=== PATIENT | female | born 1995 | race African-American/Black ===

== ENCOUNTER 2020-11-04 13:25 | Emergency (ER) | payer OTHER ==
[2020-11-04] MEDS ORDERED: NA CHLORIDE 0.9% 1,000 ML ONE (15:56)
[2020-11-04] MEDS ORDERED: MORPHINE 4 MG/ML SYR ONE (15:56)
--- NOTE | 2020-11-04 16:31 | ER ---
Nurse's Notes [facility] Name: Nicole Wolff Age: 24 yrs Sex: Female : 1995 Arrival Date: 11/04/2020 Time: 13:26 Bed 25 Private MD: Diagnosis: Migraine Presentation: 11/04 13:50 Chief complaint: Patient states: I have migraine since yesterday. Almost 8 weeks ca1 . Coronavirus screen: Client denies travel out of the [place] in the last 14 days. headache, Client presents with at least one sign or symptom that may indicate coronavirus-19. Standard/surgical mask placed on the client. Provider contacted for isolation considerations. Ebola Screen: Patient negative for fever greater than or equal to 101.5 degrees Fahrenheit, and additional compatible Ebola Virus Disease symptoms Patient denies exposure to infectious person. Patient denies travel to an Ebola-affected area in the 21 days before illness onset. No symptoms or risks identified at this time. Initial Sepsis Screen: Does the patient meet any 2 criteria? No. Patient's initial sepsis screen is negative. Does the patient have a suspected source of infection? No. Patient's initial sepsis screen is negative. Risk Assessment: Do you want to hurt yourself or someone else? Patient reports no desire to harm self or others. Onset of symptoms was November 04, 2020. 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 - Social history:: Smoking status: Patient denies any tobacco usage or history of. - Family history:: not pertinent. - Hospitalizations: : No recent hospitalization is reported. Screenin:53 Abuse screen: Denies threats or abuse. Denies injuries from another. Nutritional zb screening: No deficits noted. Tuberculosis screening: No symptoms or risk factors identified. Fall Risk No fall in past 12 months (0 pts). No secondary diagnosis (0 pts). IV access (20 points). Ambulatory Aid- None/Bed Rest/Nurse Assist (0 pts). Gait- Normal/Bed Rest/Wheelchair (0 pts) Mental Status- Oriented to own ability (0 pts). Total Schultz Fall Scale indicates No Risk (0-24 pts). Assessment: 15:30 General: Appears in no apparent distress. uncomfortable, Behavior is calm, cooperative, zb appropriate for age. Pain: Complains of pain in left eye and left rastafarian Pain does not radiate. Pain currently is 8 out of 10 on a pain scale. Quality of pain is described as throbbing, Pain began 1 day ago. Is continuous. 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 Speech is normal, Facial symmetry appears normal, Pupils are PERRLA, Reports headache in left frontal area, photophobia. Cardiovascular: Capillary refill < 3 seconds in bilateral fingers Pulses are all present. Respiratory: Airway is patent Respiratory effort is even, unlabored, Respiratory pattern is regular. GI: No signs and/or symptoms were reported involving the gastrointestinal system. : No signs and/or symptoms were reported regarding the genitourinary system. Reports 8 weeks . EENT: No signs and/or symptoms were reported regarding the EENT system. Derm: Skin is intact, is healthy with good turgor, Skin is normal. Musculoskeletal: Circulation, motion, and sensation intact. Capillary refill < 3 seconds, in bilateral Range of motion: intact in all extremities. 16:44 Reassessment: Patient appears in no apparent distress at this time. Patient and/or jd3 family updated on plan of care and expected duration. Pain level reassessed. Patient is alert, oriented x 3, equal unlabored respirations, skin warm/dry/pink. Patient states feeling better. Vital Signs: 13:50 BP 117 / 87; Pulse 83; Resp 16 S; Temp 97.6(TE); Pulse Ox 100% on R/A; Weight 61.69 kg ca1 (R); Height 5 ft. 1 in. (154.94 cm) (R); Pain 10/10; 16:47 BP 105 / 73; Pulse 78; Resp 17 S; Pulse Ox 100% on R/A; jd3 13:50 Body Mass Index 25.70 (61.69 kg, 154.94 cm) ca1 Gordy Coma Score: 16:29 Eye Response: spontaneous(4). Verbal Response: oriented(5). Motor Response: obeys rn commands(6). Total: 15. ED Course: 13:26 Patient arrived in ED. ag5 13:51 Triage completed. ca1 13:52 Arm band placed on right wrist. ca1 15:17 Jc Olivier MD is Attending Physician. rn 15:33 Lady Joya RN is Primary Nurse. zb 15:53 Inserted saline lock: 20 gauge in right antecubital area, using aseptic technique. jd3 16:44 No provider procedures requiring assistance completed. IV discontinued, intact, jd3 bleeding controlled, No redness/swelling at site. Pressure dressing applied. 16:46 Patient has correct armband on for positive identification. Bed in low position. Call jd3 light in reach. Side rails up X 1. Adult w/ patient. Administered Medications: 15:47 Drug: NS 0.9% 1000 ml Route: IV; Rate: 1000 ml; Site: right antecubital; zb 16:48 Follow up: Response: No adverse reaction; IV Status: Completed infusion; IV Intake: jd3 1000ml 15:47 Drug: morphine 4 mg Route: IVP; Site: right antecubital; zb 16:48 Follow up: Response: No adverse reaction; RASS: Alert and Calm (0) jd3 Intake: 16:48 IV: 1000ml; Total: 1000ml. jd3 Outcome: 16:30 Discharge ordered by . rn 16:44 Discharged to home ambulatory. jd3 16:44 Condition: stable 16:44 Discharge instructions given to patient, Instructed on discharge instructions, follow up and referral plans. Demonstrated understanding of instructions, follow-up care. 16:48 Patient left the ED. jd3 Signatures: Jc Olivier MD MD rn Davies, Jonathon, RN RN jd3 Acob, Cheryl, RN RN ca1 [facility] Lady Joya RN RN zmarcella
--- NOTE | 2020-11-04 16:31 | EDPHYS ---
Physician Documentation [facility] Name: Nicole Wolff Age: 24 yrs Sex: Female : 1995 Arrival Date: 11/04/2020 Time: 13:26 Bed 25 Private MD: ED Physician Jc Olivier HPI: 11/04 15:50 This 24 yrs old Female presents to ER via Ambulatory with complaints of Headache > rn 24hrs Old. 15:50 The patient complains of pain to the . The patient complains of pain to the forehead. rn The patient describes the headache as aching. 15:50 Onset: The symptoms/episode began/occurred yesterday. Associated signs and symptoms: rn Pertinent positives: nausea, Pertinent negatives: altered mental status, neck stiffness, rash, vision changes, vision loss, weakness, vertigo. Severity of symptoms: At its worst the pain was moderate, in the emergency department the pain has improved. The patient has experienced similar episodes in the past. Reports hx of migraines, cant take her normal migraine cocktail because is 8 weeks , tylenol not working, similar to her previous migraines, no focal neuro or vision complaints. . 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 - Social history:: Smoking status: Patient denies any tobacco usage or history of. - Family history:: not pertinent. - Hospitalizations: : No recent hospitalization is reported. ROS: 15:50 Constitutional: Negative for fever, chills, and weight loss, Eyes: Negative for injury, rn pain, redness, and discharge, Neck: Negative for injury, pain, and swelling, Cardiovascular: Negative for chest pain, palpitations, and edema, Respiratory: Negative for shortness of breath, cough, wheezing, and pleuritic chest pain, Abdomen/GI: Negative for abdominal pain, diarrhea, and constipation, Back: Negative for injury and pain, : Negative for injury, bleeding, discharge, and swelling, MS/Extremity: Negative for injury and deformity, Skin: Negative for injury, rash, and discoloration, Neuro: Negative for weakness, numbness, tingling, and seizure. Exam: 15:50 Constitutional: This is a well developed, well nourished patient who is awake, alert, rn and in no acute distress. Head/Face: Normocephalic, atraumatic. Eyes: Pupils equal round and reactive to light, extra-ocular motions intact. Lids and lashes normal. Conjunctiva and sclera are non-icteric and not injected. Cornea within normal limits. Periorbital areas with no swelling, redness, or edema. ENT: MMM Neck: Supple, full range of motion, No Meningismus. Cardiovascular: Regular rate and rhythm. No pulse deficits. Respiratory: No increased work of breathing, no retractions or nasal flaring. Abdomen/GI: soft, non-tender MS/ Extremity: Pulses equal, no cyanosis. Neurovascular intact. Full, normal range of motion. Equal circumference. Neuro: Awake and alert, GCS 15, oriented to person, place, time, and situation. Cranial nerves II-XII grossly intact. Motor strength 5/5 in all extremities. Sensory grossly intact. Cerebellar exam normal Vital Signs: 13:50 BP 117 / 87; Pulse 83; Resp 16 S; Temp 97.6(TE); Pulse Ox 100% on R/A; Weight 61.69 kg ca1 (R); Height 5 ft. 1 in. (154.94 cm) (R); Pain 10/10; 16:47 BP 105 / 73; Pulse 78; Resp 17 S; Pulse Ox 100% on R/A; jd3 13:50 Body Mass Index 25.70 (61.69 kg, 154.94 cm) ca1 Ohlman Coma Score: 16:29 Eye Response: spontaneous(4). Verbal Response: oriented(5). Motor Response: obeys rn commands(6). Total: 15. MDM: 15:17 Patient medically screened. rn 16:29 Differential diagnosis: migraine, tension headache, vasomotor headache. Data reviewed: rn vital signs, nurses notes, and as a result, I will discharge patient. Counseling: I had a detailed discussion with the patient and/or guardian regarding: the historical points, exam findings, and any diagnostic results supporting the discharge/admit diagnosis, the need for outpatient follow up, to return to the emergency department if symptoms worsen or persist or if there are any questions or concerns that arise at home. Response to treatment: the patient's symptoms have markedly improved after treatment, and as a result, I will discharge patient. Special discussion: I discussed with the patient/guardian in detail that at this point there is no indication for admission to the hospital. It is understood, however, that if the symptoms persist or worsen the patient needs to return immediately for re-evaluation. ED course: Pt improved, sleeping, ready to go home, normal neuro exam. . 11/04 15:24 Order name: IV Start; Complete Time: 16:00 rn Administered Medications: 15:47 Drug: NS 0.9% 1000 ml Route: IV; Rate: 1000 ml; Site: right antecubital; zb 16:48 Follow up: Response: No adverse reaction; IV Status: Completed infusion; IV Intake: jd3 1000ml 15:47 Drug: morphine 4 mg Route: IVP; Site: right antecubital; zb 16:48 Follow up: Response: No adverse reaction; RASS: Alert and Calm (0) jd3 Disposition: 11/04/20 16:30 Discharged to Home. Impression: Migraine. - Condition is Stable. - Discharge Instructions: Migraine Headache. - Medication Reconciliation Form, Thank You Letter, Antibiotic Education, Prescription Opioid Use form. - Follow up: Private Physician; When: As needed; Reason: Recheck today's complaints, Re-evaluation by your physician. - Problem is new. - Symptoms have improved. Signatures: Jc Olivier MD MD rn Davies, Jonathon, RN RN jd3 Acob, Cheryl, RN RN ca1 Brown, Zipporah, RN RN zmarcella Corrections: (The following items were deleted from the chart) 16:48 16:30 11/04/2020 16:30 Discharged to Home. Impression: Migraine. Condition is Stable. jd3 Forms are Medication Reconciliation Form, Thank You Letter, Antibiotic Education, Prescription Opioid Use. Follow up: Private Physician; When: As needed; Reason: Recheck today's complaints, Re-evaluation by your physician. Problem is new. Symptoms have improved. rn
[2020-11-07 21:17] VITALS: TEMP 97.6; O2SAT 100
[2020-11-07 21:19] VITALS: BP 105/73
== END 2020-11-04 16:48 | disposition home or self-care (01) ==
LOC: ER 13:25
DX: O26.891 Other specified pregnancy related conditions, first trimester (principal); Z3A.08 8 weeks gestation of pregnancy
CPT/HCPCS: 96361; 96374; 99283; J7030

== ENCOUNTER 2022-07-24 19:17 | Emergency (ER) | payer OTHER ==
--- OUTSIDE RECORDS SUMMARY | 2022-07-24 19:21 | XMS REPORT | Continuity of Care Document ---
:1995 Author Organization [facility] t Address [address] [place] [address] Care Team Providers Name Role Phone DELORES SOLOMON Primary Care Physician Unavailable BONILLA AMAYA Attending Clinician Unavailable KIM KO Attending Clinician Unavailable Kim Rowland Attending Clinician Doctor Unassigned, [place] Attending Clinician Unavailable Lorna Candelario Attending Clinician [facility] Attending Clinician Unavailable [facility] Admitting Clinician Unavailable Payers Payer Name Policy Type Policy Number Effective Date Expiration Date S ource [place]ICA[place] [id number] 2022 00:00:[address] [facility] [id number] 2020 00:00:00 Problems Condition Condition Condition Status Onset Resolution Last Treating Co mments Source Name Details Category Date Date Treatment Clinician Date COVID-19 COVID-19 Disease Active Unive rs 7-13 ity of 00:00: [place] [address] Medical Branch Strep Strep Disease Active Univers pharyngiti pharyngiti 06-10 it y of s s 00:00: [place] [address] Medical Branch Encounter Encounter Disease Active Uni vers for other for other 06-24 ity of general general 00:00: [place] counseling counseling 00 Me dical or advice or advice Bran ch on on contracept contracept ion ion Atypical Atypical Disease Active 2020-1 Overview: Un taryn squamous squamous 2-10 Formattin ity of cell cell 00:00: g of this [place] changes of changes of 00 note Me dical undetermin undetermin might be Branch ed ed different significan significan from the ce (ASCUS) ce (ASCUS) original. on vaginal on vaginal Repeat cytology cytology pap smear in 1 year Overweight Overweight Disease Active 2019-11 U nivers (BMI (BMI 1-25 ity of 25.0-29.9) 25.0-29.9[place] [facility] Genital Genital Disease Active Univers herpes herpes 8-14 ity of simplex simplex 00:00: [address] Allergies, Adverse Reactions, Alerts Allergy Allergy Status Severity Reaction(s) Onset Inactive Treating Comm ents Source Name Type Date Date Clinician NO KNOWN Drug Active Univers ALLERGIE Class ity of S [facility] Social History Social Habit Start Date Stop Date Quantity Comments Source Exposure to 2022-05-31 2022-06-10 Not sure [facility]-CoV-2 00:00:00 12:36:00 [facility] (event) [place] Alcohol intake 2022-04-01 2022-04-01 Ex-drinker [facility] 00:00:00 00:00:00 (finding) [facility] Tobacco use and 2020-10-23 2020-10-23 Smokeless tobacco Un iversity of exposure 00:00:00 00:00:[address] [facility] Sex Assigned At [birth year] Universit y of 00:00:00 00:00:00 [facility] Smoking Status Start Date Stop Date Source Never smoked tobacco [facility] Medications Ordered Filled Start Stop Current Ordering Indication Dosage Frequency Signature Comments Components Source Medication Medication Date Date Medication? Clinician (SIG) Name Name ondansetron Yes [id number] 4mg Take 1 Univers (ZOFRAN) 4 7-13 tablet by ity of mg tablet 00:00: mouth [place] 00 every 8 Medical (eight) Branch hours. amoxicillin 2021- Yes [id number] 500mg Take 1 Univers 500 mg 7-13 07-24 capsule by ity of capsule 00:00: 04:59 mouth in [place] 00 :00 the Medical morning Branch and 1 capsule at noon and 1 capsule in the evening. Do all this for 10 days. dexAMETHaso 2021- Yes [id number] 9mg Take 1.5 Univers ne 7-13 07-14 tablets by ity of (DECADRON) 00:00: 04:59 mouth once [place] 6 mg tablet 00 :00 now for 1 Med ical dose. Branch loratadine Yes [id number] 10mg Take 1 U nivers 10 mg 5-04 tablet by ity of tablet 00:00: mouth [place] 00 daily. Medical Branch fluticasone Yes [id number] 2{spray Use 2 Univers propionate 5-04 } Sprays in ity of 50 00:00: each [place] mcg/actuati 00 nostril Medic al on nasal daily. Branch spray loratadine Yes [id number] 10mg Take 1 U nivers 10 mg 5-04 tablet by ity of tablet 00:00: mouth [place] 00 daily. Medical Branch fluticasone Yes [id number] 2{spray Use 2 Univers propionate 5-04 } Sprays in ity of 50 00:00: each [place] mcg/actuati 00 nostril Medic al on nasal daily. Branch spray NUVARING 2020-11 Yes [id number] 1{each} Insert 1 Univers 0.12-0.015 2-09 Each into ity of mg/24 hr 00:00: vagina [place] vaginal 00 once every Medica l insert month. Branch Insert vaginally and leave in place for 3 consecutiv e weeks, then remove for 1 week. NUVARING 2020-11 Yes [id number] 1{each} Insert 1 Univers 0.12-0.015 2-09 Each into ity of mg/24 hr 00:00: vagina [place] vaginal 00 once every Medica l insert month. Branch Insert vaginally and leave in place for 3 consecutiv e weeks, then remove for 1 week. NUVARING 2020-11 Yes [id number] 1{each} Insert 1 Univers 0.12-0.015 2-09 Each into ity of mg/24 hr 00:00: vagina [place] vaginal 00 once every Medica l insert month. Branch Insert vaginally and leave in place for 3 consecutiv e weeks, then remove for 1 week. NUVARING 2020-11 Yes [id number] 1{each} Insert 1 Univers 0.12-0.015 2-09 Each into ity of mg/24 hr 00:00: vagina [place] vaginal 00 once every Medica l insert month. Branch Insert vaginally and leave in place for 3 consecutiv e weeks, then remove for 1 week. triamcinolo 2020-11 Yes Univer s ne 1-05 ity of acetonide 00:00: [place] 0.1 % 00 Medical ointment Branch triamcinolo 2020-11 Yes Univer s ne 1-05 ity of acetonide 00:00: [place] 0.1 % 00 Medical ointment Branch triamcinolo 2020-11 Yes Univer s ne 1-05 ity of acetonide 00:00: [place] 0.1 % 00 [facility] Yes Univer s ne 1-05 ity of acetonide 00:00: [place] 0.1 % 00 Medical ointment Branch Immunizations Ordered Filled Immunization Date Status Comments [facility] e Immunization Name Name Hep B, Adol or Pedi 2000-12-31 Completed Unive rsity of Dosage 00:00:00 [facility] Hep B, Adol or Pedi 2000-12-31 Completed Unive rsity of Dosage 00:00:00 [facility] Hep B, Adol or Pedi 2000-12-31 Completed Unive rsity of Dosage 00:00:00 [facility] Hep B, Adol or Pedi 2000-12-31 Completed [facility] University of 00:00:00 [facility] HIB 4 Dose Schedule 1998-08-30 Completed [facility]ity [facility] University of 00:00:00 [facility] HIB 4 Dose Schedule 1998-08-30 Completed Unive rsity [facility] Com[facility] University of 00:00:00 [facility] HIB 4 Dose Schedule 1998-08-30 Completed [facility]ive rsity [facility] Com[facility] University of 00:00:00 [facility] HIB 4 Dose Schedule 1998-08-30 Completed Unive rsity of 00:00:00 [facility] Hep B, Adol or Pedi 1997-06-24 Completed Unive rsity of Dosage 00:00:00 [facility] Branch Hep B, Adol or Pedi 1997-06-24 Completed Unive rsity of Dosage 00:00:00 [place] [facility] Hep B, Adol or Pedi 1997-06-24 Completed Unive rsity of Dosage 00:00:00 [facility] Branch Hep B, Adol or Pedi 1997-06-24 Completed Unive rsity of Dosage 00:00:00 [facility] HIB 4 Dose Schedule 1997-06-21 Completed Unive rsity of 00:00:00 [facility] Branch DTP 1997-06-21 Completed University of 00:00:00 [facility] Branch Polio (IPV/OPV) 1997-06-21 Completed Universit y of 00:00:00 [facility] HIB 4 Dose Schedule 1997-06-21 Completed Unive rsity of 00:00:00 [facility] DTP 1997-06-21 Completed University of 00:00:00 [facility] Polio (IPV/OPV) 1997-06-21 Completed Universit y of 00:00:00 [facility] HIB 4 Dose Schedule 1997-06-21 Completed Unive rsity of 00:00:00 [facility] DTP 1997-06-21 Completed University of 00:00:00 [facility] Branch Polio (IPV/OPV) 1997-06-21 Completed Universit y of 00:00:00 [facility] HIB 4 Dose Schedule 1997-06-21 Completed Unive rsity of 00:00:00 [facility] DTP 1997-06-21 Completed University of 00:00:00 [facility] Branch Polio (IPV/OPV) 1997-06-21 Completed Universit y of 00:00:00 [facility] HIB 4 Dose Schedule 1997-03-15 Completed Unive rsity of 00:00:00 [facility] Branch DTP 1997-03-15 Completed University of 00:00:00 [facility] Branch MMR 1997-03-15 Completed University of 00:00:00 [facility] Branch Polio (IPV/OPV) 1997-03-15 Completed Universit y of 00:00:00 [facility] HIB 4 Dose Schedule 1997-03-15 Completed Unive rsity of 00:00:00 [facility] Branch DTP 1997-03-15 Completed University of 00:00:00 [facility] Branch MMR 1997-03-15 Completed University of 00:00:00 [facility] Polio (IPV/OPV) 1997-03-15 Completed Universit y of 00:00:00 [facility] HIB 4 Dose Schedule 1997-03-15 Completed Unive rsity of 00:00:00 [facility] Branch DTP 1997-03-15 Completed University of 00:00:00 [facility] MMR 1997-03-15 Completed University of 00:00:00 [facility] Polio (IPV/OPV) 1997-03-15 Completed Universit y of 00:00:00 [facility] HIB 4 Dose Schedule 1997-03-15 Completed Unive rsity of 00:00:00 [facility] DTP 1997-03-15 Completed University of 00:00:00 [facility] MMR 1997-03-15 Completed University of 00:00:00 [facility] Polio (IPV/OPV) 1997-03-15 Completed Universit y of 00:00:00 [facility] Hep B, Adol or Pedi 1996-10-03 Completed Unive rsity of Dosage 00:00:00 [facility] Hep B, Adol or Pedi 1996-10-03 Completed Unive rsity of Dosage 00:00:00 [facility] Hep B, Adol or Pedi 1996-10-03 Completed Unive rsity of Dosage 00:00:00 [facility] Branch Hep B, Adol or Pedi 1996-10-03 Completed Unive rsity of Dosage 00:00:00 [facility] HIB 4 Dose Schedule 1996-03-03 Completed Unive rsity of 00:00:00 [facility] DTP 1996-03-03 Completed University of 00:00:00 [facility] Polio (IPV/OPV) 1996-03-03 Completed Universit y of 00:00:00 [facility] HIB 4 Dose Schedule 1996-03-03 Completed Unive rsity of 00:00:00 [facility] DTP 1996-03-03 Completed University of 00:00:00 [facility] Polio (IPV/OPV) 1996-03-03 Completed Universit y of 00:00:00 [facility] HIB 4 Dose Schedule 1996-03-03 Completed Unive rsity of 00:00:00 [facility] DTP 1996-03-03 Completed University of 00:00:00 [facility] Polio (IPV/OPV) 1996-03-03 Completed Universit y of 00:00:00 [facility] HIB 4 Dose Schedule 1996-03-03 Completed Unive rsity of 00:00:00 [facility] DTP 1996-03-03 Completed University of 00:00:00 [facility] Polio (IPV/OPV) 1996-03-03 Completed Universit y of 00:00:00 [facility] Vital Signs Vital Name Observation Time Observation Value Comments Source Systolic blood 2022-06-10 17:40:00 141 mm[Hg] Univer sity of pressure [facility] Diastolic blood 2022-06-10 17:40:00 85 mm[Hg] Unive rsity of pressure [facility] Heart rate 2022-06-10 17:40:00 98 /min Universi ty of [facility] Body temperature 2022-06-10 17:40:00 37.89 [address] [facility] Respiratory rate 2022-06-10 17:40:00 18 /min Univ ersity of [facility] Body weight 2022-06-10 17:40:[address] [facility] BMI 2022-06-10 17:40:00 24.51 kg/m2 Universi ty of [facility] Oxygen saturation in 2022-06-10 17:40:00 99 /min University of Arterial blood by [facility] Pulse oximetry Branch Systolic blood 2022-04-01 15:28:00 128 mm[Hg] Univer sity of pressure [facility] Diastolic blood 2022-04-01 15:28:00 95 mm[Hg] Unive rsity of pressure [facility] Heart rate 2022-04-01 15:28:00 99 /min Universi ty of [facility] Body temperature 2022-04-01 15:28:00 36.83 Lisa Univ [address] of [facility] Respiratory rate 2022-04-01 15:28:00 18 /min Univ ersity of [facility] Body height 2022-04-01 15:28:00 157.[address] [facility] Body weight 2022-04-01 15:28:[address] [facility] BMI 2022-04-01 15:28:00 25.97 kg/m2 Universi ty of [facility] Oxygen saturation in 2022-04-01 15:28:00 99 /min University of Arterial blood by [facility] Pulse oximetry Branch Procedures Procedure Date / Time Performed Performing Clinician Sour e RAPID STREP SCREEN 2022-06-10 17:43:00 Bonilla Amaya [facility] FOR GROUP A Medical Branch RAPID INFLUENZA A/B 2022-06-10 17:43:00 Bonilla Amaya [facility] ty of [facility] COVID-19 (ID NOW 2022-06-10 17:43:00 Bonilla Amaya [facility] RAPID TESTING) Medical Branch CONSENT/REFUSAL FOR 2022-06-10 17:36:51 [facility] Name Medical Branch TREATMENT NOTICE OF PRIVACY 2022-04-01 15:24:13 Doctor Unassigned, No Univ ersity [facility] PRACTICES Name Medical Branch CONSENT/REFUSAL FOR 2022-04-01 15:24:01 Doctor Unassigned, [facility] AND Name Medical Branch TREATMENT Encounters Start End Encounter Admission Attending Care Care Encounter Source Date/Time Date/Time Type Type Clinicians Facility Department ID 2022-06-10 2022-06-10 [facility] [id number] Univers 12:45:00 13:31:00 [facility] 2022-06-10 [facility] [id number] Univers 12:45:00 13:31:00 Bonilla PHIPPS [id number] i ty of [place] [id number] [facility] [id number] [place] [address] Branch 2022-04-01 2022-04-01 [facility] [id number] Univers 10:28:00 12:01:00 KIM bull [facility] [place] [facility] 2022-04-01 2022-04-01 [facility] [id number] Univers 10:28:00 12:01:00 Kim PHIPPS [id number] i ty of [place] [id number] [facility] [phone] [place] [id number] Branch 2022-04-01 2022-04-01 Orders Doctor ANTONINO [id number] Univers 00:00:00 00:00:00 Only Unassigned, WALTER [id number] ity of [place] [facility] [id number] [place] as [phone] [address] 2022-03-14 2022-03-14 Stephane Kincaid [facility] [id number] Univers 00:00:00 00:00:00 Lorna Drummond [employer] [id number] it y of [facility] [id number] [place] as MATERNAL [phone] Med ical & CHILD [address] [place] [address] 2021-05-23 2021-05-23 Outpatient X [facility] LISA [id number] Univers 18:31:00 23:25:[address] [facility] Results This patient has no known results.
[2022-07-24 19:44] LABS: Absolute Lymphocytes (CBC) 1.4 K/uL (0.7-4.9); Hematocrit 34.6 % (36.0-45.0); Lymphocytes % 13.6 % (15.3-44.8); MCV 76.4 fL (80-100); MPV 7.8 fL (7.6-11.3); RBC Red Blood Cell Count 4.52 M/uL (3.86-4.86)
[2022-07-24 20:02] LABS: Albumin 3.5 g/dL (3.4-5.0); Bilirubin Total 0.2 mg/dL (0.2-1.0); Potassium 3.3 mmol/L (3.5-5.1); Protein, Total 8.2 g/dL (6.4-8.2)
[2022-07-24] MEDS ORDERED: ONDANSETRON 4 MG/2 ML VIAL ONE ×2 (20:05→20:42)
[2022-07-24] MEDS ORDERED: KETOROLAC 30 MG/ML INJ ONE (20:05)
[2022-07-24] MEDS ORDERED: NA CHLORIDE 0.9% 1,000 ML ONE (20:05)
--- NOTE | 2022-07-24 21:18 | RAD REPORT ---
EXAM DESCRIPTION: CT - Abdomen Pelvis W Contrast - 07/24/2022 8:54 pm CLINICAL HISTORY: Abdominal pain, vomiting COMPARISON: <Comparisons> TECHNIQUE: Biphasic, helical CT imaging of the abdomen and pelvis was performed following 100 ml non -ionic IV contrast. No oral contrast administered. All CT scans are performed using dose optimization technique as appropriate and may include automated exposure control or mA/KV adjustment according to patient size. FINDINGS: No suspicious findings in the lung bases. The liver, spleen, and pancreas show no suspicious findings. Gallbladder and biliary tree are also wi thout suspicious finding. Symmetric renal function is seen with no hydronephrosis or suspicious renal mass. No pyelonephritis o r acute parenchymal process. No bladder abnormalities. No adrenal abnormalities. Uterus and ovaries s how no suspicious findings. No fallopian tube dilatation. No dilated bowel loops or bowel wall thickening. Appendix is normal. No free air, free fluid or infla mmatory stranding. No hernia, mass or bulky lymphadenopathy. No suspicious bony findings. IMPRESSION: Contrast enhanced CT abdomen and pelvis showing no significant or suspicious finding.
[2022-07-24 22:09] LABS: Urine Blood Trace-intact (Negative); Urine Glucose Negative (Negative); Urine Protein Negative (Negative); Urine Specific Gravity 1.015 (1.005-1.030); Urine pH 7.5 (5.0-7.0)
--- NOTE | 2022-07-24 22:44 | EDPHYS ---
Physician Documentation [facility] Name: Nicole Wolff Age: 26 yrs Sex: Female : 1995 Arrival Date: 07/24/2022 Time: 19:19 Bed 8 Private MD: ED Physician Mc Longoria HPI: 07/24 22:41 This 26 yrs old Black Female presents to ER via Ambulatory with complaints of Vomiting. jl9 Patient reports eating some corn from a food truck today.. 22:41 The patient presents to the emergency department with nausea, vomiting. Onset: The jl9 symptoms/episode began/occurred just prior to arrival. Possible causes: bad food exposure. The symptoms are aggravated by nothing. The symptoms are alleviated by nothing. 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 - Social history:: Smoking status: Patient denies any tobacco usage or history of. Patient/guardian denies using alcohol. ROS: 22:41 Constitutional: Negative for fever, chills, and weight loss, Eyes: Negative for injury, jl9 pain, redness, and discharge, ENT: Negative for injury, pain, and discharge, Neck: Negative for injury, pain, and swelling, Cardiovascular: Negative for chest pain, palpitations, and edema, Respiratory: Negative for shortness of breath, cough, wheezing, and pleuritic chest pain. 22:41 Back: Negative for injury and pain, : Negative for injury, bleeding, discharge, and swelling, MS/Extremity: Negative for injury and deformity, Skin: Negative for injury, rash, and discoloration, Neuro: Negative for headache, weakness, numbness, tingling, and seizure, Psych: Negative for depression, anxiety, suicide ideation, homicidal ideation, and hallucinations, Allergy/Immunology: Negative for hives, rash, and allergies, Endocrine: Negative for neck swelling, polydipsia, polyuria, polyphagia, and marked weight changes, Hematologic/Lymphatic: Negative for swollen nodes, abnormal bleeding, and unusual bruising. 22:41 Abdomen/GI: Positive for abdominal pain, nausea and vomiting. Exam: 22:42 Constitutional: This is a well developed, well nourished patient who is awake, alert, jl9 and in no acute distress. Head/Face: Normocephalic, atraumatic. Eyes: Pupils equal round and reactive to light, extra-ocular motions intact. Lids and lashes normal. Conjunctiva and sclera are non-icteric and not injected. Cornea within normal limits. Periorbital areas with no swelling, redness, or edema. ENT: Mucous membranes moist. Neck: Trachea midline, no thyromegaly or masses palpated, and no cervical lymphadenopathy. Supple, full range of motion without nuchal rigidity, or vertebral point tenderness. No Meningismus. Chest/axilla: Normal chest wall appearance and motion. Nontender with no deformity. No lesions are appreciated. Cardiovascular: Regular rate and rhythm with a normal S1 and S2. No gallops, murmurs, or rubs. Normal PMI, no JVD. No pulse deficits. Respiratory: Lungs have equal breath sounds bilaterally, clear to auscultation and percussion. No rales, rhonchi or wheezes noted. No increased work of breathing, no retractions or nasal flaring. 22:42 Back: No spinal tenderness. No costovertebral tenderness. Full range of motion. Skin: Warm, dry with normal turgor. Normal color with no rashes, no lesions, and no evidence of cellulitis. MS/ Extremity: Pulses equal, no cyanosis. Neurovascular intact. Full, normal range of motion. Neuro: Awake and alert, GCS 15, oriented to person, place, time, and situation. Cranial nerves II-XII grossly intact. Motor strength 5/5 in all extremities. Sensory grossly intact. Cerebellar exam normal. Normal gait. Psych: Awake, alert, with orientation to person, place and time. Behavior, mood, and affect are within normal limits. 22:42 Abdomen/GI: Inspection: abdomen appears normal, Bowel sounds: normal, Palpation: mild abdominal tenderness. Vital Signs: 19:32 BP 109 / 78; Pulse 53; Resp 20; Temp 97.8(O); Pulse Ox 100% on R/A; Weight 62.14 kg; eh3 Height 5 ft. 1 in. (154.94 cm); Pain 10/10; 21:00 BP 105 / 76; Pulse 80; Resp 16; Pulse Ox 100% on R/A; jb4 22:00 BP 118 / 80; Pulse 77; Resp 16; Pulse Ox 100% on R/A; jb4 19:32 Body Mass Index 25.89 (62.14 kg, 154.94 cm) eh3 MDM: 19:23 Patient medically screened. [facility] 22:41 Data reviewed: vital signs, nurses notes, lab test result(s), radiologic studies. Counseling: I had a detailed discussion with the patient and/or guardian regarding: the historical points, exam findings, and any diagnostic results supporting the discharge/admit diagnosis, lab results, radiology results, the need for outpatient follow up, to return to the emergency department if symptoms worsen or persist or if there are any questions or concerns that arise at home. 22:42 Response to treatment: the patient's symptoms have resolved after treatment. 07/24 19:24 Order name: CBC with Diff; Complete Time: 19:54 [facility] 07/24 19:24 Order name: CMP; Complete Time: 20:36 07/24 19:24 Order name: Lipase; Complete Time: 20:36 07/24 19:24 Order name: SARS-COV-2 RT PCR (Document "Date of Onset" if Symptomatic); Complete Time: 21:04 07/24 20:04 Order name: Test, Serum; Complete Time: 20:36 [facility] 07/24 22:09 Order name: Urine Dipstick-Ancillary; Complete Time: 22:38 EDIA 07/24 19:24 Order name: IV Saline Lock; Complete Time: 19:37 07/24 19:24 Order name: Labs collected and sent; Complete Time: 19:37 07/24 20:04 Order name: CT Abd/Pelvis - IV Contrast Only; Complete Time: 21:24 07/24 22:19 Order name: Urine --Ancillary (enter results); Complete Time: 09:17 wm Administered Medications: 20:00 Drug: NS 0.9% 1000 ml Route: IV; Rate: 1 bolus; Site: right antecubital; jb4 21:00 Follow up: Response: No adverse reaction; IV Status: Completed infusion; IV Intake: jb4 1000ml 20:32 Drug: Ketorolac 15 mg Route: IVP; Site: right antecubital; jb4 21:00 Follow up: Response: No adverse reaction; Marked relief of symptoms jb4 20:37 Drug: Zofran (Ondansetron) 4 mg Route: IVP; Site: right antecubital; jb4 21:00 Follow up: Response: No adverse reaction; Marked relief of symptoms jb4 Disposition: 07/25 09:17 Co-signature as Attending Physician, Mc Longoria DO I was immediately available on-site ms3 in the emergency department for consultation in the care of the patient. Disposition Summary: 07/24/22 22:43 Discharge Ordered Location: Home jl9 Condition: Stable jl9 Diagnosis - Vomiting jl9 Followup: jl9 - With: Private Physician - When: 1 - 2 days - Reason: Recheck today's complaints, Continuance of care, Re-evaluation by your physician Discharge Instructions: - Discharge Summary Sheet jl9 - Nausea and Vomiting, Adult, [id number] jl9 Forms: - Medication Reconciliation Form jl9 - Thank You Letter jl9 - Antibiotic Education jl9 - Prescription Opioid Use jl9 Prescriptions: - ondansetron 8 mg Oral tablet,disintegrating - take 1 tablet by ORAL route every 8 hours As needed; 12 tablet; Refills: 0, jl9 Product Selection Permitted Signatures: Dispatcher [employer] EDAlex Whitley, RN RN jbMc Soni DO DO ms3 Alaina Ojeda, CHRIS RN 3 Broderick Alcantar jl9 Corrections: (The following items were deleted from the chart) 07/24 19:35 19:34 Home Meds: Vitamin Oral tab 1 tab once daily [Inactive]; [place] [id number] 20:12 19:24 Urine Test ordered. jl9 jb4
--- NOTE | 2022-07-24 22:44 | ER ---
Nurse's Notes [facility] Name: Nicole Wolff Age: 26 yrs Sex: Female : 1995 Arrival Date: 07/24/2022 Time: 19:19 Bed 8 Private MD: Diagnosis: Vomiting Presentation: 07/24 19:32 Chief complaint: Patient states: vomiting since 3pm today. Ate some corn that didn't eh3 taste right, then a mild headache started at 2pm and vomiting at 3pm. Coronavirus screen: Vaccine status: Patient reports being unvaccinated. Ebola Screen: No symptoms or risks identified at this time. Initial Sepsis Screen: Does the patient meet any 2 criteria? No. Patient's initial sepsis screen is negative. Does the patient have a suspected source of infection? No. Patient's initial sepsis screen is negative. Risk Assessment: Do you want to hurt yourself or someone else? Patient reports no desire to harm self or others. Onset of symptoms was July 24, 2022. 19:32 Method Of Arrival: Ambulatory [facility] 19:32 Acuity: KERVIN 3 3 Triage Assessment: 19:34 General: Appears distressed, uncomfortable, Behavior is cooperative, appropriate for eh3 age, crying. Pain: Complains of pain in head Pain does not radiate. Pain currently is 5 out of 10 on a pain scale. Quality of pain is described as aching, Pain began 5 hours ago Is continuous. GI: Reports nausea, vomiting, since 3pm; Diarrhea 2 day ago. 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 - Social history:: Smoking status: Patient denies any tobacco usage or history of. Patient/guardian denies using alcohol. Screenin:45 Abuse screen: Denies threats or abuse. Nutritional screening: No deficits noted. jb4 Tuberculosis screening: No symptoms or risk factors identified. Fall Risk None identified. Assessment: 19:30 General: Appears in no apparent distress. uncomfortable, Behavior is calm, cooperative, jb4 appropriate for age. Pain: Complains of pain in abdomen Pain does not radiate. Pain currently is 10 out of 10 on a pain scale. Neuro: Level of Consciousness is awake, alert, obeys commands, Oriented to person, place, time, situation. Cardiovascular: Patient's skin is warm and dry. Respiratory: Airway is patent Respiratory effort is even, unlabored, Respiratory pattern is regular, symmetrical. GI: Abdomen is flat, non-distended, Bowel sounds present X 4 quads. Abd is soft X 4 quads Abd is non tender in umbilical area, suprapubic area, right lower quadrant and left lower quadrant Abdomen is tender to palpation in epigastric area, right upper quadrant and left upper quadrant. : No signs and/or symptoms were reported regarding the genitourinary system. Derm: Skin is intact, Skin is dry, Skin is normal, Skin temperature is warm. Musculoskeletal: Circulation, motion, and sensation intact. Range of motion: intact in all extremities. 21:00 Reassessment: Patient appears in no apparent distress at this time. Patient and/or jb4 family updated on plan of care and expected duration. Pain level reassessed. Patient is alert, oriented x 3, equal unlabored respirations, skin warm/dry/pink. 22:30 Reassessment: Patient appears in no apparent distress at this time. Patient and/or jb4 family updated on plan of care and expected duration. Pain level reassessed. Patient is alert, oriented x 3, equal unlabored respirations, skin warm/dry/pink. Vital Signs: 19:32 BP 109 / 78; Pulse 53; Resp 20; Temp 97.8(O); Pulse Ox 100% on R/A; Weight 62.14 kg; eh3 Height 5 ft. 1 in. (154.94 cm); Pain 10/10; 21:00 BP 105 / 76; Pulse 80; Resp 16; Pulse Ox 100% on R/A; jb4 22:00 BP 118 / 80; Pulse 77; Resp 16; Pulse Ox 100% on R/A; jb4 19:32 Body Mass Index 25.89 (62.14 kg, 154.94 cm) 3 ED Course: 19:19 Patient arrived in ED. jj6 19:21 Broderick Alcantar is PHCP. jl9 19:21 Mc Longoria DO is Attending Physician. jl9 19:23 Alaina Ojeda, RN is Primary Nurse. eh3 19:23 Alex Solis, RN is Primary Nurse. jb4 19:34 Triage completed. eh3 19:34 Arm band placed on right wrist. eh3 19:37 Inserted saline lock: 20 gauge in right antecubital area, using aseptic technique. ds4 Blood collected. 19:38 Primary Nurse role handed off by Alex Solis, RN tw5 19:38 Tawnya Sheehan is Primary Nurse. tw5 19:45 Patient has correct armband on for positive identification. Bed in low position. Call jb4 light in reach. Side rails up X 1. Client placed on continuous cardiac and pulse oximetry monitoring. NIBP monitoring applied. 20:12 Test, Serum Sent. jb4 20:56 CT Abd/Pelvis - IV Contrast Only In Process Unspecified. EDMS 22:59 No provider procedures requiring assistance completed. IV discontinued, intact, jb4 bleeding controlled, No redness/swelling at site. Pressure dressing applied. Administered Medications: 20:00 Drug: NS 0.9% 1000 ml Route: IV; Rate: 1 bolus; Site: right antecubital; jb4 21:00 Follow up: Response: No adverse reaction; IV Status: Completed infusion; IV Intake: jb4 1000ml 20:32 Drug: Ketorolac 15 mg Route: IVP; Site: right antecubital; jb4 21:00 Follow up: Response: No adverse reaction; Marked relief of symptoms jb4 20:37 Drug: Zofran (Ondansetron) 4 mg Route: IVP; Site: right antecubital; jb4 21:00 Follow up: Response: No adverse reaction; Marked relief of symptoms jb4 Medication: 23:01 VIS not applicable for this client. jb4 Intake: 21:00 IV: 1000ml; Total: 1000ml. jb4 Outcome: 22:43 Discharge ordered by . jl9 22:59 Discharged to home ambulatory. jb4 22:59 Condition: stable 22:59 Discharge instructions given to patient, family, Instructed on discharge instructions, follow up and referral plans. medication usage, Demonstrated understanding of instructions, follow-up care, medications, Prescriptions given X 1. 23:01 Patient left the ED. jb4 Signatures: Dispatcher [employer] EDDC Sy Archer 4 Alex Solis, RN RN [id number] Tawnya Sheehan tw5 Jade Jacobson jj6 Alaina Ojeda, CHRIS RN eh3 Broderick Alcantar jl9 Corrections: (The following items were deleted from the chart) 19:35 19:34 Home Meds: Vitamin Oral tab 1 tab once daily [Inactive]; 3 eh3
[2022-07-25] LABS: Urine Specific Gravity/Preg 1.015 (1.005-1.030)
[2022-07-25 01:16] VITALS: TEMP 97.8; O2SAT 100
[2022-07-25 01:34] VITALS: BP 118/80
== END 2022-07-24 23:01 | disposition home or self-care (01) ==
LOC: ER 19:17
DX: R11.10 Vomiting, unspecified (principal); Z20.822 Contact with and (suspected) exposure to COVID-19
CPT/HCPCS: 96361; 85025; 36415; 84703; 81025; 81003; 83690; 80053; 74177; 96375; 96374; 99284; U0003; Q9967; J7030; J2405

== ENCOUNTER 2022-12-07 08:59 | Emergency (ER) | payer OTHER ==
--- OUTSIDE RECORDS SUMMARY | 2022-12-07 09:05 | XMS REPORT | Continuity of Care Document ---
:1995 Author Organization [facility] t Address [address] [place] [address] Care Team Providers Name Role Phone Luly Lou Primary Care Physician [phone] Mani Delacruz Attending Clinician Provider, [facility] Attending Clinician Unavailable Lab, [facility] Attending Clinician Unavailable Unknown, Attending Attending Clinician Unavailable MANI THEODORE Attending Clinician Unavailable BONILLA WHITESIDE Attending Clinician Unavailable KIM KO Attending Clinician Unavailable Kim Rowland Attending Clinician Doctor Unassigned, [place] Attending Clinician Unavailable Luly Lou Attending Clinician Naman Candelario Attending Clinician Sarah Rose MD Attending Clinician LULY SOLOMON Attending Clinician Unavailable HENRIETTA CHAVIRA Attending Clinician Unavailable Henrietta Iqbal Attending Clinician Bryon Currie Attending Clinician Nurse, [facility] Attending Clinician Unavailable MANDIE HARDEN Attending Clinician Unavailable PERCY JOHNSON Attending Clinician Unavailable SALEEM WHEELER Attending Clinician Unavailable NAMAN NESBITT Attending Clinician Unavailable Akinsipe WHCNP, Saleem Wray Attending Clinician [phone] [place] GRAY Attending Clinician Unavailable Columba Gray MD Attending Clinician Joanna RN, Holly M Attending Clinician Unavailable Ultrasound, Ang-Mfm Attending Clinician Unavailable Johnathan VILLELA, Subhash Martinez Attending Clinician Yolanda Nesbitt DO Attending Clinician David Flanagan MD Attending Clinician COLUMBA GRAY Admitting Clinician Unavailable Columba Gray MD Admitting Clinician Payers Payer Name Policy Type Policy Number Effective Date Expiration Date S bam [facility] [id number] 2020 00:00:00 [place] [id number] 2020 00:00:00 Problems Condition Condition Condition Status Onset Resolution Last Treating Co mments Source Name Details Category Date Date Treatment Clinician Date COVID-19 COVID-19 Disease Active Unive rs 7-13 ity of 00:00: [address] Branch Strep Strep Disease Active Univers pharyngiti pharyngiti 7-13 it y of s s 00:00: [address] Branch Encounter Encounter Disease Active Uni vers for other for other 7-27 ity of general general 00:00: [place] counseling counseling 00 Me dical or advice or advice Bran ch on on contracept contracept ion ion 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 on vaginal on vaginal Repeat cytology cytology pap smear in 1 year Overweight Overweight Disease Active 2019-11 U nivers (BMI (BMI 1-25 ity of 25.0-29.9) 25.0[place]29.9[place] [address] [place] [address] Branch Genital Genital Disease Active Univers herpes herpes 8-14 ity of simplex simplex 00:00: [address] Allergies, Adverse Reactions, Alerts Allergy Allergy Status Severity Reaction(s) Onset Inactive Treating Comm ents Source Name Type Date Date Clinician NO KNOWN Drug Active Univers ALLERGIE Class ity of S [facility] Social History Social Habit Start Date Stop Date Quantity Comments Source Exposure to 2022-09-22 2022-10-02 Not sure [facility] SARS-CoV-2 00:00:00 10:14:00 [facility] (event) [place] Alcohol intake 2022-10-02 2022-10-02 Ex-drinker [facility] 00:00:00 00:00:00 (finding) [facility] Tobacco use and 2020-10-23 2020-10-23 Smokeless tobacco Un iversity of exposure 00:00:00 00:00:00 non-user [facility] Sex Assigned At [birth year] Universit y of 00:00:00 00:00:00 [facility] Smoking Status Start Date Stop Date Source Never smoked tobacco [facility] Medications Ordered Filled Start Stop Current Ordering Indication Dosage Frequency Signature Comments Components Source Medication Medication Date Date Medication? Clinician (SIG) Name Name acyclovir 2021-11- Yes [id number] 400mg Take 1 U nivers 400 mg 12-12 tablet by ity of tablet 00:00: 05:59 mouth in [place] 00 :00 the Medical morning Branch and 1 tablet at noon and 1 tablet in the evening. Do all this for 7 days. metroNIDAZO 2021-11- Yes [id number] 500mg Take 1 Univers LE (FLAGYL) 12-0515 tablet by it y of 500 mg 00:00: 05:59 mouth [place] tablet 00 :00 every 12 Medical (twelve) Branch hours for 7 days. metroNIDAZO 2021-11- Yes [id number] 500mg Take 1 Univers LE (FLAGYL) 12-05-15 tablet by it y of 500 mg 00:00: 05:59 mouth [place] tablet 00 :00 every 12 Medical (twelve) Branch hours for 7 days. metroNIDAZO 2021-11- Yes [id number] 500mg Take 1 Univers LE (FLAGYL) 12-0515 tablet by it y of 500 mg 00:00: 05:59 mouth [place] tablet 00 :00 every 12 Medical (twelve) Branch hours for 7 days. ondansetron 2022-0 Yes [id number] 4mg Take 1 Univers (ZOFRAN) 4 7-13 tablet by ity of mg tablet 00:00: mouth [place] 00 every 8 Medical (eight) Branch hours. ondansetron 2021-0 Yes [id number] 4mg Take 1 Univers (ZOFRAN) 4 7-13 tablet by ity of mg tablet 00:00: mouth [place] 00 every 8 Medical (eight) Branch hours. ondansetron 2021-0 Yes [id number] 4mg Take 1 Univers (ZOFRAN) 4 7-13 tablet by ity of mg tablet 00:00: mouth [place] 00 every 8 Medical (eight) Branch hours. ondansetron 2021-0 Yes [id number] 4mg Take 1 Univers (ZOFRAN) 4 7-13 tablet by ity of mg tablet 00:00: mouth [place] 00 every 8 Medical (eight) Branch hours. ondansetron 2021-0 Yes [id number] 4mg Take 1 Univers (ZOFRAN) 4 7-13 tablet by ity of mg tablet 00:00: mouth [place] 00 every 8 Medical (eight) Branch hours. ondansetron 2021-0 Yes [id number] 4mg Take 1 Univers (ZOFRAN) 4 7-13 tablet by ity of mg tablet 00:00: mouth [place] 00 every 8 Medical (eight) Branch hours. ondansetron 2021-0 Yes [id number] 4mg Take 1 Univers (ZOFRAN) 4 7-13 tablet by ity of mg tablet 00:00: mouth [place] 00 every 8 Medical (eight) Branch hours. amoxicillin 2021-0 2021- No [id number] 500mg Take 1 Univers 500 mg 06-10 07-24 capsule by ity of capsule 00:00: 04:59 mouth in [place] 00 :00 the Medical morning Branch and 1 capsule at noon and 1 capsule in the evening. Do all this for 10 days. dexAMETHaso 2021-0 2021- No [id number] 9mg Take 1.5 Univers ne 06-10 07-14 tablets by ity of (DECADRON) 00:00: 04:59 mouth once [place] 6 mg tablet 00 :00 now for 1 Med ical dose. Branch loratadine 2021-0 Yes [id number] 10mg Take 1 U nivers 10 mg 5-04 tablet by ity of tablet 00:00: mouth [place] 00 daily. Medical Branch fluticasone Yes [id number] 2{spray Use 2 Univers propionate 5-04 } Sprays in ity of 50 00:00: each [place] mcg/actuati 00 nostril Medic al on nasal daily. Branch spray loratadine 0 Yes [id number] 10mg Take 1 U nivers 10 mg 5-04 tablet by ity of tablet 00:00: mouth [place] 00 daily. Medical Branch fluticasone 0 Yes [id number] 2{spray Use 2 Univers propionate 5-04 } Sprays in ity of 50 00:00: each [place] mcg/actuati 00 nostril Medic al on nasal daily. Branch spray loratadine 0 Yes [id number] 10mg Take 1 U nivers 10 mg 5-04 tablet by ity of tablet 00:00: mouth [place] 00 daily. Medical Branch fluticasone Yes [id number] 2{spray Use 2 Univers propionate 5-04 } Sprays in ity of 50 00:00: each [place] mcg/actuati 00 nostril Medic al on nasal daily. Branch spray loratadine 0 Yes [id number] 10mg Take 1 U nivers 10 mg 5-04 tablet by ity of tablet 00:00: mouth [place] 00 daily. Medical Branch fluticasone 0 Yes [id number] 2{spray Use 2 Univers propionate 5-04 } Sprays in ity of 50 00:00: each [place] mcg/actuati 00 nostril Medic al on nasal daily. Branch spray loratadine 0 Yes [id number] 10mg Take 1 U nivers 10 mg 5-04 tablet by ity of tablet 00:00: mouth [place] 00 daily. Medical Branch fluticasone 0 Yes [id number] 2{spray Use 2 Univers propionate 5-04 } Sprays in ity of 50 00:00: each [place] mcg/actuati 00 nostril Medic al on nasal daily. Branch spray loratadine 2021-0 Yes [id number] 10mg Take 1 U nivers 10 mg 5-04 tablet by ity of tablet 00:00: mouth [place] 00 daily. Medical Branch fluticasone 2021-0 Yes [id number] 2{spray Use 2 Univers propionate 5-04 } Sprays in ity of 50 00:00: each [place] mcg/actuati 00 nostril Medic al on nasal daily. Branch spray loratadine 0 Yes [id number] 10mg Take 1 U nivers 10 mg 5-04 tablet by ity of tablet 00:00: mouth [place] 00 daily. Medical Branch fluticasone 0 Yes [id number] 2{spray Use 2 Univers propionate 5-04 } Sprays in ity of 50 00:00: each [place] mcg/actuati 00 nostril Medic al on nasal daily. Branch spray loratadine Yes [id number] 10mg Take 1 U nivers 10 mg 5-04 tablet by ity of tablet 00:00: mouth [place] 00 daily. Medical Branch fluticasone Yes [id number] 2{spray Use 2 Univers propionate 5-04 } Sprays in ity of 50 00:00: each [place] mcg/actuati 00 nostril Medic al on nasal daily. Branch spray NUVARING 2020-11 Yes [id number] 1{each} Insert 1 Univers 0.12-0.015 2-09 Each into ity of mg/24 hr 00:00: vagina [place] vaginal 00 once every Medica l insert month. Branch Insert vaginally and leave in place for 3 consecutiv e weeks, then remove for 1 week. NUVARING 2020-11 Yes [id number] 1{each} Insert 1 Univers 0.12-0.015 2-09 Each into ity of mg/24 hr 00:00: vagina [place] vaginal 00 once every Medica l insert month. Branch Insert vaginally and leave in place for 3 consecutiv e weeks, then remove for 1 week. NUVARING 2020-11 Yes [id number] 1{each} Insert 1 Univers 0.12-0.015 2-09 Each into ity of mg/24 hr 00:00: vagina [place] vaginal 00 once every Medica l insert month. Branch Insert vaginally and leave in place for 3 consecutiv e weeks, then remove for 1 week. NUVARING 2020-11 Yes [id number] 1{each} Insert 1 Univers 0.12-0.015 2-09 Each into ity of mg/24 hr 00:00: vagina [place] vaginal 00 once every Medica l insert month. Branch Insert vaginally and leave in place for 3 consecutiv e weeks, then remove for 1 week. NUVARING 2020-11 Yes [id number] 1{each} Insert 1 Univers 0.12-0.015 2-09 Each into ity of mg/24 hr 00:00: vagina [place] vaginal 00 once every Medica l insert month. Branch Insert vaginally and leave in place for 3 consecutiv e weeks, then remove for 1 week. NUVARING 2020-11 Yes [id number] 1{each} Insert 1 Univers 0.12-0.015 2-09 Each into ity of mg/24 hr 00:00: vagina [place] vaginal 00 once every Medica l insert month. Branch Insert vaginally and leave in place for 3 consecutiv e weeks, then remove for 1 week. NUVARING 2020-11 Yes [id number] 1{each} Insert 1 Univers 0.12-0.015 2-09 Each into ity of mg/24 hr 00:00: vagina [place] vaginal 00 once every Medica l insert month. Branch Insert vaginally and leave in place for 3 consecutiv e weeks, then remove for 1 week. NUVARING 2020-11 Yes [id number] 1{each} Insert 1 Univers 0.12-0.015 2-09 Each into ity of mg/24 hr 00:00: vagina [place] vaginal 00 once every Medica l insert month. Branch Insert vaginally and leave in place for 3 consecutiv e weeks, then remove for 1 week. NUVARING 2020-11 Yes [id number] 1{each} Insert 1 Univers 0.12-0.015 2-09 Each into ity of mg/24 hr 00:00: vagina [place] vaginal 00 once every Medica l insert month. Branch Insert vaginally and leave in place for 3 consecutiv e weeks, then remove for 1 week. NUVARING 2020-11 Yes [id number] 1{each} Insert 1 Univers 0.12-0.015 2-09 Each into ity of mg/24 hr 00:00: vagina [place] vaginal 00 once every Medica l insert month. Branch Insert vaginally and leave in place for 3 consecutiv e weeks, then remove for 1 week. triamcinolo 2020-11 Yes [employer] shields 1-05 ity of acetonide 00:00: [place] 0.1 % 00 Medical ointment Jennifer [facility] 2020-11 Yes Univer s ne 1-05 ity of acetonide 00:00: [place] 0.1 % 00 Medical ointment Branch [facility] 2020-11 Yes Univer s ne 1-05 ity of acetonide 00:00: [place] 0.1 % 00 Medical ointment [facility] 2020-11 Yes Univer s ne 1-05 ity of acetonide 00:00: [place] 0.1 % 00 Medical ointment Branch [facility] 2020-11 Yes Univer s ne 1-05 ity of acetonide 00:00: [place] 0.1 % 00 Medical ointment Branch [facility] 2020-11 Yes Univer s ne 1-05 ity of acetonide 00:00: [place] 0.1 % 00 Medical ointment [facility] 2020-11 Yes Univer s ne 1-05 ity of acetonide 00:00: [place] 0.1 % 00 Medical ointment [facility] 2020-11 Yes Univer s ne 1-05 ity of acetonide 00:00: [place] 0.1 % 00 Medical ointment [facility] 2020-11 Yes Univer s ne 1-05 ity of acetonide 00:00: [place] 0.1 % 00 Medical ointment [facility] 2020-11 Yes Univer s ne 1-05 ity of acetonide 00:00: [place] 0.1 % 00 Medical ntment Branch Immunizations Ordered Filled Immunization Date Status Comments [facility] e Immunization Name Name Hep B, Adol or Pedi 2000-12-31 Completed Unive rsity of Dosage 00:00:00 [place] [facility] Hep B, Adol or Pedi 2000-12-31 Completed Unive rsity of Dosage 00:00:00 [place] [facility] Hep B, Adol or Pedi 2000-12-31 Completed Unive rsity of Dosage 00:00:00 [place] [facility] Hep B, Adol or Pedi 2000-12-31 Completed Unive rsity of Dosage 00:00:00 [place] [facility] Hep B, Adol or Pedi 2000-12-31 Completed Unive rsity of Dosage 00:00:00 [place] [facility] Hep B, Adol or Pedi 2000-12-31 Completed Unive rsity of Dosage 00:00:00 [place] [facility] Hep B, Adol or Pedi 2000-12-31 Completed Unive rsity of Dosage 00:00:00 [place] [facility] Hep B, Adol or Pedi 2000-12-31 Completed Unive rsity of Dosage 00:00:00 [place] [facility] Hep B, Adol or Pedi 2000-12-31 Completed Unive rsity of Dosage 00:00:00 [place] [facility] Hep B, Adol or Pedi 2000-12-31 Completed Unive rsity of Dosage 00:00:00 [place] [facility] HIB 4 Dose Schedule 1998-08-30 Completed Unive rsity of 00:00:00 [place] [facility] DTP 1998-08-30 Completed University of 00:00:00 [place] [facility] HIB 4 Dose Schedule 1998-08-30 Completed Unive rsity of 00:00:00 [place] [facility] DTP 1998-08-30 Completed University of 00:00:00 [place] [facility] HIB 4 Dose Schedule 1998-08-30 Completed Unive rsity of 00:00:00 [place] [facility] DTP 1998-08-30 Completed University of 00:00:00 [place] [facility] HIB 4 Dose Schedule 1998-08-30 Completed Unive rsity of 00:00:00 [place] [facility] DTP 1998-08-30 Completed University of 00:00:00 [place] [facility] HIB 4 Dose Schedule 1998-08-30 Completed Unive rsity of 00:00:00 [place] [facility] DTP 1998-08-30 Completed University of 00:00:00 [place] [facility] HIB 4 Dose Schedule 1998-08-30 Completed Unive rsity of 00:00:00 [place] [facility] DTP 1998-08-30 Completed University of 00:00:00 [place] [facility] HIB 4 Dose Schedule 1998-08-30 Completed Unive rsity of 00:00:00 [place] [facility] DTP 1998-08-30 Completed University of 00:00:00 [place] [facility] HIB 4 Dose Schedule 1998-08-30 Completed Unive rsity of 00:00:00 [place] [facility] DTP 1998-08-30 Completed University of 00:00:00 [place] [facility] HIB 4 Dose Schedule 1998-08-30 Completed Unive rsity of 00:00:00 [place] [facility] DTP 1998-08-30 Completed University of 00:00:00 [place] [facility] HIB 4 Dose Schedule 1998-08-30 Completed Unive rsity of 00:00:00 [facility] DTP 1998-08-30 Completed University of 00:00:00 [facility] Hep B, Adol or Pedi 1997-06-24 Completed Unive rsity of Dosage 00:00:00 [facility] Hep B, Adol or Pedi 1997-06-24 Completed Unive rsity of Dosage 00:00:00 [place] [facility] Hep B, Adol or Pedi 1997-06-24 Completed Unive rsity of Dosage 00:00:00 [place] [facility] Hep B, Adol or Pedi 1997-06-24 Completed Unive rsity of Dosage 00:00:00 [place] [facility] Hep B, Adol or Pedi 1997-06-24 Completed Unive rsity of Dosage 00:00:00 [place] [facility] Hep B, Adol or Pedi 1997-06-24 Completed Unive rsity of Dosage 00:00:00 [facility] Hep B, Adol or Pedi 1997-06-24 Completed Unive rsity of Dosage 00:00:00 [place] [facility] Hep B, Adol or Pedi 1997-06-24 Completed Unive rsity of Dosage 00:00:00 [facility] Hep B, Adol or Pedi 1997-06-24 Completed Unive rsity of Dosage 00:00:00 [facility] Hep B, Adol or Pedi 1997-06-24 Completed Unive rsity of Dosage 00:00:00 [facility] HIB 4 Dose Schedule 1997-06-21 Completed Unive rsity of 00:00:00 [facility] DTP 1997-06-21 Completed University of 00:00:00 [facility] Polio (IPV/OPV) 1997-06-21 Completed Universit y of 00:00:00 [facility] HIB 4 Dose Schedule 1997-06-21 Completed Unive rsity of 00:00:00 [facility] DTP 1997-06-21 Completed University of 00:00:00 [facility] Polio (IPV/OPV) 1997-06-21 Completed Universit y of 00:00:00 [facility] HIB 4 Dose Schedule 1997-06-21 Completed Unive rsity of 00:00:00 [facility] DTP 1997-06-21 Completed University of 00:00:00 [facility] Polio (IPV/OPV) 1997-06-21 Completed Universit y of 00:00:00 [place] [facility] HIB 4 Dose Schedule 1997-06-21 Completed Unive rsity of 00:00:00 [facility] DTP 1997-06-21 Completed University of 00:00:00 [facility] Polio (IPV/OPV) 1997-06-21 Completed Universit y of 00:00:00 [facility] HIB 4 Dose Schedule 1997-06-21 Completed Unive rsity of 00:00:00 [facility] DTP 1997-06-21 Completed University of 00:00:00 [place] [facility] Polio (IPV/OPV) 1997-06-21 Completed Universit y of 00:00:00 [facility] HIB 4 Dose Schedule 1997-06-21 Completed Unive rsity of 00:00:00 [facility] DTP 1997-06-21 Completed University of 00:00:00 [facility] Polio (IPV/OPV) 1997-06-21 Completed Universit y of 00:00:00 [facility] HIB 4 Dose Schedule 1997-06-21 Completed Unive rsity of 00:00:00 [facility] DTP 1997-06-21 Completed University of 00:00:00 [facility] Polio (IPV/OPV) 1997-06-21 Completed Universit y of 00:00:00 [facility] HIB 4 Dose Schedule 1997-06-21 Completed Unive rsity of 00:00:00 [facility] DTP 1997-06-21 Completed University of 00:00:00 [facility] Polio (IPV/OPV) 1997-06-21 Completed Universit y of 00:00:00 [facility] HIB 4 Dose Schedule 1997-06-21 Completed Unive rsity of 00:00:00 [facility] DTP 1997-06-21 Completed University of 00:00:00 [facility] Polio (IPV/OPV) 1997-06-21 Completed Universit y of 00:00:00 [facility] HIB 4 Dose Schedule 1997-06-21 Completed Unive rsity of 00:00:00 [facility] DTP 1997-06-21 Completed University of 00:00:00 [facility] Polio (IPV/OPV) 1997-06-21 Completed Universit y of 00:00:00 [facility] HIB 4 Dose Schedule 1997-03-15 Completed Unive rsity of 00:00:00 [place] [facility] DTP 1997-03-15 Completed University of 00:00:00 [place] [facility] MMR 1997-03-15 Completed University of 00:00:00 [place] [facility] Polio (IPV/OPV) 1997-03-15 Completed Universit y of 00:00:00 [place] [facility] HIB 4 Dose Schedule 1997-03-15 Completed Unive rsity of 00:00:00 [place] [facility] DTP 1997-03-15 Completed University of 00:00:00 [place] [facility] MMR 1997-03-15 Completed University of 00:00:00 [place] [facility] Polio (IPV/OPV) 1997-03-15 Completed Universit y of 00:00:00 [facility] HIB 4 Dose Schedule 1997-03-15 Completed Unive rsity of 00:00:00 [place] [facility] DTP 1997-03-15 Completed University of 00:00:00 [place] [facility] MMR 1997-03-15 Completed University of 00:00:00 [place] [facility] Polio (IPV/OPV) 1997-03-15 Completed Universit y of 00:00:00 [facility] HIB 4 Dose Schedule 1997-03-15 Completed Unive rsity of 00:00:00 [facility] DTP 1997-03-15 Completed University of 00:00:00 [place] [facility] MMR 1997-03-15 Completed University of 00:00:00 [place] [facility] Polio (IPV/OPV) 1997-03-15 Completed Universit y of 00:00:00 [facility] HIB 4 Dose Schedule 1997-03-15 Completed Unive rsity of 00:00:00 [place] [facility] DTP 1997-03-15 Completed University of 00:00:00 [place] [facility] MMR 1997-03-15 Completed University of 00:00:00 [place] [facility] Polio (IPV/OPV) 1997-03-15 Completed Universit y of 00:00:00 [place] [facility] HIB 4 Dose Schedule 1997-03-15 Completed Unive rsity of 00:00:00 [place] [facility] DTP 1997-03-15 Completed University of 00:00:00 [place] [facility] MMR 1997-03-15 Completed University of 00:00:00 [place] [facility] Polio (IPV/OPV) 1997-03-15 Completed Universit y of 00:00:00 [place] [facility] HIB 4 Dose Schedule 1997-03-15 Completed Unive rsity of 00:00:00 [place] [facility] DTP 1997-03-15 Completed University of 00:00:00 [place] [facility] MMR 1997-03-15 Completed University of 00:00:00 [place] [facility] Polio (IPV/OPV) 1997-03-15 Completed Universit y of 00:00:00 [facility] HIB 4 Dose Schedule 1997-03-15 Completed Unive rsity of 00:00:00 [place] [facility] DTP 1997-03-15 Completed University of 00:00:00 [place] [facility] MMR 1997-03-15 Completed University of 00:00:00 [place] [facility] Polio (IPV/OPV) 1997-03-15 Completed Universit y of 00:00:00 [facility] HIB 4 Dose Schedule 1997-03-15 Completed Unive rsity of 00:00:00 [place] [facility] DTP 1997-03-15 Completed University of 00:00:00 [place] [facility] MMR 1997-03-15 Completed University of 00:00:00 [place] [facility] Polio (IPV/OPV) 1997-03-15 Completed Universit y of 00:00:00 [facility] HIB 4 Dose Schedule 1997-03-15 Completed Unive rsity of 00:00:00 [place] [facility] DTP 1997-03-15 Completed University of 00:00:00 [place] [facility] MMR 1997-03-15 Completed University of 00:00:00 [place] [facility] Polio (IPV/OPV) 1997-03-15 Completed Universit y of 00:00:00 [facility] Hep B, Adol or Pedi 1996-10-03 Completed Unive rsity of Dosage 00:00:00 [place] [facility] Hep B, Adol or Pedi 1996-10-03 Completed Unive rsity of Dosage 00:00:00 [place] [facility] Hep B, Adol or Pedi 1996-10-03 Completed Unive rsity of Dosage 00:00:00 [place] [facility] Hep B, Adol or Pedi 1996-10-03 Completed Unive rsity of Dosage 00:00:00 [place] [facility] Hep B, Adol or Pedi 1996-10-03 Completed Unive rsity of Dosage 00:00:00 [place] [facility] Hep B, Adol or Pedi 1996-10-03 Completed Unive rsity of Dosage 00:00:00 [place] [facility] Hep B, Adol or Pedi 1996-10-03 Completed Unive rsity of Dosage 00:00:00 [facility] Hep B, Adol or Pedi 1996-10-03 Completed Unive rsity of Dosage 00:00:00 [place] [facility] Hep B, Adol or Pedi 1996-10-03 Completed Unive rsity of Dosage 00:00:00 [facility] Hep B, Adol or Pedi 1996-10-03 Completed Unive rsity of Dosage 00:00:00 [facility] HIB 4 Dose Schedule 1996-03-03 Completed Unive rsity of 00:00:00 [facility] DTP 1996-03-03 Completed University of 00:00:00 [facility] Polio (IPV/OPV) 1996-03-03 Completed Universit y of 00:00:00 [facility] HIB 4 Dose Schedule 1996-03-03 Completed Unive rsity of 00:00:00 [facility] DTP 1996-03-03 Completed University of 00:00:00 [facility] Polio (IPV/OPV) 1996-03-03 Completed Universit y of 00:00:00 [facility] HIB 4 Dose Schedule 1996-03-03 Completed Unive rsity of 00:00:00 [facility] DTP 1996-03-03 Completed University of 00:00:00 [facility] Polio (IPV/OPV) 1996-03-03 Completed Universit y of 00:00:00 [facility] HIB 4 Dose Schedule 1996-03-03 Completed Unive rsity of 00:00:00 [facility] DTP 1996-03-03 Completed University of 00:00:00 [facility] Polio (IPV/OPV) 1996-03-03 Completed Universit y of 00:00:00 [facility] HIB 4 Dose Schedule 1996-03-03 Completed Unive rsity of 00:00:00 [place] [facility] DTP 1996-03-03 Completed University of 00:00:00 [facility] Polio (IPV/OPV) 1996-03-03 Completed Universit y of 00:00:00 [facility] HIB 4 Dose Schedule 1996-03-03 Completed Unive rsity of 00:00:00 [facility] DTP 1996-03-03 Completed University of 00:00:00 [facility] Polio (IPV/OPV) 1996-03-03 Completed Universit y of 00:00:00 [facility] HIB 4 Dose Schedule 1996-03-03 Completed Unive rsity of 00:00:00 [facility] DTP 1996-03-03 Completed University of 00:00:00 [facility] Polio (IPV/OPV) 1996-03-03 Completed Universit y of 00:00:00 [facility] HIB 4 Dose Schedule 1996-03-03 Completed Unive rsity of 00:00:00 [facility] DTP 1996-03-03 Completed University of 00:00:00 [facility] Polio (IPV/OPV) 1996-03-03 Completed Universit y of 00:00:00 [facility] HIB 4 Dose Schedule 1996-03-03 Completed Unive rsity of 00:00:00 [facility] DTP 1996-03-03 Completed University of 00:00:00 [facility] Polio (IPV/OPV) 1996-03-03 Completed Universit y of 00:00:00 [facility] HIB 4 Dose Schedule 1996-03-03 Completed Unive rsity of 00:00:00 [facility] DTP 1996-03-03 Completed University of 00:00:00 [facility] Polio (IPV/OPV) 1996-03-03 Completed Universit y of 00:00:00 [facility] Vital Signs Vital Name Observation Time Observation Value Comments Source Systolic blood 2022-10-02 16:12:00 126 mm[Hg] Univer sity of pressure [facility] Diastolic blood 2022-10-02 16:12:00 86 mm[Hg] Unive rsity of pressure [facility] Heart rate 2022-10-02 16:12:00 103 /min [facility] Respiratory rate 2022-10-02 16:12:00 18 /min Univ ersity of [facility] Body height 2022-10-02 16:12:[address] [facility] Body weight 2022-10-02 16:12:[address] [facility] BMI 2022-10-02 16:12:00 24.77 kg/m2 [facility] Oxygen saturation in 2022-10-02 16:12:00 99 /min [facility] Arterial blood by [facility] Pulse oximetry Branch Systolic blood 2022-06-10 17:40:00 141 mm[Hg] Univer sity of pressure [facility] Diastolic blood 2022-06-10 17:40:00 85 mm[Hg] Unive rsity of pressure [facility] Heart rate 2022-06-10 17:40:00 98 /min [facility] [place] Body temperature 2022-06-10 17:40:00 37.89 Lisa Univ [facility] [place] Respiratory rate 2022-06-10 17:40:00 18 /min Univ [facility] [place] Body weight 2022-06-10 17:40:00 60.782 kg [facility] [place] BMI 2022-06-10 17:40:00 24.51 kg/m2 [facility] [place] Oxygen saturation in 2022-06-10 17:40:00 99 /min University of Arterial blood by [facility] Pulse oximetry Branch Systolic blood 2022-04-01 15:28:00 128 mm[Hg] Univer sity of pressure [facility] [place] Diastolic blood 2022-04-01 15:28:00 95 mm[Hg] Unive rsity of pressure [facility] [place] Heart rate 2022-04-01 15:28:00 99 /min [facility] [place] Body temperature 2022-04-01 15:28:00 36.83 Lisa [facility] [place] Respiratory rate 2022-04-01 15:28:00 18 /min Univ ers[facility] [place] Body height 2022-04-01 15:28:00 157.5 cm [facility] [place] Body weight 2022-04-01 15:28:00 64.411 kg [facility] [place] BMI 2022-04-01 15:28:00 25.97 kg/m2 [facility] [place] Oxygen saturation in 2022-04-01 15:28:00 99 /min University of Arterial blood by [facility] Pulse oximetry Branch Procedures Procedure Date / Time Performed Performing Clinician Sourc e URINE CULTURE 2022-10-02 16:28:00 Mani Theodore [facility] GALV ONLY - VAGINAL 2022-10-02 16:25:00 Mani Theodore [facility] PATHOGENS BY [facility] [employer] [facility] POCT TEST 2022-10-02 16:01:00 Mani Theodore [facility] POCT URINALYSIS 2022-10-02 16:00:00 Mani Theodore [facility] RAPID STREP SCREEN FOR 2022-06-10 17:43:00 Bonilla [facility] GROUP A Medical Branch RAPID INFLUENZA A/B 2022-06-10 17:43:00 [facility] (ID NOW RAPID 2022-06-10 17:43:00 Bonilla [facility] TESTING) Medical Branch CONSENT/REFUSAL FOR 2022-06-10 17:36:51 Doctor Unassigned, No [facility] [place] DIAGNOSIS AND Name Medical [facility] TREATMENT NOTICE OF PRIVACY 2022-04-01 15:24:13 Doctor Unassigned, No Univ [facility] [place] PRACTICES Name Medical [facility] CONSENT/REFUSAL FOR 2022-04-01 15:24:01 Doctor Unassigned, No [facility] [place] DIAGNOSIS AND Name Medical Branch TREATMENT Encounters Start End Encounter Admission Attending Care Care Encounter Source Date/Time Date/Time Type Type Clinicians Facility Department ID 2021-09-29 Outpatient X [facility] LISA [id number] Univers 04:02:01 ity of [facility] 2021-09-29 Emergency [facility] [id number] Univers 04:01:15 ity [facility] 2021-09-27 Emergency [facility] [id number] Univers 13:44:52 ity of [facility] 2022-10-12 2022-10-12 Patient Ez [facility] 1.2.840.114 [id number] Univers 00:00:00 00:00:00 Secure Msg Mani Munch[place]way 350.1.13.10 ity of [place] 4.2.7.2.686 [facility] [phone] [facility] PRIMARY & [address] Branch SPECIALTY CARE 2022-10-05 2022-10-05 Telephone Provider, [facility] 1.2.840.114 [id number] Univers 00:00:00 00:00:00 [facility] HEALTH 350.1.13.10 it y of Urgent Care [place] 4.2.7.2.686 [place] CALEB?BLEA [phone] Nh nicolle BATES [address] [facility] OFFICE [facility] 2022-10-02 2022-10-02 [employer] Lab, Ang - Db [facility] 1.2.840.1 [id number] Univers 12:15:00 12:30:00 Visit Mani Theodore [facility] 350.1.13.10 ity of [place] 4.2.7.2.686 Abdon as CALEB?BLEA [phone] Nh nicolle BATES [address] [facility] OFFICE [facility] 2022-10-02 2022-10-02 [facility] 1.2.840. 114 [id number] Univers 10:20:00 11:49:18 Care Unknown, Attending [facility] 350..13.10 ity of [place] 4.2.7.2.686 Abdon as CALEB?BLEA [id number] Nh myles[address] 2022-10-02 2022-10-[address] [facility] [id number] Univers 10:20:00 11:49:18 MANI itraquel o f [facility] 2022-06-10 2022-06-10 Emergency X SANDHIR, [facility] ERT [id number] Univers 12:45:00 13:31:00 AMBALLY [facility] 2022-06-10 2022-06-10 Emergency [facility] 1.2.840.114 [id number] Univers 12:45:00 13:31:00 Loreneally [place] 350..13.10 i ty of [place] 4.2.7.2.686 [facility] [id number] [place] 715634 [place] 2022-04-01 2022-04-01 Emergency X KO, [facility] ERT [id number] Univers 10:28:00 12:01:00 KIM bull [facility] 2022-04-01 2022-04-01 [facility] 1.2.840.114 [id number] Univers 10:28:00 12:01:00 Kim LOPEZSAQIB 350.1.13.10 i ty of [place] 4.2.7.2.686 [facility] [id number] [place] 715634 [place] 2022-04-01 2022-04-01 Orders Doctor ANTONINO 1.2.840.114 [id number] Univers 00:00:00 00:00:00 Only Unassigned, WALTER 350.1.13.10 ity of [place] [facility] 4.2.7.2.686 Abdon as [phone] [facility] 009 [place] 2022-03-14 2022-03-14 Stephane Solomon [facility] 1.2.840.114 [id number] Univers 00:00:00 00:00:00 Luly R DATA WAREHOUSE MANAGER 350.1.13.10 ity of [facility] 4.2.7.2.686 Abdon as MATERNAL [id number] [facility] ical & CHILD [address] [place] [address] 2022-03-14 2022-03-14 Stephane Nesbitt [facility] 1.2.114.817 [id number] Univers 00:00:00 00:00:00 Naman Drummond DATA WAREHOUSE MANAGER 350.1.13.10 it y of [facility] 4.2.7.2.686 Abdon as MATERNAL [phone] [facility] ical & CHILD [address] [place] [address] 2022-02-23 2022-02-23 Urgent Mani Theodore [facility] 1.2.840. 114 [id number] Univers 14:20:00 14:20:00 [facility] 350.1.13.10 ity [facility] 4.2.7.2.686 Abdon as CALEB?BLEA [id number] N[address] myles[address] MEDICAL OFFICE BUILDING 2022-02-23 2022-02-23 Outpatient R EZ [facility] [id number] Univers 14:20:00 14:19:09 MANI martinez [facility] 2022-01-21 2022-01-21 Outpatient R NEHA [facility] [id number] Univers 14:15:00 14:15:00 LULY bull o dina [facility] 2022-01-15 2022-01-15 Outpatient R [facility] [id number] Univers 18:20:00 18:20:00 ity of [facility] 2022-01-15 2022-01-15 Outpatient R CAIT [facility] [id number] Univers 10:40:00 11:10:35 HENRIETTA ity [facility] 2022-01-15 2022-01-15 Urgent Henrietta Chavira [facility] 1.2.840.114 [id number] Univers 10:40:00 11:10:35 Care Nghiaiamicaela, [facility] 350.1.13.10 ity of [place] 4.2.7.2.686 Abdon as CALEB?BLEA [id number] [address] MEDICAL OFFICE [facility] 2022-01-15 2022-01-15 Patient Nurse, Yimi [facility] 1.2.840.114 [id number] Univers 00:00:00 00:00:00 Secure Msg Db [facility] 350.1.13.10 ity of Care [place] 4.2.7.2.686 Abdon as CALEB?BLEA [id number] [address] MEDICAL OFFICE [facility] 2022-01-01 2022-01-01 Orders Doctor ANTONINO 1.2.840.114 [id number] Univers 00:00:00 00:00:00 Only Unassigned, WALTER 350.1.13.10 ity of [place] [facility] 4.2.7.2.686 Abdon as [id number] [address] 2021-12-24 2021-12-24 Outpatient R FINA [facility] [id number] Univers 14:00:00 14:00:00 MANDIE ity [facility] 2021-12-05 2021-12-05 Outpatient R ALEX [facility] [id number] Univers 09:00:00 09:00:00 PERCY ity [facility] 2021-12-01 2021-12-01 Outpatient R KIMANI [facility] [id number] Univers 10:45:00 10:45:00 SALEEM vivar f [facility] 2021-11-06 2021-11-06 Office [facility] 1.2.233.338 [id number] Univers 13:06:59 13:41:41 Visit Naman Drummond DATA WAREHOUSE MANAGER 350.1.13.10 it y of [facility] 4.2.7.2.686 Abdon as MATERNAL [id number] [facility] ical & CHILD [address] [place] [address] 2021-11-06 2021-11-06 Outpatient R LAZ [facility] [id number] Univers 13:00:00 13:41:41 NAMAN bull [facility] 2021-11-06 2021-11-06 Outpatient R LAZ [facility] [id number] Univers 13:00:00 13:41:41 NAMAN bull [facility] 2021-11-06 2021-11-06 Orders Doctor ANTONINO 1.2.840.114 [id number] Univers 00:00:00 00:00:00 Only Unassigned, WALTER 350.1.13.10 ity of [facility] 4.2.7.2.686 Abdon as [id number] [address] 2021-10-31 2021-10-31 Telephone Neha ILLIZZY 1.2.335.619 [id number] Univers 00:00:00 00:00:00 Luly Ledezma DATA WAREHOUSE MANAGER 350.1.13.10 ity of [facility] 4.2.7.2.686 Abdon as MATERNAL [phone] [facility] & CHILD [address] [place] [address] 2021-10-28 2021-10-28 Outpatient Darien NESBITT [facility] [id number] Univers 13:30:00 13:30:00 NAMAN bull [facility] 2021-07-28 2021-07-28 Office Neha ILLIZZY 1.2.840.114 [id number] Univers 13:18:34 13:46:54 Visit Luly Ledezma DATA WAREHOUSE MANAGER 350.1.13.10 ity [facility] 4.2.7.2.686 Abdon as MATERNAL [phone] [facility] CHILD [address] [place] [address] 2021-07-28 2021-07-28 Outpatient R NEHA [facility] [id number] Univers 13:30:00 13:30:00 LULY bull o f [facility] 2021-07-14 2021-07-14 Office Neha [facility] 1.2.840.114 [id number] Univers 15:54:42 16:51:52 Visit Luly R DATA WAREHOUSE MANAGER 350.1.13.10 ity of [facility] 4.2.7.2.686 Abdon as MATERNAL [phone] [facility] & [address] 2021-07-14 2021-07-14 Outpatient [facility] [id number] Univers 15:45:00 15:45:00 ADRYANA jorgito o [facility] 2021-06-24 2021-06-24 Routine [facility] 1.2.184.341 [id number] Univers 11:07:59 11:42:13 Saleem C DATA WAREHOUSE MANAGER 350.1.13.10 ity of Visit [facility] 4.2.7.2.686 Abdon as MATERNAL [phone] [address] 2021-06-24 2021-06-24 [facility] [id number] Univers 11:00:00 11:00:00 SALEEMCJ bull o [facility] 2021-06-04 2021-06-04 [facility] [id number] Univers 13:45:00 13:45:00 LULY bull o [facility] 2021-06-02 2021-06-02 Telephone [facility] 1.2.477.275 [id number] Univers 00:00:00 00:00:00 Adryana R DATA WAREHOUSE MANAGER 350.1.13.10 ity of [facility] 4.2.7.2.686 Abdon as MATERNAL [phone] [address] 2021-06-02 2021-06-02 Orders Doctor ANTONINO 1.2.840.114 [id number] Univers 00:00:00 00:00:00 Only Unassigned, WALTER 350.1.13.10 ity of [place] [facility] 4.2.7.2.686 Abdon as [id number] [address] 2021-05-29 2021-05-29 Telephone [facility] 1.2.283.423 [id number] Univers 00:00:00 00:00:00 Rosnda R DATA WAREHOUSE MANAGER 350.1.13.10 ity of [facility] 4.2.7.2.686 Abdon as MATERNAL [id number] [facility] & [address] 2021-05-28 2021-05-28 Routine Neha [facility] 1.2.840.114 [id number] Univers 13:45:13 14:53:41 Roshunda R DATA WAREHOUSE MANAGER 350.1.13.10 ity of Visit [facility] 4.2.7.2.686 Abdon as MATERNAL [phone] [address] 2021-05-28 2021-05-28 Outpatient R NEHA [facility] [id number] Univers 13:45:00 13:45:00 ROSHUNDA ity o f [facility] 2021-05-23 2021-05-23 Outpatient X COLUMBA GRAY [facility] LISA [id number] Univers 18:31:00 23:25:00 ity of [facility] 2021-05-23 2021-05-23 Emergency Columba Gray [facility] 1.2.840.114 [id number] Univers 18:31:00 23:25:00 [place] 350.1.13.10 i ty [facility] 4.2.7.2.686 [facility] [phone] [facility] 083 [place] 2021-05-23 2021-05-23 Nurse Holly Marshall 1.2.840.114 [id number] Univers 00:00:00 00:00:00 Triage WALTER 350.1.13.10 it y of [facility] 4.2.7.2.686 Abdon as [phone] [facility] 019 [place] 2021-05-14 2021-05-14 Routine [facility] 1.2.840.114 [id number] Univers 14:59:44 16:04:45 Roshunda R DATA WAREHOUSE MANAGER 350.1.13.10 ity of Visit [facility] 4.2.7.2.686 Abdon as MATERNAL [id number] [facility] & CHILD [address] [place] [address] 2021-05-14 2021-05-14 Outpatient R NEHA [facility] [id number] Univers 15:00:00 15:00:00 LULY bull o dina [facility] 2021-05-12 2021-05-12 Outpatient Darien SOLOMON [facility] [id number] Univers 15:45:00 15:45:00 LULY bull o dina [facility] 2021-05-09 2021-05-09 Outpatient Darien SOLOMON [facility] [id number] Univers 10:00:00 10:00:00 LULY martinez [facility] 2021-05-08 2021-05-08 Outpatient Darien SOLOMON [facility] [id number] Univers 08:15:00 08:15:00 LULY martinez [facility] 2021-04-22 2021-04-22 Routine [facility] 1.2.840.114 [id number] Univers 11:07:35 11:42:55 Rosyolandenda R DATA WAREHOUSE MANAGER 350.1.13.10 ity of Visit [facility] 4.2.7.2.686 Abdon as MATERNAL [phone] [facility] [address] [place] [address] 2021-04-22 2021-04-22 Outpatient Darien SOLOMON [facility] [id number] Univers 11:00:00 11:00:00 LULY martinez [facility] 2021-04-08 2021-04-08 Circuit Breaker 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 Ultrasound, [facility] 1.2 .840.114 [id number] Univers 13:50:09 14:31:10 Visit Adryan Solomonjacobo R DATA WAREHOUSE MANAGER 350.1.13.10 ity of Subhash Mann [facility] 4.2.7.2.686 [place] MATERNAL [phone] [facility] ical & CHILD [address] [place] [address] 2021-04-08 2021-04-08 Routine Neha [facility] 1.2.840.114 [id number] Univers 12:46:36 13:35:54 Roshunda R DATA WAREHOUSE MANAGER 350.1.13.10 ity of Visit [facility] 4.2.7.2.686 Abdon as MATERNAL [phone] [facility] ical & CHILD [address] [place] [address] 2021-04-08 2021-04-08 Outpatient [facility] [id number] Univers 12:45:00 12:45:00 ROSYOLANDENDA ity o f [facility] 2021-04-08 2021-04-08 Abstract [facility] 1.2.840.114 [id number] Univers 00:00:00 00:00:00 Rosyolandenda R DATA WAREHOUSE MANAGER 350.1.13.10 ity of REGIONAL 4.2.7.2.686 Abdon as MATERNAL [phone] [facility] [address] [place] [address] 2021-03-26 2021-03-26 Telephone [facility] 1.2.989.129 [id number] Univers 00:00:00 00:00:00 Rosyolandenda R DATA WAREHOUSE MANAGER 350.1.13.10 ity of REGIONAL 4.2.7.2.686 Abdon as MATERNAL [phone] [facility] & [address] 2021-03-25 2021-03-25 Routine [facility] 1.2.840.114 [id number] Univers 09:36:46 10:02:40 Rosyolandenda R DATA WAREHOUSE MANAGER 350.1.13.10 ity of Visit REGIONAL 4.2.7.2.686 Abdon as MATERNAL [phone] [facility] & [address] 2021-03-25 2021-03-25 Outpatient Darien SOLOMON [facility] [id number] Univers 09:45:00 09:45:00 ALVARADONDA jorgito o f [facility] 2021-02-14 2021-02-14 Letter Kimani [facility] 1.2.154.390 [id number] Univers 00:00:00 00:00:00 (Out) Saleem C DATA WAREHOUSE MANAGER 350.1.13.10 ity of REGIONAL 4.2.7.2.686 Abdon as MATERNAL [phone] [facility] & [address] 2021-01-23 2021-01-23 Outpatient P [facility] [id number] Univers 13:00:00 13:00:00 ity of [facility] 2021-01-15 2021-01-15 Outpatient R SOLOMON, [facility] [id number] Univers 11:00:00 11:00:00 LULY bull o f [facility] 2020-12-30 2020-12-30 Telephone Neha [facility] 1.2.332.542 [id number] Univers 00:00:00 00:00:00 Luly R DATA WAREHOUSE MANAGER 350.1.13.10 ity of REGIONAL 4.2.7.2.686 Abdon as MATERNAL [phone] [facility] ical & CHILD [address] [place] [address] 2020-12-20 2020-12-20 Routine [facility] 1.2.840.114 [id number] Univers 10:58:41 11:32:26 Luly R DATA WAREHOUSE MANAGER 350.1.13.10 ity of Visit [facility] 4.2.7.2.686 Abdon as MATERNAL [phone] [facility] & [address] 2020-12-20 2020-12-20 Outpatient R [facility] [id number] Univers 11:00:00 11:00:00 LULY bull o dina [facility] 2020-12-06 2020-12-06 Abstract [facility] 1.2.840.114 [id number] Univers 00:00:00 00:00:00 Luly R DATA WAREHOUSE MANAGER 350.1.13.10 ity of [facility] 4.2.7.2.686 Abdon as MATERNAL [phone] [facility] & [address] 2020-11-26 2020 Emergency Laz [facility] 1.2.840.114 [id number] Univers 23:42:00 03:48:00 Yolanda Bowser 350.1.13.10 ity of [place] 4.2.7.2.686 [place] [id number] [address] 2020-11-20 2020-11-20 Circuit Breaker Assembler Ultrasound, [facility] 1.2 .840.114 [id number] Univers 11:48:27 12:18:27 Visit David Flanagan R DATA WAREHOUSE MANAGER 350.1.13.10 ity of REGIONAL 4.2.7.2.686 Abdon as MATERNAL [phone] Med ical & CHILD [address] [facility] 2020-11-20 2020-11-20 Routine [facility] 1.2.840.114 [id number] Univers 11:33:37 11:48:12 Roshunda R DATA WAREHOUSE MANAGER 350.1.13.10 ity of Visit [facility] 4.2.7.2.686 Abdon as MATERNAL [phone] [facility] ical & CHILD [address] [place] [address] 2020-11-20 2020-11-20 Outpatient R [facility] [id number] Univers 10:45:00 10:45:00 ROSYOLANDENDA itraquel o f [facility] 2020-11-20 2020-11-20 Abstract [facility] 1.2.840.114 [id number] Univers 00:00:00 00:00:00 Rosyolandenda R DATA WAREHOUSE MANAGER 350.1.13.10 ity of [facility] 4.2.7.2.686 Abdon as MATERNAL [phone] [facility] [address] [place] [address] 2020-10-23 2020-10-23 Initial [facility] 1.2.840.114 [id number] Univers 13:02:10 14:12:37 Roshunda R DATA WAREHOUSE MANAGER 350.1.13.10 ity of Visit [facility] 4.2.7.2.686 Abdon as MATERNAL [phone] [facility] & CHILD [address] [place] [address] 2020-10-23 2020-10-23 Outpatient R [facility] [id number] Univers 12:45:00 12:45:00 ROSHUNDA ity o f [facility] 2020-10-23 2020-10-23 Orders Doctor ANTONINO 1.2.840.114 [id number] Univers 00:00:00 00:00:00 Only Unassigned, WALTER 350.1.13.10 [place] 4.2.7.2.686 Abdon as [phone] [address] Results Test Description Test Time Test Comments Results Result Comments Source POCT TEST 2022-10-02 16:01:00 Test Item Value Reference Range Interpretation Comme nts POCT PREG (test code = 1605) Negative On board controls acceptable with C Yes Line (test code = 3574) POCT PREG LOT # (test code = 3575) POCT PREG TEST DATE (test code = 3576) MARCO (test code = MARCO) accurate development and interpretation of all internal controls [facility] [id number] 16:01:00 Test Item Value Reference Range Interpretation Comments POCT PREG (test code Negative = 1605) On board controls Yes acceptable with C Line (test code = 3574) POCT PREG LOT # (test code = 3575) POCT PREG TEST DATE (test code = 3576) MARCO (test code = MARCO) accurate development and interpretation of all internal controls [facility] URINALYSIS W SPECIFIC [id number] 16:00:00 Test Item Value Reference Range Interpretation Comments POCT U SP GRAV 1.005 mg/dl 1.005-1.025 (test code = 3255) POCT PH U (test 5.0 mg/dl 5-8 code = 3254) POCT U LEUK EST 1+ Negative - Negative (test code = 3263) POCT U NIT (test negative Negative - Negative code = 3262) POCT U PROT (test negative Negative - Negative code = 3259) POCT U GLU (test normal Negative - Negative code = 3256) POCT U KETONE negative Negative - Negative (test code = 3258) POCT U UROBILI normal 0.2-1 (test code = 3260) POCT U BILI (test negative Negative - Negative code = 3261) POCT U BLD (test about 50 Negative - Negative code = 3257) POCT U COLOR (test light yellow code = 3266) POCT U APPEAR clear (test code = 3267) MARCO (test code = accurate development and MARCO) interpretation of all internal controls [facility] URINALYSIS W SPECIFIC [id number] 16:00:00 Test Item Value Reference Range Interpretation Comments POCT U SP GRAV 1.005 mg/dl 1.005-1.025 (test code = 3255) POCT PH U (test 5.0 mg/dl 5-8 code = 3254) POCT U LEUK EST 1+ Negative - Negative (test code = 3263) POCT U NIT (test negative Negative - Negative code = 3262) POCT U PROT (test negative Negative - Negative code = 3259) POCT U GLU (test normal Negative - Negative code = 3256) POCT U KETONE negative Negative - Negative (test code = 3258) POCT U UROBILI normal 0.2-1 (test code = 3260) POCT U BILI (test negative Negative - Negative code = 3261) POCT U BLD (test about 50 Negative - Negative code = 3257) POCT U COLOR (test light yellow code = 3266) POCT U APPEAR clear (test code = 3267) MARCO (test code = accurate development and MARCO) interpretation of all internal controls [facility]
[2022-12-07] MEDS ORDERED: NA CHLORIDE 0.9% 500 ML ONE (09:35)
[2022-12-07 10:36] LABS: SARS-COV-2 RT PCR NEGATIVE (NEGATIVE)
--- NOTE | 2022-12-07 10:39 | EDPHYS ---
Physician Documentation [facility] Name: Nicole Wolff Age: 27 yrs Sex: Female : 1995 Arrival Date: 12/07/2022 Time: 09:02 Bed 9 Private MD: ED Physician Vinh Mccray HPI: 12/07 09:11 This 27 yrs old Black Female presents to ER via Ambulatory with complaints of Sore en Throat, Cough. 09:11 27-year-old female presents to ED with 2 days of cough, congestion, subjective fever, en body aches and malaise with sore throat and painful swallowing. She reports decreased but adequate p.o. intake without nausea or vomiting. Normal urine output. 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 - Social history:: Smoking status: Patient denies any tobacco usage or history of. ROS: 09:11 Constitutional: Subjective fever, chills, malaise and body aches en 09:11 ENT: Positive for sore throat. 09:11 Respiratory: Positive for cough, Negative for dyspnea on exertion, shortness of breath, wheezing. 09:11 Abdomen/GI: Negative for nausea, vomiting, and diarrhea. Exam: 09:11 Constitutional: This is a well developed, well nourished patient who is awake, alert, en and in no acute distress. Head/Face: Normocephalic, atraumatic. Eyes: Pupils equal round and reactive to light, extra-ocular motions intact. Lids and lashes normal. Conjunctiva and sclera are non-icteric and not injected. Cornea within normal limits. Periorbital areas with no swelling, redness, or edema. ENT: Nares patent. No nasal discharge, no septal abnormalities noted. Tympanic membranes are normal and external auditory canals are clear. Oropharynx with mild pharyngeal erythema, no swelling, or masses, exudates, or evidence of obstruction, uvula midline. Mucous membranes moist. Chest/axilla: Normal chest wall appearance and motion. Nontender with no deformity. No lesions are appreciated. Cardiovascular: Regular rate and rhythm with a normal S1 and S2. No gallops, murmurs, or rubs. Normal PMI, no JVD. No pulse deficits. Respiratory: Lungs have equal breath sounds bilaterally, clear to auscultation and percussion. No rales, rhonchi or wheezes noted. No increased work of breathing, no retractions or nasal flaring. Abdomen/GI: Soft, non-tender, with normal bowel sounds. No distension or tympany. No guarding or rebound. No evidence of tenderness throughout. Vital Signs: 09:04 BP 125 / 72; Pulse 85; Resp 16; Temp 98.9; Pulse Ox 100% ; Weight 59.47 kg; Height 5 iw ft. 1 in. (154.94 cm); Pain 8/10; 10:34 BP 122 / 75; Pulse 80; Resp 16; Temp 98.6; Pulse Ox 100% ; jh5 09:04 Body Mass Index 24.77 (59.47 kg, 154.94 cm) iw MDM: 09:08 Patient medically screened. snw 09:11 Differential diagnosis: Allergic rhinitis, bronchitis, group A strep tonsillitis, en mononucleosis, chlamydia pharyngitis, neisseria gonorrheoeae pharangitis, Mycoplasma Pharyngitis pharyngitis, upper respiratory infection, viral syndrome. Data reviewed: vital signs, nurses notes. ED course: 27-year-old female with URI symptoms and sore throat. Vitals are stable, exam has mild pharyngeal erythema otherwise normal exam. Patient is requesting IV fluids for dehydration. Explained that she is not exhibiting clinical signs of dehydration; however, the patient would prefer to get a small amount of IV fluids prior to discharge. Will place IV and give 500 cc NS bolus x1.. No blood work required at this time. Will check for COVID, flu, strep with anticipation of discharge home. 10:38 ED course: Patient's COVID, flu, strep all negative. However, patient gets frequent en strep throat and feels this is developing strep throat. Will DC home with antibiotics to start if symptoms worsen or fever develops. ER return precautions reviewed. 12/07 09:10 Order name: COVID-19/FLU A+B; Complete Time: 10:37 en 12/07 09:10 Order name: Rapid Strep; Complete Time: 09:59 en 12/07 10:00 Order name: Throat Culture EDMS Administered Medications: 09:43 Drug: NS 0.9% 500 ml Route: IV; Rate: bolus; Site: left antecubital; jh5 Disposition Summary: 12/07/22 10:38 Discharge Ordered Location: Home en Problem: new en Symptoms: are unchanged en Condition: Stable en Diagnosis - Acute pharyngitis, unspecified en Followup: en - With: Private Physician - When: As needed - Reason: Re-evaluation by your physician Discharge Instructions: - Discharge Summary Sheet en - Pharyngitis en - Pharyngitis, [id number]-[id number] en Forms: - Medication Reconciliation Form en - Thank You Letter en - Antibiotic Education en - Prescription Opioid Use en Prescriptions: - Amoxicillin 500 mg Oral Capsule - take 1 capsule by ORAL route every 8 hours for 10 days; 30 tablet; Refills: 0, en Product Selection Permitted Signatures: Dispatcher [employer] EDAL Emperatriz Peck, KNOWLEDGE ANALYST-C KNOWLEDGE ANALYST-Csnw Luda Kincaid RN RN iw Rees, Jessica RN RN jh5 Aline Alexandre PA PA en Corrections: (The following items were deleted from the chart) 09:06 09:06 Home Meds: Vitamin Oral tab 1 tab once daily; jose ramon albright
--- NOTE | 2022-12-07 10:39 | ER ---
Nurse's Notes [facility] Name: Nicole Wolff Age: 27 yrs Sex: Female : 1995 Arrival Date: 12/07/2022 Time: 09:02 Bed 9 Private MD: Diagnosis: Acute pharyngitis, unspecified Presentation: 12/07 09:04 Chief complaint: Patient states: sore throat, chills,started over the weekend. iw Coronavirus screen: Client presents with at least one sign or symptom that may indicate coronavirus-19. Ebola Screen: Patient negative for fever greater than or equal to 101.5 degrees Fahrenheit, and additional compatible Ebola Virus Disease symptoms Patient denies exposure to infectious person. Patient denies travel to an Ebola-affected area in the 21 days before illness onset. No symptoms or risks identified at this time. Initial Sepsis Screen: Does the patient meet any 2 criteria? No. Patient's initial sepsis screen is negative. Does the patient have a suspected source of infection? No. Patient's initial sepsis screen is negative. Risk Assessment: Do you want to hurt yourself or someone else? Patient reports no desire to harm self or others. Onset of symptoms was December 05, 2022. 09:04 Method Of Arrival: Ambulatory 09:04 Acuity: KERVIN 4 iw 09:08 Acuity: KERVIN 3 Triage Assessment: 11:11 General: Appears in no apparent distress. Behavior is calm, cooperative, appropriate jh5 for age. 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 - Social history:: Smoking status: Patient denies any tobacco usage or history of. Screenin:35 [facility] ED Fall Risk Assessment (Adult) History of falling in the last 3 months, jh5 including since admission No falls in past 3 months (0 pts) Confusion or Disorientation No (0 pts) Intoxicated or Sedated No (0 pts) Impaired Gait No (0 pts) Mobility Assist Device Used No (0 pt) Altered Elimination No (0 pt) Score/Fall Risk Level 0 - 2 = Low Risk. Abuse screen: Denies threats or abuse. Denies injuries from another. Nutritional screening: No deficits noted. Tuberculosis screening: No symptoms or risk factors identified. Assessment: 10:36 Pain: Denies pain. Respiratory: Airway is patent Respiratory effort is even, unlabored, jh5 Breath sounds are clear. EENT: Throat is clear is pink. Vital Signs: 09:04 BP 125 / 72; Pulse 85; Resp 16; Temp 98.9; Pulse Ox 100% ; Weight 59.47 kg; Height 5 iw ft. 1 in. (154.94 cm); Pain 8/10; 10:34 BP 122 / 75; Pulse 80; Resp 16; Temp 98.6; Pulse Ox 100% ; jh5 09:04 Body Mass Index 24.77 (59.47 kg, 154.94 cm) iw ED Course: 09:02 Patient arrived in ED. mr 09:03 Emperatriz Peck FNP-C is PHCP. snw 09:03 Vinh Mccray MD is Attending Physician. snw 09:06 Triage completed. iw 09:06 Arm band placed on. iw 09:09 PHCP role handed off by Emperatriz Peck FNP-C en 09:09 Aline Alexandre PA is PHCP. en 09:29 Chastity Pollock, CHRIS is Primary Nurse. jh5 10:35 Patient has correct armband on for positive identification. Bed in low position. Call jh5 light in reach. Side rails up X 1. 10:35 No provider procedures requiring assistance completed. Inserted saline lock: 20 gauge jh5 in left antecubital area, using aseptic technique. 11:11 IV discontinued, intact, bleeding controlled, No redness/swelling at site. Pressure jh5 dressing applied. Administered Medications: 09:43 Drug: NS 0.9% 500 ml Route: IV; Rate: bolus; Site: left antecubital; 5 Medication: 10:36 VIS not applicable for this client. jh5 Outcome: 10:38 Discharge ordered by . en 11:11 Discharged to home jh5 11:11 Condition: good 11:11 Discharge instructions given to patient, Instructed on discharge instructions, follow up and referral plans. medication usage, safety practices, Demonstrated understanding of instructions, follow-up care, medications, Prescriptions given X 1. 11:12 Patient left the ED. jh5 Signatures: Emperatriz Peck FNP-C APRON CLEANER-Csnw Padmini [place] mr Luda Kincaid, RN RN iw Chastity Pollock RN RN jh5 Aline Alexandre PA PA en Corrections: (The following items were deleted from the chart) 09:06 09:06 Home Meds: Vitamin Oral tab 1 tab once daily; jose ramon albright
[2022-12-07 11:20] VITALS: O2SAT 100
[2022-12-07 11:21] VITALS: BP 122/75; TEMP 98.6
== END 2022-12-07 11:12 | disposition home or self-care (01) ==
LOC: ER 08:59
DX: J02.9 Acute pharyngitis, unspecified (principal); R05.9 Cough, unspecified; Z20.822 Contact with and (suspected) exposure to COVID-19
CPT/HCPCS: 87070; 87081; 0240U; J7040; 99283

== ENCOUNTER 2024-10-06 13:56 | Emergency (ER) | payer OTHER ==
--- OUTSIDE RECORDS SUMMARY | 2024-10-06 14:06 | XMS REPORT | Continuity of Care Document ---
Author Name Unknown Address [address] [facility] [address] [place] [address] [facility] thconnect Address [address] [facility] [address] [place] [address] Care Team Providers Care Insurance Risk Surveyor Name Role Phone Kehinde PIRES, Jennifer Primary Care Physician RADHA ALFARO Attending Clinician Unavailable LE CALIX Attending Clinician Unavailab Suhas Kendrick MD Attending Clinician [phone] Le Calix DO Attending Clinician + [phone] NANCY JUNG Attending Clinician Unavailable Nancy Jung NP Attending Clinician [phone] JOVANI LIZAMA Attending Clinician UnavailLeslie Henderson PA-C Attending Clinician [phone] Unknown, Attending Attending Clinician Unavailab LESLIE Albarran Attending Clinician Unavailable Saleem Hernandez Attending Clinician + YOLANDA NESBITT Attending Clinician Unavailab Yolanda Koenig DO Attending Clinician [phone] Shelby Schulz Attending Clinician +[phone] BRYON RASMUSSEN Attending Clinician Unavailable Lab, Ang - Db Attending Clinician Unavailable Bryon Currie Attending Clinician [phone] Doctor Unassigned, Schuyler Attending Clinician U navailable EVA, LUCIA VARGAS Attending Clinician Unavailab le Eva WELDING MACHINE OPERATOR ELECTRON BEAM, Lucia Vargas Attending Clinician Ez WELDING MACHINE OPERATOR ELECTRON BEAM, Mani Attending Clinician [phone] Provider, [facility] Attending Clinician Unavailable MANI HUI Attending Clinician UnavailBONILLA Carpenter Attending Clinician Unavailable KIM GRADY Attending Clinician Unavailable Miguel A WELDING MACHINE OPERATOR ELECTRON BEAM, Kim Attending Clinician [phone] Neha WELDING MACHINE OPERATOR ELECTRON BEAM, Luly Ledezma Attending Clinician + [phone] Sanjiv WELDING MACHINE OPERATOR ELECTRON BEAM, Naman Drummond Attending Clinician [phone] Sarah Rose MD Attending Clinician [phone] LULY SOLOMON Attending Clinician Unavailab HENRIETTA Lamb Attending Clinician Unavailable Green WELDING MACHINE OPERATOR ELECTRON BEAM, Henrietta Attending Clinician [phone] Nurse, [facility] Attending Clinician Un available MANDIE HARDEN Attending Clinician Unavailable PERCY JOHNSON Attending Clinician Unavailable SALEEM HARMAN Attending Clinician Unavail able NAMAN NESBITT Attending Clinician UnavailCOLUMBA Jacobson Attending Clinician Unavailable Columba Gray MD Attending Clinician [phone] Dick Marshall RN Attending Clinician Unavailable Ultrasound, Ang-Mfm Attending Clinician UnavailSubhash Rivero MD Attending Clinician +[phone] David Flanagan MD Attending Clinician +[phone] COLUMBA GRAY Admitting Clinician Unavailable SUHAS GARCIA Admitting Clinician UnavailColumba Jacobson MD Admitting Clinician [phone] Payers Payer Name Policy Type Policy Number Effective Date Expirati on Date Source [facility]MERLY [facility] [id number] 2020 00:00:00 [place] [id number] 2020 00:00:00 Problems Condition Name Condition Details Condition Category Status Onset Date Resolution Date Last Treatment Date Treating Clinician Comments Source COVID-19 COVID-19 Disease Active 06-10 00:00: 00 [facility] Strep pharyngiti s Strep pharyngiti s Disease Active 7-13 00:00: 00 [facility] Encounter for other general counseling or advice on contracept ion Encounter for other general counseling or advice on contracept ion Disease Active 7- 00:00: 00 [facility] Atypical squamous cell changes of undetermin ed significan ce (ASCUS) on vaginal cytology Atypical squamous cell changes of undetermin ed significan ce (ASCUS) on vaginal cytology Disease Active 2019-11 2-10 00:00: 00 Overview: Formattin g of this note might be different from the original. Repeat pap smear in 1 year [facility] Overweight (BMI 25.0-29.9) Overweight (BMI 25.0-29.9) Disease Active 2019-11 1 00:00: 00 [facility] Genital herpes simplex Genital herpes simplex Disease Active 8-14 00:00: 00 [facility] Abnormal glandular Papanicola ou smear of cervix Abnormal glandular Papanicola ou smear of cervix Disease Resolve d 8-16 00:00: 00 2021-11-06 00:00:00 2021-11-06 14:04:36 [facility] Anemia, Anemia, Disease Resolve d 7-06 00:00: 00 2021-11-06 00:00:00 2021-11-06 14:04:36 [facility] Vaginal itching Vaginal itching Disease Resolve d 6-16 00:00: 00 2021-11-06 00:00:00 2021-11-06 14:04:36 [facility] Screening for viral disease Screening for viral disease Disease Resolve d 2019-11 00:00: 00 2021-11-06 00:00:00 2021-11-06 14:04:36 [facility] Injury of sciatic nerve, unspecifie d laterality , sequela Injury of sciatic nerve, unspecifie d laterality , sequela Disease Resolve d 2019-11 00:00: 00 2021-11-06 00:00:00 2021-11-06 14:04:36 [facility] (spontaneo us vaginal delivery) (spontaneo us vaginal delivery) Disease Resolve d 2020-0 7-06 00:00: 00 2021-06-24 00:00:00 2021-06-24 11:30:52 [facility] Single live Single live Disease Resolve d 2020-0 7-06 00:00: 00 2021-06-24 00:00:00 2021-06-24 11:30:54 [facility] 37 weeks gestation of 37 weeks gestation of Disease Resolve d 0 7-05 00:00: 00 2021-06-24 00:00:00 2021-06-24 11:31:09 [facility] Anemia of mother in , antepartum Anemia of mother in , antepartum Disease Resolve d 0 6-30 00:00: 00 2021-06-24 00:00:00 2021-06-24 11:31:08 [facility] Need for Tdap vaccinatio n Need for Tdap vaccinatio n Disease Resolve d 0 5-11 00:00: 00 2021-06-24 00:00:00 2021-06-24 11:30:59 [facility] Supervisio n of high risk in third trimester Supervisio n of high risk in third trimester Disease Resolve d 2019-11 00:00: 00 2021-06-24 00:00:00 2021-06-24 11:30:53 [facility] Nausea and vomiting during prior to 22 weeks gestation Nausea and vomiting during prior to 22 weeks gestation Disease Resolve d 2019-11 00:00: 00 2021-06-24 00:00:00 2021-06-24 11:31:00 [facility] Multiparit y Multiparit y Disease Resolve d 2019-11 00:00: 00 2021-06-24 00:00:00 2021-06-24 11:31:01 [facility] Allergies, Adverse Reactions, Alerts Allergy Name Allergy Type Status Severity Reaction(s) Onset Date Inactive Date Treating Clinician Comments Source none (Not Checked) Propensi ty to adverse reaction to drug Active 2023-11 0-23 00:00: 00 Jamari Juan Chavez NO KNOWN ALLERGIE S Drug Class Active [facility] Social History Social Habit Start Date Stop Date Quantity Comments Source Gender identity [facility] Alcoholic beverage intake 2024-09-30 00:00:00 2024-09-30 00:00:00 Ex-drinker (finding) [facility] History of Social function 2023-06-10 00:00:00 2023-06-10 00:00:00 [facility] Exposure to SARS-CoV-2 (event) 2023-03-15 00:00:00 2023-03-25 13:48:00 Not sure [facility] Alcohol intake 2022-01-15 00:00:00 2022-01-15 00:00:00 Ex-drinker (finding) [facility] Tobacco use and exposure 2020-10-23 00:00:00 2020-10-23 00:00:00 Smokeless tobacco non-user [facility] Sex assigned at 1995 00:00:00 1995 00:00:00 [facility] Smoking Status Start Date Stop Date Source Never smoked tobacco [facility] Medications Ordered Medication Name Filled Medication Name Start Date Stop Date Current Medication? Ordering Clinician Indication Dosage Frequency Signature (SIG) Comments Components Source Bromfed DM 2 mg-30 mg-10 mg/5 mL oral syrup 07-04 00:00: 00 Yes 20mg/5 mL Jamari Chavez norethindro ne (contracept sparkle) 0.35 mg tablet 04-10 00:00: 00 Yes 1mg Jamari Juan Scott ondansetron (ZOFRAN-ODT ) disintegrat ing tablet 4 mg 04-03 19:30: 00 04-03 18:48 :00 No [id number] 4mg 4 mg, Oral, ONCE, 1 dose, On Wed04/03/24 at 1430, Routine [facility] ondansetron 4 mg disintegrat ing tablet 04-03 00:00: 00 Yes [id number] 4mg Take 1 tablet by mouth every 8 (eight) hours as needed for Nausea and Vomiting (N/V). [facility] cephALEXin 500 mg capsule 5-06 00:00: 00 04-09 04:59 :00 No [id number] 500mg Take 1 capsule by mouth 4 (four) times daily for 5 days. [facility] metronidazo le 500 mg tablet 3-06 00:00: 00 Yes 1mg Jamari Chavez medroxyprog esterone 150 mg/mL intramuscul ar suspension 01-26 00:00: 00 Yes mg/mL Jamari Chavez INJECT 1 ML INTRAMUSCUL LINA ONCE EVERY 3 MONTHS. 01-25 00:00: 00 Yes 150 Jamari Juan Scott loratadine 10 mg tablet 2022-11 2 00:00: 00 Yes mg Jamari Chavez 1 TABLET PO BID 2022-11 00:00: 00 04-10 00:00 :00 No 500 Jamari Chavez APPLY TO THE AFFECTED AREA TWICE DAILY DIRECTED 2022-11 0 00:00: 00 Yes Jamari Chavez APPLY AND GENTLY MASSAGE INTO AFFECTED AREA(S) TWICE DAILY. 2022-11 0 00:00: 00 04-10 00:00 :00 No 1 Jamari Juan Scott APPLY SPARINGLY AND MASSAGE IN TWICE DAILY. 2022-11 0-03 00:00: 00 04-10 00:00 :00 No 1 Jamari Chavez VALACYCLOVI R 500 MG 18 00:00: 00 Yes Jamari Chavez TAKE 1 TABLET DAILY DIRECTED. 08-13 00:00: 00 Yes [id number] Jamari Juan Scott TAKE 1 TABLET BY MOUTH TWICE DAILY 08-13 00:00: 00 Yes Jamari Juan Scott TAKE 1 TABLET BY MOUTH DAILY DIRECTED 08-13 00:00: 00 Yes Jamari Juan Scott TAKE 1 TABLET TWICE DAILY. 08-13 00:00: 00 04-10 00:00 :00 No 500 Jamari Juan Scott 1 TABLET PO BID 08-13 00:00: 00 04-10 00:00 :00 No 500 Jamari Chavez TAKE 1 TABLET TWICE DAILY. 9-15 00:00: 00 04-10 00:00 :00 No 500 Jamari Chavez TAKE 1 TABLET BY MOUTH EVERY 72 HOURS 07-08 00:00: 00 Yes Jamari Chavez fluconazole (DIFLUCAN) 150 mg tablet 07-08 00:00: 00 04-03 00:00 :00 No [id number] 150mg Take 1 tablet by mouth every 72 (seventy-t wo) hours. [facility] miconazole 100 mg vaginal suppository 07-08 00:00: 00 07-16 04:59 :00 No [id number] 100mg Insert 1 Suppositor y into vagina at bedtime for 7 days. [facility] loratadine 10 mg tablet 06-14 00:00: 00 Yes [id number] 10mg Take 1 tablet by mouth in the morning. [facility] Olopatadine (PATADAY) 0.2 % ophthalmic drops 06-14 00:00: 00 Yes [id number] 9102 1[drp] Place 1 Drop in each eye in the morning. [facility] TAKE 1 TABLET BY MOUTH IN THE MORNING 06-14 00:00: 00 04-10 00:00 :00 No Jamari Chavez INSTILL 1 DROP IN RIGHT EYE FOUR TIMES DAILY 06-10 00:00: 00 Yes Jamari Chavez ofloxacin 0.3 % ophthalmic solution 06-10 00:00: 00 Yes [id number] 9102 1[drp] Place 1 Drop in right eye 4 (four) times daily. [facility] TAKE 1 TABLET BY MOUTH IN THE MORNING FOR 2 DOSES 03-26 00:00: 00 Yes Jamari Chavez METRONIDAZO LE 500 MG TABS 03-26 00:00: 00 04-10 00:00 :00 No Jamari Juan Chavez metroNIDAZO LE 500 mg tablet 03-26 00:00: 00 04-03 04:59 :00 No [id number] 500mg Take 1 tablet by mouth every 12 (twelve) hours for 7 days. [facility] fluconazole (DIFLUCAN) 150 mg tablet 03-26 00:00: 00 03-29 04:59 :00 No [id number] 150mg Take 1 tablet by mouth in the morning for 2 doses. [facility] TAKE 1 TABLET BY MOUTH 1 TIME NOW FOR 1 DOSE 03-25 00:00: 00 Yes Jamari Chavez Levonorgest rel (PLAN B ONE-STEP) 1.5 mg tablet 03-25 00:00: 00 03-26 04:59 :00 No [id number] 1.5mg Take 1 tablet by mouth once now for 1 dose. [facility] TAKE 1 TABLET BY MOUTH EVERY 6 HOURS FOR UP TO 5 DAYS NEEDED FOR SEVERE PAIN 01-28 00:00: 00 Yes Jamari Chavez DISSOLVE 1 TABLET ON THE TONGUE EVERY 8 HOURS NEEDED FOR NAUSEA OR VOMITING 01-28 00:00: 00 Yes Jamari Chavez ondansetron 4 mg disintegrat ing tablet 01-28 00:00: 00 06-14 00:00 :00 No [id number] 4mg Take 1 tablet by mouth every 8 (eight) hours as needed for Nausea and Vomiting (N/V). [facility] butalbital- acetaminoph en-caff 50-325-40 mg tablet 01-28 00:00: 00 02-03 05:59 :00 No [id number] 1{tbl} Take 1 tablet by mouth every 6 (six) hours as needed for Pain (scale 7-10) for up to 5 days. [facility] PANTOPRAZOL E SODIUM 20 MG TBEC 12-28 00:00: 00 Yes Jamari Juan Scott TAKE 1 CAPSULE BY MOUTH EVERY 8 HOURS FOR 10 DAYS 12-08 00:00: 00 Yes Jamari Chavez ACYCLOVIR 400MG TABLETS 2021-11- 00:00: 00 Yes Jamaritanna Chavez acyclovir 400 mg tablet 2021-11 00:00: 10-20 05:59 :00 No [id number] 400mg Take 1 tablet by mouth in the morning and 1 tablet at noon and 1 tablet in the evening. Do all this for 7 days. [facility] METRONIDAZO LE 500 MG TABS 2021-11 00:00: 00 04-10 00:00 :00 No Jamari Chavez metroNIDAZO LE (FLAGYL) 500 mg tablet 2021-11 00:00: 00 10-13 05:59 :00 No [id number] 500mg Take 1 tablet by mouth every 12 (twelve) hours for 7 days. [facility] ondansetron (ZOFRAN) 4 mg tablet 06-10 00:00: 00 06-14 00:00 :00 No [id number] 4mg Take 1 tablet by mouth every 8 (eight) hours. [facility] amoxicillin 500 mg capsule 06-10 00:00: 00 06-21 04:59 :00 No [id number] 500mg Take 1 capsule by mouth in the morning and 1 capsule at noon and 1 capsule in the evening. Do all this for 10 days. [facility] dexAMETHaso ne (DECADRON) 6 mg tablet 06-10 00:00: 00 06-11 04:59 :00 No [id number] 9mg Take 1.5 tablets by mouth once now for 1 dose. [facility] fluticasone propionate 50 mcg/actuati on nasal spray - 00:00: 00 Yes [id number] 2{spray } Use 2 Sprays in each nostril daily. [facility] loratadine 10 mg tablet 5-04 00:00: 00 06-14 00:00 :00 No [id number] 10mg Take 1 tablet by mouth daily. [facility] metroNIDAZO LE 500 mg tablet 2-18 00:00: 00 01-24 05:59 :00 No [id number] 500mg Take 1 tablet by mouth every 12 (twelve) hours for 7 days. [facility] fluconazole (DIFLUCAN) 150 mg tablet 01-16 00:00: 00 01-17 05:59 :00 No [id number] 150mg Take 1 tablet by mouth once now for 1 dose. [facility] NUVARING 0.12-0.015 mg/24 hr vaginal insert 2020-11 00:00: 00 Yes [id number] 1{each} Insert 1 Each into vagina once every month. Insert vaginally and leave in place for 3 consecutiv e weeks, then remove for 1 week. [facility] triamcinolo ne acetonide 0.1 % ointment 2020-11 1 00:00: 00 06-14 00:00 :00 No [facility] Immunizations Ordered Immunization Name Filled Immunization Name Date Status Comments Source Hep B, Adol or Pedi Dosage 2000-12-31 00:00:00 Completed [facility] Hep B, Adol or Pedi Dosage 2000-12-31 00:00:00 Completed [facility] Hep B, Adol or Pedi Dosage 2000-12-31 00:00:00 Completed [facility] Hep B, Adol or Pedi Dosage 2000-12-31 00:00:00 Completed [facility] Hep B, Adol or Pedi Dosage 2000-12-31 00:00:00 Completed [facility] Hep B, Adol or Pedi Dosage 2000-12-31 00:00:00 Completed [facility] Hep B, Adol or Pedi Dosage 2000-12-31 00:00:00 Completed [facility] Hep B, Adol or Pedi Dosage 2000-12-31 00:00:00 Completed [facility] Hep B, Adol or Pedi Dosage 2000-12-31 00:00:00 Completed [facility] Hep B, Adol or Pedi Dosage 2000-12-31 00:00:00 Completed [facility] Hep B, Adol or Pedi Dosage 2000-12-31 00:00:00 Completed [facility] Hep B, Adol or Pedi Dosage 2000-12-31 00:00:00 Completed [facility] Hep B, Adol or Pedi Dosage 2000-12-31 00:00:00 Completed [facility] Hep B, Adol or Pedi Dosage 2000-12-31 00:00:00 Completed [facility] Hep B, Adol or Pedi Dosage 2000-12-31 00:00:00 Completed [facility] Hep B, Adol or Pedi Dosage 2000-12-31 00:00:00 Completed [facility] Hep B, Adol or Pedi Dosage 2000-12-31 00:00:00 Completed [facility] Hep B, Adol or Pedi Dosage 2000-12-31 00:00:00 Completed HIB 4 Dose Schedule 1998-08-30 00:00:00 Completed [facility] DTP 1998-08-30 00:00:00 Completed [facility] HIB 4 Dose Schedule 1998-08-30 00:00:00 Completed [facility] DTP 1998-08-30 00:00:00 Completed [facility] HIB 4 Dose Schedule 1998-08-30 00:00:00 Completed [facility] DTP 1998-08-30 00:00:00 Completed [facility] HIB 4 Dose Schedule 1998-08-30 00:00:00 Completed [facility] DTP 1998-08-30 00:00:00 Completed [facility] HIB 4 Dose Schedule 1998-08-30 00:00:00 Completed [facility] DTP 1998-08-30 00:00:00 Completed [facility] HIB 4 Dose Schedule 1998-08-30 00:00:00 Completed [facility] DTP 1998-08-30 00:00:00 Completed [facility] HIB 4 Dose Schedule 1998-08-30 00:00:00 Completed [facility] DTP 1998-08-30 00:00:00 Completed [facility] HIB 4 Dose Schedule 1998-08-30 00:00:00 Completed [facility] DTP 1998-08-30 00:00:00 Completed [facility] HIB 4 Dose Schedule 1998-08-30 00:00:00 Completed [facility] DTP 1998-08-30 00:00:00 Completed [facility] HIB 4 Dose Schedule 1998-08-30 00:00:00 Completed [facility] DTP 1998-08-30 00:00:00 Completed [facility] HIB 4 Dose Schedule 1998-08-30 00:00:00 Completed [facility] DTP 1998-08-30 00:00:00 Completed [facility] HIB 4 Dose Schedule 1998-08-30 00:00:00 Completed [facility] DTP 1998-08-30 00:00:00 Completed [facility] HIB 4 Dose Schedule 1998-08-30 00:00:00 Completed [facility] DTP 1998-08-30 00:00:00 Completed [facility] HIB 4 Dose Schedule 1998-08-30 00:00:00 Completed [facility] DTP 1998-08-30 00:00:00 Completed [facility] HIB 4 Dose Schedule 1998-08-30 00:00:00 Completed [facility] DTP 1998-08-30 00:00:00 Completed [facility] HIB 4 Dose Schedule 1998-08-30 00:00:00 Completed [facility] DTP 1998-08-30 00:00:00 Completed [facility] HIB 4 Dose Schedule 1998-08-30 00:00:00 Completed [facility] DTP 1998-08-30 00:00:00 Completed [facility] HIB 4 Dose Schedule 1998-08-30 00:00:00 Completed DTP 1998-08-30 00:00:00 Completed Haemophilus influenzae type b vaccine, conjugate unspecified formulation 1998-08-30 00:00:00 Completed Hep B, Adol or Pedi Dosage 1997-06-24 00:00:00 Completed [facility] Hep B, Adol or Pedi Dosage 1997-06-24 00:00:00 Completed [facility] Hep B, Adol or Pedi Dosage 1997-06-24 00:00:00 Completed [facility] Hep B, Adol or Pedi Dosage 1997-06-24 00:00:00 Completed [facility] Hep B, Adol or Pedi Dosage 1997-06-24 00:00:00 Completed [facility] Hep B, Adol or Pedi Dosage 1997-06-24 00:00:00 Completed [facility] Hep B, Adol or Pedi Dosage 1997-06-24 00:00:00 Completed [facility] Hep B, Adol or Pedi Dosage 1997-06-24 00:00:00 Completed [facility] Hep B, Adol or Pedi Dosage 1997-06-24 00:00:00 Completed [facility] Hep B, Adol or Pedi Dosage 1997-06-24 00:00:00 Completed [facility] Hep B, Adol or Pedi Dosage 1997-06-24 00:00:00 Completed [facility] Hep B, Adol or Pedi Dosage 1997-06-24 00:00:00 Completed [facility] Hep B, Adol or Pedi Dosage 1997-06-24 00:00:00 Completed [facility] Hep B, Adol or Pedi Dosage 1997-06-24 00:00:00 Completed [facility] Hep B, Adol or Pedi Dosage 1997-06-24 00:00:00 Completed [facility] Hep B, Adol or Pedi Dosage 1997-06-24 00:00:00 Completed [facility] Hep B, Adol or Pedi Dosage 1997-06-24 00:00:00 Completed [facility] Hep B, Adol or Pedi Dosage 1997-06-24 00:00:00 Completed HIB 4 Dose Schedule 1997-06-21 00:00:00 Completed [facility] DTP 1997-06-21 00:00:00 Completed [facility] Polio (IPV/OPV) 1997-06-21 00:00:00 Completed [facility] HIB 4 Dose Schedule 1997-06-21 00:00:00 Completed [facility] DTP 1997-06-21 00:00:00 Completed [facility] Polio (IPV/OPV) 1997-06-21 00:00:00 Completed [facility] HIB 4 Dose Schedule 1997-06-21 00:00:00 Completed [facility] DTP 1997-06-21 00:00:00 Completed [facility] Polio (IPV/OPV) 1997-06-21 00:00:00 Completed [facility] HIB 4 Dose Schedule 1997-06-21 00:00:00 Completed [facility] DTP 1997-06-21 00:00:00 Completed [facility] Polio (IPV/OPV) 1997-06-21 00:00:00 Completed [facility] HIB 4 Dose Schedule 1997-06-21 00:00:00 Completed [facility] DTP 1997-06-21 00:00:00 Completed [facility] Polio (IPV/OPV) 1997-06-21 00:00:00 Completed [facility] HIB 4 Dose Schedule 1997-06-21 00:00:00 Completed [facility] DTP 1997-06-21 00:00:00 Completed [facility] Polio (IPV/OPV) 1997-06-21 00:00:00 Completed [facility] HIB 4 Dose Schedule 1997-06-21 00:00:00 Completed [facility] DTP 1997-06-21 00:00:00 Completed [facility] Polio (IPV/OPV) 1997-06-21 00:00:00 Completed [facility] HIB 4 Dose Schedule 1997-06-21 00:00:00 Completed [facility] DTP 1997-06-21 00:00:00 Completed [facility] Polio (IPV/OPV) 1997-06-21 00:00:00 Completed [facility] HIB 4 Dose Schedule 1997-06-21 00:00:00 Completed [facility] DTP 1997-06-21 00:00:00 Completed [facility] Polio (IPV/OPV) 1997-06-21 00:00:00 Completed [facility] HIB 4 Dose Schedule 1997-06-21 00:00:00 Completed [facility] DTP 1997-06-21 00:00:00 Completed [facility] Polio (IPV/OPV) 1997-06-21 00:00:00 Completed [facility] HIB 4 Dose Schedule 1997-06-21 00:00:00 Completed [facility] DTP 1997-06-21 00:00:00 Completed [facility] Polio (IPV/OPV) 1997-06-21 00:00:00 Completed [facility] HIB 4 Dose Schedule 1997-06-21 00:00:00 Completed [facility] DTP 1997-06-21 00:00:00 Completed [facility] Polio (IPV/OPV) 1997-06-21 00:00:00 Completed [facility] HIB 4 Dose Schedule 1997-06-21 00:00:00 Completed [facility] DTP 1997-06-21 00:00:00 Completed [facility] Polio (IPV/OPV) 1997-06-21 00:00:00 Completed [facility] HIB 4 Dose Schedule 1997-06-21 00:00:00 Completed [facility] DTP 1997-06-21 00:00:00 Completed [facility] Polio (IPV/OPV) 1997-06-21 00:00:00 Completed [facility] HIB 4 Dose Schedule 1997-06-21 00:00:00 Completed [facility] DTP 1997-06-21 00:00:00 Completed [facility] Polio (IPV/OPV) 1997-06-21 00:00:00 Completed [facility] HIB 4 Dose Schedule 1997-06-21 00:00:00 Completed [facility] DTP 1997-06-21 00:00:00 Completed [facility] Polio (IPV/OPV) 1997-06-21 00:00:00 Completed [facility] HIB 4 Dose Schedule 1997-06-21 00:00:00 Completed [facility] DTP 1997-06-21 00:00:00 Completed [facility] Polio (IPV/OPV) 1997-06-21 00:00:00 Completed [facility] HIB 4 Dose Schedule 1997-06-21 00:00:00 Completed DTP 1997-06-21 00:00:00 Completed Polio (IPV/OPV) 1997-06-21 00:00:00 Completed Haemophilus influenzae type b vaccine, conjugate unspecified formulation 1997-06-21 00:00:00 Completed Poliovirus, Live, Oral, Trivalent 1997-06-21 00:00:00 Completed HIB 4 Dose Schedule 1997-03-15 00:00:00 Completed [facility] DTP 1997-03-15 00:00:00 Completed [facility] MMR 1997-03-15 00:00:00 Completed [facility] [facility] (IPV/OPV[facility] 1997-03-15 00:00:00 Completed [facility] HIB 4 Dose Schedule 1997-03-15 00:00:00 Completed [facility] DTP 1997-03-15 00:00:00 Completed [facility] MMR 1997-03-15 00:00:00 Completed [facility] Polio (IPV/OPV) 1997-03-15 00:00:00 Completed [facility] HIB 4 Dose Schedule 1997-03-15 00:00:00 Completed [facility] DTP 1997-03-15 00:00:00 Completed [facility] MMR 1997-03-15 00:00:00 Completed [facility] Polio (IPV/OPV) 1997-03-15 00:00:00 Completed [facility] HIB 4 Dose Schedule 1997-03-15 00:00:00 Completed [facility] DTP 1997-03-15 00:00:00 Completed [facility] MMR 1997-03-15 00:00:00 Completed [facility] Polio (IPV/OPV) 1997-03-15 00:00:00 Completed [facility] HIB 4 Dose Schedule 1997-03-15 00:00:00 Completed [facility] DTP 1997-03-15 00:00:00 Completed [facility] MMR 1997-03-15 00:00:00 Completed [facility] Polio (IPV/OPV) 1997-03-15 00:00:00 Completed [facility] HIB 4 Dose Schedule 1997-03-15 00:00:00 Completed [facility] DTP 1997-03-15 00:00:00 Completed [facility] MMR 1997-03-15 00:00:00 Completed [facility] Polio (IPV/OPV) 1997-03-15 00:00:00 Completed [facility] HIB 4 Dose Schedule 1997-03-15 00:00:00 Completed [facility] DTP 1997-03-15 00:00:00 Completed [facility] MMR 1997-03-15 00:00:00 Completed [facility] Polio (IPV/OPV) 1997-03-15 00:00:00 Completed [facility] HIB 4 Dose Schedule 1997-03-15 00:00:00 Completed [facility] DTP 1997-03-15 00:00:00 Completed [facility] MMR 1997-03-15 00:00:00 Completed [facility] Polio (IPV/OPV) 1997-03-15 00:00:00 Completed [facility] HIB 4 Dose Schedule 1997-03-15 00:00:00 Completed [facility] DTP 1997-03-15 00:00:00 Completed [facility] MMR 1997-03-15 00:00:00 Completed [facility] Polio (IPV/OPV) 1997-03-15 00:00:00 Completed [facility] HIB 4 Dose Schedule 1997-03-15 00:00:00 Completed [facility] DTP 1997-03-15 00:00:00 Completed [facility] MMR 1997-03-15 00:00:00 Completed [facility] Polio (IPV/OPV) 1997-03-15 00:00:00 Completed [facility] HIB 4 Dose Schedule 1997-03-15 00:00:00 Completed [facility] DTP 1997-03-15 00:00:00 Completed [facility] MMR 1997-03-15 00:00:00 Completed [facility] Polio (IPV/OPV) 1997-03-15 00:00:00 Completed [facility] HIB 4 Dose Schedule 1997-03-15 00:00:00 Completed [facility] DTP 1997-03-15 00:00:00 Completed [facility] MMR 1997-03-15 00:00:00 Completed [facility] Polio (IPV/OPV) 1997-03-15 00:00:00 Completed [facility] HIB 4 Dose Schedule 1997-03-15 00:00:00 Completed [facility] DTP 1997-03-15 00:00:00 Completed [facility] MMR 1997-03-15 00:00:00 Completed [facility] Polio (IPV/OPV) 1997-03-15 00:00:00 Completed [facility] HIB 4 Dose Schedule 1997-03-15 00:00:00 Completed [facility] DTP 1997-03-15 00:00:00 Completed [facility] MMR 1997-03-15 00:00:00 Completed [facility] Polio (IPV/OPV) 1997-03-15 00:00:00 Completed [facility] HIB 4 Dose Schedule 1997-03-15 00:00:00 Completed [facility] DTP 1997-03-15 00:00:00 Completed [facility] MMR 1997-03-15 00:00:00 Completed [facility] Polio (IPV/OPV) 1997-03-15 00:00:00 Completed [facility] HIB 4 Dose Schedule 1997-03-15 00:00:00 Completed [facility] DTP 1997-03-15 00:00:00 Completed [facility] MMR 1997-03-15 00:00:00 Completed [facility] Polio (IPV/OPV) 1997-03-15 00:00:00 Completed [facility] HIB 4 Dose Schedule 1997-03-15 00:00:00 Completed [facility] DTP 1997-03-15 00:00:00 Completed [facility] MMR 1997-03-15 00:00:00 Completed [facility] Polio (IPV/OPV) 1997-03-15 00:00:00 Completed [facility] HIB 4 Dose Schedule 1997-03-15 00:00:00 Completed DTP 1997-03-15 00:00:00 Completed MMR 1997-03-15 00:00:00 Completed Polio (IPV/OPV) 1997-03-15 00:00:00 Completed Haemophilus influenzae type b vaccine, conjugate unspecified formulation 1997-03-15 00:00:00 Completed [facility] Poliovirus, Live, Oral, Trivalent 1997-03-15 00:00:00 Completed Hep B, Adol or Pedi Dosage 1996-10-03 00:00:00 Completed [facility] Hep B, Adol or Pedi Dosage 1996-10-03 00:00:00 Completed [facility] Hep B, Adol or Pedi Dosage 1996-10-03 00:00:00 Completed [facility] Hep B, Adol or Pedi Dosage 1996-10-03 00:00:00 Completed [facility] Hep B, Adol or Pedi Dosage 1996-10-03 00:00:00 Completed [facility] Hep B, Adol or Pedi Dosage 1996-10-03 00:00:00 Completed [facility] Hep B, Adol or Pedi Dosage 1996-10-03 00:00:00 Completed [facility] Hep B, Adol or Pedi Dosage 1996-10-03 00:00:00 Completed [facility] Hep B, Adol or Pedi Dosage 1996-10-03 00:00:00 Completed [facility] Hep B, Adol or Pedi Dosage 1996-10-03 00:00:00 Completed [facility] Hep B, Adol or Pedi Dosage 1996-10-03 00:00:00 Completed [facility] Hep B, Adol or Pedi Dosage 1996-10-03 00:00:00 Completed [facility] Hep B, Adol or Pedi Dosage 1996-10-03 00:00:00 Completed [facility] Hep B, Adol or Pedi Dosage 1996-10-03 00:00:00 Completed [facility] Hep B, Adol or Pedi Dosage 1996-10-03 00:00:00 Completed [facility] Hep B, Adol or Pedi Dosage 1996-10-03 00:00:00 Completed [facility] Hep B, Adol or Pedi Dosage 1996-10-03 00:00:00 Completed [facility] Hep B, Adol or Pedi Dosage 1996-10-03 00:00:00 Completed HIB 4 Dose Schedule 1996-03-03 00:00:00 Completed [facility] DTP 1996-03-03 00:00:00 Completed [facility] Polio (IPV/OPV) 1996-03-03 00:00:00 Completed [facility] HIB 4 Dose Schedule 1996-03-03 00:00:00 Completed [facility] DTP 1996-03-03 00:00:00 Completed [facility] Polio (IPV/OPV) 1996-03-03 00:00:00 Completed [facility] HIB 4 Dose Schedule 1996-03-03 00:00:00 Completed [facility] DTP 1996-03-03 00:00:00 Completed [facility] Polio (IPV/OPV) 1996-03-03 00:00:00 Completed [facility] HIB 4 Dose Schedule 1996-03-03 00:00:00 Completed [facility] DTP 1996-03-03 00:00:00 Completed [facility] Polio (IPV/OPV) 1996-03-03 00:00:00 Completed [facility] HIB 4 Dose Schedule 1996-03-03 00:00:00 Completed [facility] DTP 1996-03-03 00:00:00 Completed [facility] Polio (IPV/OPV) 1996-03-03 00:00:00 Completed [facility] HIB 4 Dose Schedule 1996-03-03 00:00:00 Completed [facility] DTP 1996-03-03 00:00:00 Completed [facility] Polio (IPV/OPV) 1996-03-03 00:00:00 Completed [facility] HIB 4 Dose Schedule 1996-03-03 00:00:00 Completed [facility] DTP 1996-03-03 00:00:00 Completed [facility] Polio (IPV/OPV) 1996-03-03 00:00:00 Completed [facility] HIB 4 Dose Schedule 1996-03-03 00:00:00 Completed [facility] DTP 1996-03-03 00:00:00 Completed [facility] Polio (IPV/OPV) 1996-03-03 00:00:00 Completed [facility] HIB 4 Dose Schedule 1996-03-03 00:00:00 Completed [facility] DTP 1996-03-03 00:00:00 Completed [facility] Polio (IPV/OPV) 1996-03-03 00:00:00 Completed [facility] HIB 4 Dose Schedule 1996-03-03 00:00:00 Completed [facility] DTP 1996-03-03 00:00:00 Completed [facility] Polio (IPV/OPV) 1996-03-03 00:00:00 Completed [facility] HIB 4 Dose Schedule 1996-03-03 00:00:00 Completed [facility] DTP 1996-03-03 00:00:00 Completed [facility] Polio (IPV/OPV) 1996-03-03 00:00:00 Completed [facility] HIB 4 Dose Schedule 1996-03-03 00:00:00 Completed [facility] DTP 1996-03-03 00:00:00 Completed [facility] Polio (IPV/OPV) 1996-03-03 00:00:00 Completed [facility] HIB 4 Dose Schedule 1996-03-03 00:00:00 Completed [facility] DTP 1996-03-03 00:00:00 Completed [facility] Polio (IPV/OPV) 1996-03-03 00:00:00 Completed [facility] HIB 4 Dose Schedule 1996-03-03 00:00:00 Completed [facility] DTP 1996-03-03 00:00:00 Completed [facility] Polio (IPV/OPV) 1996-03-03 00:00:00 Completed [facility] HIB 4 Dose Schedule 1996-03-03 00:00:00 Completed [facility] DTP 1996-03-03 00:00:00 Completed [facility] Polio (IPV/OPV) 1996-03-03 00:00:00 Completed [facility] HIB 4 Dose Schedule 1996-03-03 00:00:00 Completed [facility] DTP 1996-03-03 00:00:00 Completed [facility] Polio (IPV/OPV) 1996-03-03 00:00:00 Completed [facility] HIB 4 Dose Schedule 1996-03-03 00:00:00 Completed [facility] DTP 1996-03-03 00:00:00 Completed [facility] Polio (IPV/OPV) 1996-03-03 00:00:00 Completed [facility] HIB 4 Dose Schedule 1996-03-03 00:00:00 Completed [facility] DTP 1996-03-03 00:00:00 Completed Polio (IPV/OPV) 1996-03-03 00:00:00 Completed Haemophilus influenzae type b vaccine, conjugate unspecified formulation 1996-03-03 00:00:00 Completed Poliovirus, Live, Oral, Trivalent 1996-03-03 00:00:00 Completed HIB 4 Dose Schedule Unknown Completed [facility] DTP Unknown Completed [facility] Hep B, Adol or Pedi Dosage Unknown Completed [facility] MMR Unknown Completed [facility] Polio (IPV/OPV) Unknown Completed [facility] Haemophilus influenzae type b vaccine, conjugate unspecified formulation Unknown Completed [facility] Poliovirus, Live, Oral, Trivalent Unknown Completed [facility] HIB 4 Dose Schedule Unknown Completed [facility] DTP Unknown Completed [facility] Hep B, Adol or Pedi Dosage Unknown Completed [facility] MMR Unknown Completed [facility] Polio (IPV/OPV) Unknown Completed [facility] Haemophilus influenzae type b vaccine, conjugate unspecified formulation Unknown Completed [facility] Poliovirus, Live, Oral, Trivalent Unknown Completed [facility] Vital Signs Vital Name Observation Time Observation Value Comments S ource Systolic blood pressure 2024-10-01 05:47:00 119 mm[Hg] [facility] Diastolic blood pressure 2024-10-01 05:47:00 74 mm[Hg] [facility] Heart rate 2024-10-01 05:47:00 75 /min [facility] Body temperature 2024-10-01 05:47:00 36.89 Lisa [facility] Respiratory rate 2024-10-01 05:47:00 16 /min [facility] Oxygen saturation in Arterial blood by Pulse oximetry 2024-10-01 05:47:00 100 /min [facility] Body height 2024-10-01 02:30:00 154.9 cm [facility] Body weight 2024-10-01 02:30:00 72.576 kg [facility] BMI 2024-10-01 02:30:00 30.23 kg/m2 [facility] Systolic blood pressure 2024-04-03 19:00:00 117 mm[Hg] [facility] Diastolic blood pressure 2024-04-03 19:00:00 81 mm[Hg] [facility] Heart rate 2024-04-03 19:00:00 79 /min [facility] Respiratory rate 2024-04-03 19:00:00 16 /min [facility] Oxygen saturation in Arterial blood by Pulse oximetry 2024-04-03 19:00:00 99 /min [facility] Body temperature 2024-04-03 18:24:00 36.78 Lisa [facility] Body height 2024-04-03 18:24:00 154.9 cm [facility] Body weight 2024-04-03 18:24:00 63.912 kg [facility] BMI 2024-04-03 18:24:00 26.62 kg/m2 [facility] Systolic blood pressure 2023-07-08 17:34:00 117 mm[Hg] [facility] Diastolic blood pressure 2023-07-08 17:34:00 77 mm[Hg] [facility] Heart rate 2023-07-08 17:34:00 76 /min [facility] Body temperature 2023-07-08 17:34:00 37 Lisa [facility] Body height 2023-07-08 17:34:00 154.9 cm [facility] Body weight 2023-07-08 17:34:00 64.003 kg [facility] BMI 2023-07-08 17:34:00 26.66 kg/m2 [facility] Oxygen saturation in Arterial blood by Pulse oximetry 2023-07-08 17:34:00 98 /min [facility] Systolic blood pressure 2023-06-14 18:42:00 114 mm[Hg] [facility] Diastolic blood pressure 2023-06-14 18:42:00 87 mm[Hg] [facility] Heart rate 2023-06-14 18:42:00 89 /min [facility] Respiratory rate 2023-06-14 18:42:00 18 /min [facility] Body weight 2023-06-14 18:42:00 62.143 kg [facility] BMI 2023-06-14 18:42:00 25.89 kg/m2 [facility] Oxygen saturation in Arterial blood by Pulse oximetry 2023-06-14 18:42:00 100 /min [facility] Systolic blood pressure 2023-06-10 15:34:00 107 mm[Hg] [facility] Diastolic blood pressure 2023-06-10 15:34:00 74 mm[Hg] [facility] Heart rate 2023-06-10 15:34:00 86 /min [facility] Body temperature 2023-06-10 15:34:00 37.11 Lisa [facility] Respiratory rate 2023-06-10 15:34:00 16 /min [facility] Body height 2023-06-10 15:34:00 154.9 cm [facility] Body weight 2023-06-10 15:34:00 62.285 kg [facility] BMI 2023-06-10 15:34:00 25.94 kg/m2 [facility] Oxygen saturation in Arterial blood by Pulse oximetry 2023-06-10 15:34:00 98 /min [facility] Systolic blood pressure 2023-03-25 19:15:00 134 mm[Hg] [facility] Diastolic blood pressure 2023-03-25 19:15:00 85 mm[Hg] [facility] Heart rate 2023-03-25 19:15:00 96 /min [facility] Body temperature 2023-03-25 19:15:00 37.5 Lisa [facility] Respiratory rate 2023-03-25 19:15:00 16 /min [facility] Body height 2023-03-25 19:15:00 154.9 cm [facility] Body weight 2023-03-25 19:15:00 65.046 kg [facility] BMI 2023-03-25 19:15:00 27.10 kg/m2 [facility] Oxygen saturation in Arterial blood by Pulse oximetry 2023-03-25 19:15:00 99 /min [facility] Systolic blood pressure 2023-01-28 17:05:00 124 mm[Hg] [facility] Diastolic blood pressure 2023-01-28 17:05:00 88 mm[Hg] [facility] Heart rate 2023-01-28 17:05:00 89 /min [facility] Body temperature 2023-01-28 17:05:00 37.22 Lisa [facility] Respiratory rate 2023-01-28 17:05:00 18 /min [facility] Body weight 2023-01-28 17:05:00 62.596 kg [facility] BMI 2023-01-28 17:05:00 26.07 kg/m2 [facility] Oxygen saturation in Arterial blood by Pulse oximetry 2023-01-28 17:05:00 100 /min [facility] Systolic blood pressure 2022-10-02 16:12:00 126 mm[Hg] [facility] Diastolic blood pressure 2022-10-02 16:12:00 86 mm[Hg] [facility] Heart rate 2022-10-02 16:12:00 103 /min [facility] Respiratory rate 2022-10-02 16:12:00 18 /min [facility] Body height 2022-10-02 16:12:00 154.9 cm [facility] Body weight 2022-10-02 16:12:00 59.467 kg [facility] BMI 2022-10-02 16:12:00 24.77 kg/m2 [facility] Oxygen saturation in Arterial blood by Pulse oximetry 2022-10-02 16:12:00 99 /min [facility] Systolic blood pressure 2022-06-10 17:40:00 141 mm[Hg] [facility] Diastolic blood pressure 2022-06-10 17:40:00 85 mm[Hg] [facility] Heart rate 2022-06-10 17:40:00 98 /min [facility] Body temperature 2022-06-10 17:40:00 37.89 Lisa [facility] Respiratory rate 2022-06-10 17:40:00 18 /min [facility] Body weight 2022-06-10 17:40:00 60.782 kg [facility] BMI 2022-06-10 17:40:00 24.51 kg/m2 [facility] Oxygen saturation in Arterial blood by Pulse oximetry 2022-06-10 17:40:00 99 /min [facility] Systolic blood pressure 2022-04-01 15:28:00 128 mm[Hg] [place] [facility] Diastolic blood pressure 2022-04-01 15:28:00 95 mm[Hg] [facility] Heart rate 2022-04-01 15:28:00 99 /min [facility] Body temperature 2022-04-01 15:28:00 36.83 Lisa [facility] Respiratory rate 2022-04-01 15:28:00 18 /min [facility] Body height 2022-04-01 15:28:00 157.5 cm [facility] Body weight 2022-04-01 15:28:00 64.411 kg [facility] BMI 2022-04-01 15:28:00 25.97 kg/m2 [facility] Oxygen saturation in Arterial blood by Pulse oximetry 2022-04-01 15:28:00 99 /min [facility] BP Systolic 2024-09-20 08:14:00 120 mm[Hg] Step hen F Scott BP Diastolic 2024-09-20 08:14:00 82 mm[Hg] Jamie phen F Scott Weight Measured 2024-09-20 08:14:00 161.00 pounds Jamari Chavez Height Measured 2024-09-20 08:14:00 61.00 inches Jamari F [facility] Body Temperature 2024-09-20 08:14:00 98.10 degrees Jamari F [facility] Heart Rate 2024-09-20 08:14:00 84.00 /min Zoey en [facility] Respiratory Rate 2024-09-20 08:14:00 18.00 /min Jamari F Scott BP Diastolic 2024-07-04 15:21:00 79 mm[Hg] Jamie phen F [facility] Weight Measured 2024-07-04 15:21:00 152.00 pounds Jamari Chavez Height Measured 2024-07-04 15:21:00 61.00 inches Jamaritanna Chavez Body Temperature 2024-07-04 15:21:00 98.20 degrees Jamari F [facility] Heart Rate 2024-07-04 15:21:00 93.00 /min Zoey en [facility] Respiratory Rate 2024-07-04 15:21:00 17.00 /min Jamari F Scott BP Systolic 2024-07-04 15:21:00 118 mm[Hg] Step hen F Scott BP Systolic 2024-04-10 11:04:00 120 mm[Hg] Step hen F Scott BP Diastolic 2024-04-10 11:04:00 84 mm[Hg] Jamie phen [facility] Weight Measured 2024-04-10 11:04:00 142.00 pounds Jamari F Scott Height Measured 2024-04-10 11:04:00 61.00 inches Jamari F Scott Body Temperature 2024-04-10 11:04:00 97.80 degrees Jamari F Scott Heart Rate 2024-04-10 11:04:00 93.00 /min Zoey en F [facility] Respiratory Rate 2024-04-10 11:04:00 18.00 /min Jamari F Scott BP Systolic 2024-02-01 11:24:00 120 mm[Hg] Step hen F Scott BP Diastolic 2024-02-01 11:24:00 70 mm[Hg] Jamie phen F Scott Weight Measured 2024-02-01 11:24:00 145.00 pounds Jamari F Scott Height Measured 2024-02-01 11:24:00 61.00 inches Jamari F Scott Body Temperature 2024-02-01 11:24:00 97.00 degrees Jamari F Scott Heart Rate 2024-02-01 11:24:00 100.00 /min Step [facility] Respiratory Rate 2024-02-01 11:24:00 20.00 /min Jamari F Soctt BP Systolic 2024-01-25 09:07:00 110 mm[Hg] Step hen F Scott BP Diastolic 2024-01-25 09:07:00 70 mm[Hg] Jamie phen F Scott Weight Measured 2024-01-25 09:07:00 143.00 pounds Jamari F Scott Height Measured 2024-01-25 09:07:00 68.00 inches Jamari F Scott Body Temperature 2024-01-25 09:07:00 97.20 degrees Jamari F Scott Heart Rate 2024-01-25 09:07:00 86.00 /min Zoey en F Scott Respiratory Rate 2024-01-25 09:07:00 16.00 /min Jamari F Scott BP Systolic 2023-11-17 10:43:00 110 mm[Hg] Step hen F Scott BP Diastolic 2023-11-17 10:43:00 68 mm[Hg] Jamie phen F Scott Weight Measured 2023-11-17 10:43:00 147.00 pounds Jamari Chavez Height Measured 2023-11-17 10:43:00 68.00 inches Jamari F Scott Body Temperature 2023-11-17 10:43:00 97.90 degrees Jamari F Scott Heart Rate 2023-11-17 10:43:00 60.00 /min Zoey en F Scott Respiratory Rate 2023-11-17 10:43:00 20.00 /min Jamari F Scott BP Systolic 2023-08-13 14:14:00 118 mm[Hg] Step hen F Scott BP Diastolic 2023-08-13 14:14:00 82 mm[Hg] Jamie phen F Scott Weight Measured 2023-08-13 14:14:00 140.00 pounds Jamari Chavez Height Measured 2023-08-13 14:14:00 68.00 inches Jamari Chavez Body Temperature 2023-08-13 14:14:00 98.60 degrees Jamari F Scott Heart Rate 2023-08-13 14:14:00 88.00 /min Zoey en F Scott Respiratory Rate 2023-08-13 14:14:00 18.00 /min Jamari F Scott Procedures Procedure Date / Time Performed Performing Clinician Source US FIRST TRIMESTER LESS THAN 14 WEEKS WITH TRANSVAGINAL 2024-10-01 05:25:50 Suhas Garcia [facility] URINALYSIS 2024-10-01 04:01:00 [facility] LIPASE 2024-10-01 03:48:00 Suhas [facility] COMP. METABOLIC PANEL ([id number]) 2024-10-01 03:48:00 Suhas Garcia [facility] TOTAL BETA HCG ASSAY 2024-10-01 03:48:00 Suhas Garcia [facility] CBC WITH DIFF 2024-10-01 03:48:00 [facility] 2024-10-01 03:19:00 Suhas Garcia [facility] POCT TEST 2024-04-03 18:58:00 Nancy Jung [facility] URINALYSIS 2024-04-03 18:51:00 Nancy Jung [facility] RAPID STREP SCREEN FOR GROUP A 2024-04-03 18:51:00 Nancy Jung [facility] ASSIGNMENT OF BENEFITS 2023-06-14 19:08:46 Docto r Unassigned, Schuyler [facility] CONSENT/REFUSAL FOR DIAGNOSIS AND TREATMENT 2023-06-14 18:33:03 Doctor Unassigned, Schuyler [facility] POCT TEST 2023-03-25 20:11:00 Bryon Rasmussen [facility] ASSIGNMENT OF BENEFITS 2023-03-25 18:47:51 Docto r Unassigned, Schuyler [facility] CONSENT/REFUSAL FOR DIAGNOSIS AND TREATMENT 2023-01-28 17:02:01 Doctor Unassigned, Schuyler [facility] URINE CULTURE 2022-10-02 16:28:[address] [facility] GALV ONLY - VAGINAL PATHOGENS BY NUCLEIC ACID TESTING 2022-10-02 16:25:00 Mani Hui [facility] POCT TEST 2022-10-02 16:01:00 Deneen Hui [facility] POCT URINALYSIS 2022-10-02 16:00:00 Mani Hui [facility] RAPID STREP SCREEN FOR GROUP A 2022-06-10 17:43:00 Bonilla Amaya [facility] RAPID INFLUENZA A/B 2022-06-10 17:43:00 Mary Amaya [facility] COVID-19 (ID NOW RAPID TESTING) 2022-06-10 17:43:00 Bonilla Amaya [facility] CONSENT/REFUSAL FOR DIAGNOSIS AND TREATMENT 2022-06-10 17:36:51 Doctor Unassigned, Schuyler [facility] NOTICE OF PRIVACY PRACTICES 2022-04-01 15:24:13 Doctor Unassigned, Schuyler [facility] CONSENT/REFUSAL FOR DIAGNOSIS AND TREATMENT 2022-04-01 15:24:01 Doctor Unassigned, Schuyler [facility] Encounters Start Date/Time End Date/Time Encounter Type Admission Type Attending [facility] Care Facility Care Department Encounter ID Source 2021-09-29 04:02:01 Outpatient X [facility] LISA [id number] [facility] 2021-09-29 04:01:15 Emergency [facility] [id number] [facility] 2021-09-27 13:44:52 [facility] [facility] [id number] [facility] 2024-10-11 12:30:00 2024-10-11 12:30:00 Outpatient R RADHA ALFARO [facility] [id number] [facility] 2024-09-30 21:33:00 2024-10-01 00:52:00 Emergency LE MUNROE [facility] ERT [id number] [facility] 2024-09-30 21:33:00 2024-10-01 00:52:00 Emergency Suhas Garcia Whitney [facility] 1.2.840.114 350.1.13.10 4.2.7.2.686 [id number] [facility] 2024-09-20 08:13:47 2024-09-20 08:13:47 Outpatient SFA [facility] [id number] Jamari Chavez 2024-09-20 00:00:00 2024-09-20 00:00:00 Outpatient Visit [facility] [id number] Jamari Chavez 2024-09-01 13:13:54 2024-09-01 13:13:54 Outpatient SFA [facility] [id number] Jamari Chavez 2024-07-04 15:07:24 2024-07-04 15:07:24 Outpatient SFA [facility] [id number] Jamari Chavez 2024-07-04 00:00:00 2024-07-04 00:00:00 Outpatient Visit [facility] [id number] Jamari Chavez 2024-04-10 10:53:49 2024-04-10 10:53:49 Outpatient SFA SFA [id number] Jamari Chavez 2024-04-10 00:00:00 2024-04-10 00:00:00 Outpatient Visit SFA [id number] Jamari Chavez 2024-04-03 13:25:00 2024-04-03 15:11:00 Emergency X NANCY JUNG [facility] ERT [id number] [facility] 2024-04-03 13:25:00 2024-04-03 15:11:00 Emergency Nancy Jung G [facility] 1.2.840.114 350.1.13.10 4.2.7.2.686 [id number] [facility] 2024-02-01 11:23:13 2024-02-01 11:23:13 Outpatient SFA SFA [id number] Jamari Chavez 2024-02-01 00:00:00 2024-02-01 00:00:00 Outpatient Visit SFA [id number] Jamari Chavez 2024-01-25 09:06:04 2024-01-25 09:06:04 Outpatient SFA SFA [id number] Jamari Chavez 2024-01-25 00:00:00 2024-01-25 00:00:00 Outpatient Visit SFA [id number] Jamari Chavez 2023-11-17 10:39:16 2023-11-17 10:39:16 Outpatient SFA SFA [id number] Jamari Chavez 2023-11-17 00:00:00 2023-11-17 00:00:00 Outpatient Visit SFA [id number] Jamari Chavez 2023-08-13 14:02:20 2023-08-13 14:02:20 Outpatient SFA SFA [id number] Jamari Chavez 2023-08-13 00:00:00 2023-08-13 00:00:00 Outpatient Visit SFA [id number] Jamari Chavez 2023-07-20 13:15:00 2023-07-20 13:15:00 Outpatient R JOVANI LIZAMA [facility] [id number] [facility] 2023-07-08 12:20:00 2023-07-08 12:40:00 Urgent Care Leslie Rodriguez Unknown, Attending [facility] 1..840.114 350.1.13.10 4.2.7.2.686 [id number] [facility] 2023-07-08 12:20:00 2023-07-08 12:20:00 Outpatient LESLIE LOMBARDO [facility] [id number] [facility] 2023-07-07 00:00:00 2023-07-07 00:00:00 Telephone Saleem Harman [facility] AUTOMOTIVE TIRE TESTER [facility] MATERNAL & [facility] 1..840.114 350.1.13.10 4.2.7.2.686 [id number] [facility] 2023-06-14 13:44:00 2023-06-14 14:16:00 Emergency X YOLANDA NESBITT [facility] ERT [id number] [facility] 2023-06-14 13:44:00 2023-06-14 14:16:00 Emergency Yolanda Nesbitt [facility] ..840.114 350.1.13.10 4.2.7.2.686 [id number] [facility] 2023-06-10 10:20:00 2023-06-10 10:58:06 Outpatient R LESLIE RODRIGUEZ [facility] [id number] [facility] 2023-06-10 10:20:00 2023-06-10 10:58:06 Urgent Care Leslie Rodriguez Unknown, Attending [facility] 1.114 350.1.13.10 4.2.7.2.686 [id number] [facility] 2023-03-26 00:00:00 2023-03-26 00:00:00 Telephone Shelby Spear [facility] 1.114 350.1.13.10 4.2.7.2.686 [id number] [facility] 2023-03-25 13:40:00 2023-03-25 15:42:05 Outpatient R CHOCOBRYON Valera [facility] [id number] [facility] 2023-03-25 14:30:00 2023-03-25 14:45:00 Loin Puller Visit Lab, Ang - Db Unknown, Attending [facility] 1.114 350.1.13.10 4.2.7.2.686 [id number] [facility] 2023-03-25 13:40:00 2023-03-25 14:00:00 Urgent Care Bryon Rasmussen Unknown, Attending [facility] 1.114 350.1.13.10 4.2.7.2.686 [id number] [facility] 2023-03-25 00:00:00 2023-03-25 00:00:00 Orders Only Doctor Unassigned, Schuyler [facility] 1.114 350.1.13.10 4.2.7.2.686 [id number] [facility] 2023-01-28 11:06:00 2023-01-28 12:10:00 Emergency X LUCIA VELASQUEZ [facility] ERT [id number] [facility] 2023-01-28 11:06:00 2023-01-28 12:10:00 Emergency Lucia Velasquez [facility] 1.2840.114 350.1.13.10 4.2.7.2.686 [id number] [facility] 2022-10-12 00:00:00 2022-10-12 00:00:00 Patient Secure MsMani Song [facility] 1.284.114 350.1.13.10 4.2.7.2.686 [id number] [facility] 2022-10-05 00:00:00 2022-10-05 00:00:00 Telephone Provider, Yimi Johnston Urgent Care [facility] 1.2840.114 350.1.13.10 4.2.7.2.686 [id number] 370 [id number] [facility] 2022-10-02 12:15:00 2022-10-02 12:30:00 Loin Puller Visit Lab[facility] 1.2840.114 350.1.13.10 4.2.7.2.686 [id number] [facility] 2022-10-02 10:20:00 2022-10-02 11:49:18 Outpatient R MANI HUI [facility] [id number] [facility] 2022-10-02 10:20:00 2022-10-02 11:49:18 Urgent Care Mani Hui Unknown, Attending [facility] 1.2840.114 350.1.13.10 4.2.7.2.686 [id number] [facility] 2022-06-10 12:45:00 2022-06-10 13:31:00 Emergency X BONILLA AMAYA [facility] ERT [id number] [facility] 2022-06-10 12:45:00 2022-06-10 13:31:00 Emergency Bonilla Amaya [facility] 1.2.840.114 350.1.13.10 4.2.7.2.686 [id number] [facility] 2022-04-01 10:28:00 2022-04-01 12:01:00 Emergency X KIM GRADY [facility] ERT [id number] [facility] 2022-04-01 10:28:00 2022-04-01 12:01:00 Emergency Kim Grady [facility] 1.2840.114 350.1.13.10 4.2.7.2.686 [id number] [facility] 2022-04-01 00:00:00 2022-04-01 00:00:00 Orders Only Doctor Unassigned, Schuyler [facility] 1.2840.114 350.1.13.10 4.2.7.2.686 [id number] [facility] 2022-03-14 00:00:00 2022-03-14 00:00:00 Luly Huber [facility] AUTOMOTIVE TIRE TESTER [facility] MATERNAL & CHILD [facility] 1.2840.114 350.1.13.10 4.2.7.2.686 [id number] [facility] 2022-03-14 00:00:00 2022-03-14 00:00:00 Naman Jordan [facility] AUTOMOTIVE TIRE TESTER [facility] MATERNAL & CHILD [facility] 1.2840.114 350.1.13.10 4.2.7.2.686 [id number] [facility] 2022-02-23 14:20:00 2022-02-23 14:20:00 Urgent Care Mani Hui Amanda [facility] 1..840.114 350.1.13.10 4.2.7.2.686 [id number] [facility] 2022-02-23 14:20:00 2022-02-23 14:19:09 Outpatient R MANI HUI [facility] [id number] [facility] 2022-01-21 14:15:00 2022-01-21 14:15:00 Outpatient R SOLOMONLULY [facility] [id number] [facility] 2022-01-15 18:20:00 2022-01-15 18:20:00 Outpatient R [facility] [id number] [facility] 2022-01-15 10:40:00 2022-01-15 11:10:35 Outpatient R GERMAN HENRIETTA [facility] [id number] [facility] 2022-01-15 10:40:00 2022-01-15 11:10:35 Urgent Care Lainey PorterBryon Curran [facility] 1..840.114 350.1.13.10 4.2.7.2.686 [id number] 370 [id number] [facility] 2022-01-15 00:00:00 2022-01-15 00:00:00 Patient Secure Msg Yimi Kohler [facility] 1..840.114 350.1.13.10 4.2.7.2.686 [id number] 370 [id number] [facility] 2022-01-15 00:00:00 2022-01-15 00:00:00 Patient Secure Msg German Henrietta [facility] 1.114 350.1.13.10 4.2.7.2.686 [id number] 370 [id number] [facility] 2022-01-01 00:00:00 2022-01-01 00:00:00 Orders Only Doctor Unassigned, Schuyler [facility] 1.0114 350.1.13.10 4.2.7.2.686 [id number] [facility] 2021-12-24 14:00:00 2021-12-24 14:00:00 Outpatient R MANDIE HARDEN [facility] [id number] [facility] 2021-12-05 09:00:00 2021-12-05 09:00:00 Outpatient R PERCY JOHNSON [facility] [id number] [facility] 2021-12-01 10:45:00 2021-12-01 10:45:00 Outpatient R SALEEM HARMAN [facility] [id number] [facility] 2021-11-06 13:06:59 2021-11-06 13:41:41 Office Visit Naman Nesbitt [facility] AUTOMOTIVE TIRE TESTER [facility] MATERNAL & [facility] 1.114 350.1.13.10 4.2.7.2.686 [id number] [facility] 2021-11-06 13:00:00 2021-11-06 13:41:41 Outpatient R NAMAN NESBITT [facility] [id number] [facility] 2021-11-06 13:00:00 2021-11-06 13:41:41 Outpatient R NAMAN NESBITT [facility] [id number] [facility] 2021-11-06 00:00:00 2021-11-06 00:00:00 Orders Only Doctor Unassigned, Schuyler [facility] 1.114 350.1.13.10 4.2.7.2.686 [id number] [facility] 2021-10-31 00:00:00 2021-10-31 00:00:00 Telephone Neha Luly Ledezma [facility] AUTOMOTIVE TIRE TESTER [facility] & CHILD [facility] 1.840.114 350.1.13.10 4.2.7.2.686 [id number] [facility] 2021-10-28 13:30:00 2021-10-28 13:30:00 Outpatient R NAMAN NESBITT [facility] [id number] [facility] 2021-07-28 13:18:34 2021-07-28 13:46:54 Office Visit Solomon, Luly Ledezma [facility] 1.840.114 350.1.13.10 4.2.7.2.686 [id number] 107 [id number] [facility] 2021-07-28 13:30:00 2021-07-28 13:30:00 Outpatient R SOLOMON, LULY [facility] [id number] [facility] 2021-07-14 15:54:42 2021-07-14 16:51:52 Office Visit SolomonLuly [facility] ..840.114 350.1.13.10 4.2.7.2.686 [id number] 107 [id number] [facility] 2021-07-14 15:45:00 2021-07-14 15:45:00 Outpatient R SOLOMON, LULY [facility] [id number] [facility] 2021-06-24 11:07:59 2021-06-24 11:42:13 Routine Visit Saleem Harman [facility] AUTOMOTIVE TIRE TESTER [facility] & CHILD [facility] 1..840.114 350.1.13.10 4.2.7.2.686 [id number] 107 [id number] [facility] 2021-06-24 11:00:00 2021-06-24 11:00:00 Outpatient R SALEEM HARMAN [facility] [id number] [facility] 2021-06-04 13:45:00 2021-06-04 13:45:00 Outpatient R LULY SOLOMON [facility] [id number] [facility] 2021-06-02 00:00:00 2021-06-02 00:00:00 Telephone Luly Solomon [facility] AUTOMOTIVE TIRE TESTER [facility] & CHILD [facility] 1.2.840.114 350.1.13.10 4.2.7.2.686 [id number] 107 [id number] [facility] 2021-06-02 00:00:00 2021-06-02 00:00:00 Orders Only Doctor Unassigned, Schuyler [facility] 1.2.840.114 350.1.13.10 4.2.7.2.686 [id number] [facility] 2021-05-29 00:00:00 2021-05-29 00:00:00 Telephone Luly Solomon [facility] AUTOMOTIVE TIRE TESTER [facility] & CHILD [facility] 1.2.840.114 350.1.13.10 4.2.7.2.686 [id number] 107 [id number] [facility] 2021-05-28 13:45:13 2021-05-28 14:53:41 Routine Visit Luly Solomon [facility] AUTOMOTIVE TIRE TESTER [facility] & CHILD [facility] 1.2.840.114 350.1.13.10 4.2.7.2.686 [id number] 107 [id number] [facility] 2021-05-28 13:45:00 2021-05-28 13:45:00 Outpatient R LULY SOLOMON [facility] [id number] [facility] 2021-05-23 18:31:00 2021-05-23 23:25:00 Outpatient X COLUMBA GRAY [facility] LISA [id number] Univer jayde [facility] 2021-05-23 18:31:00 2021-05-23 23:25:00 Emergency Columba Gray [facility] 1.2.840.114 350.1.13.10 4.2.7.2.686 [id number] [facility] 2021-05-23 00:00:00 2021-05-23 00:00:00 Nurse Triage Dick Marshall [facility] 1.2.840.114 350.1.13.10 4.2.7.2.686 [id number] [facility] 2021-05-14 14:59:44 2021-05-14 16:04:45 Routine Visit Luly Solomon [facility] AUTOMOTIVE TIRE TESTER [facility] MATERNAL & CHILD [facility] 1.2.840.114 350.1.13.10 4.2.7.2.686 [id number] [facility] 2021-05-14 15:00:00 2021-05-14 15:00:00 Outpatient Darien LULY SOLOMON [facility] [id number] [facility] 2021-05-12 15:45:00 2021-05-12 15:45:00 Outpatient Darien LULY SOLOMON [facility] [id number] [facility] 2021-05-09 10:00:00 2021-05-09 10:00:00 Outpatient Darien LULY SOLOMON [facility] [id number] [facility] 2021-05-08 08:15:00 2021-05-08 08:15:00 Outpatient Darien LULY SOLOMON [facility] [id number] [facility] 2021-04-22 11:07:35 2021-04-22 11:42:55 Routine Visit Luly Solomon [facility] AUTOMOTIVE TIRE TESTER [facility] & CHILD [facility] 1.2.840.114 350.1.13.10 4.2.7.2.686 [id number] [facility] 2021-04-22 11:00:00 2021-04-22 11:00:00 Outpatient Darien SOLOMON, ROSDAWN [facility] [id number] [facility] 2021-04-08 13:50:09 2021-04-08 14:31:10 Loin Puller Visit Ultrasound, Yimi-Luly Briones Antonio F [facility] AUTOMOTIVE TIRE TESTER [facility] & CHILD [facility] 1.2.840.114 350.1.13.10 4.2.7.2.686 [id number] [facility] 2021-04-08 12:46:36 2021-04-08 13:35:54 Routine Visit Luly Solomon [facility] AUTOMOTIVE TIRE TESTER [facility] & CHILD [facility] 1.2.840.114 350.1.13.10 4.2.7.2.686 [id number] [facility] 2021-04-08 12:45:00 2021-04-08 12:45:00 Outpatient Darien LULY SOLOMON [facility] [id number] [facility] 2021-04-08 00:00:00 2021-04-08 00:00:00 Abstract Luly Solomon [facility] AUTOMOTIVE TIRE TESTER [facility] & CHILD [facility] 1.2.840.114 350.1.13.10 4.2.7.2.686 [id number] 107 [id number] [facility] 2021-03-26 00:00:00 2021-03-26 00:00:00 Telephone Luly Solomon [facility] 1.2.840.114 350.1.13.10 4.2.7.2.686 [id number] 107 [id number] [facility] 2021-03-25 09:36:46 2021-03-25 10:02:40 Routine Visit Luly Solomon [facility] AUTOMOTIVE TIRE TESTER [facility] MATERNAL & CHILD [facility] 1.2.840.114 350.1.13.10 4.2.7.2.686 [id number] 107 [id number] [facility] 2021-03-25 09:45:00 2021-03-25 09:45:00 Outpatient R LULY SOLOMON [facility] [id number] [facility] 2021-02-14 00:00:00 2021-02-14 00:00:00 Letter (Out) Saleem Harman [facility] AUTOMOTIVE TIRE TESTER [facility] & CHILD [facility] 1..840.114 350.1.13.10 4.2.7.2.686 [id number] 107 [id number] [facility] 2021-01-23 13:00:00 2021-01-23 13:00:00 Outpatient P [facility] [id number] [facility] 2021-01-15 11:00:00 2021-01-15 11:00:00 Outpatient R LULY SOLOMON [facility] [id number] [facility] 2020-12-30 00:00:00 2020-12-30 00:00:00 Telephone Luly Solomon [facility] AUTOMOTIVE TIRE TESTER [facility] CHILD [facility] 1..840.114 350.1.13.10 4.2.7.2.686 [id number] 107 [id number] [facility] 2020-12-20 10:58:41 2020-12-20 11:32:26 Routine Visit Luly Solomon [facility] AUTOMOTIVE TIRE TESTER [facility] & CHILD [facility] 1.2.840.114 350.1.13.10 4.2.7.2.686 [id number] [facility] 2020-12-20 11:00:00 2020-12-20 11:00:00 Outpatient R LULY SOLOMON [facility] [id number] [facility] 2020-12-06 00:00:00 2020-12-06 00:00:00 Abstract Luly Solomon [facility] AUTOMOTIVE TIRE TESTER [facility] MATERNAL & CHILD [facility] 1.2.840.114 350.1.13.10 4.2.7.2.686 [id number] 107 [id number] [facility] 2020-11-26 23:42:00 2020 03:48:00 Emergency Sanjiv Yolanda Benjy [facility] 1.2.840.114 350.1.13.10 4.2.7.2.686 [id number] [facility] 2020-11-20 11:48:27 2020-11-20 12:18:27 Loin Puller Visit Ultrasound, David Fregoso [facility] AUTOMOTIVE TIRE TESTER [facility] CHILD [facility] 1.2.840.114 350.1.13.10 4.2.7.2.686 [id number] [facility] 2020-11-20 11:33:37 2020-11-20 11:48:12 Routine Visit Lianna Solomonroxi Darien [facility] AUTOMOTIVE TIRE TESTER [facility] CHILD [facility] 1.2.840.114 350.1.13.10 4.2.7.2.686 [id number] [facility] 2020-11-20 10:45:00 2020-11-20 10:45:00 Outpatient R NEHA LULY [facility] [id number] [facility] 2020-11-20 00:00:00 2020-11-20 00:00:00 Abstract Lianna Solomonroxi [place] [facility] AUTOMOTIVE TIRE TESTER [facility] 1.2.840.114 350.1.13.10 4.2.7.2.686 [id number] [facility] 2020-10-23 13:02:10 2020-10-23 14:12:37 Initial Visit Luly Solomon [facility] AUTOMOTIVE TIRE TESTER [facility] 1.2.840.114 350.1.13.10 4.2.7.2.686 [id number] [facility] 2020-10-23 12:45:00 2020-10-23 12:45:00 Outpatient R LULY SOLOMON [facility] [id number] [facility] 2020-10-23 00:00:00 2020-10-23 00:00:00 Orders Only Doctor Unassigned, [place] [facility] 1..840.114 350.1.13.10 4.2.7.2.686 [id number] [facility] Results Test Description Test Time Test Comments Results Resul t Comments Source US FIRST TRIMESTER LESS THAN 14 WEEKS WITH TRANSVAGINAL 3 05:38:53 Exam: Less than 14 Weeks Ultrasound, 09/30/2024 10:15 PM. Ordering Physician: SUHAS GARCIA. History: pelvic/left adnexal pain ; eval for ectopic ; EGA 6 weeksby dates . Comparison: None. Technique: Early (less than 14 weeks) obstetric ultrasound was obtainedtransabdom inally. ?Transvaginal images were obtained for better evaluationof the early gestation and adnexa. Technical Quality: Adequate. Findings: Uterus measures 6 9.7 x 5.5 x 6.0 cm in size. There is a single intrauterine gestation. pole and yolk sac areidentified. ? pole crown-rump length measures 6 3.6 mm consistent withestimated gestational age of 6 weeks and 1 day. ? heart activity isseen. heart rate is 113 beats/min. Contour of the gestational sac is normal. There is no evidence ofsubchorionic hemorrhage. Right ovary measures 2.9 x 1.9 x 2.6 cm in size. ?Left ovary measures 2.5 x2.0 x 2.6 cm in size. ?Both ovaries demonstrated preserved vascular flow. There is no pelvic free fluid. [facility][id number][facility]-10-01 04:21:53* Test Item Value Reference Range Interpretation Comme nts NA (test code = 2931502669) 134 mmol/L 135-145 L K (test code = 2052688300) 3.8 mmol/L 3.5-5.0 CL (test code = 1788801031) 102 mmol/L 98-108 CO2 TOTAL (test code = 2861916057) 24 mmol/L 23-31 AGAP (test code = 7618377220) 8 2-16 BUN (test code = 1038442412) 9 mg/dL 7-23 GLUCOSE (test code = 3746251883) 88 mg/dL 70-110 CREATININE (test code = 2160-0) 0.65 mg/dL 0.50-1.04 TOTAL BILI (test code = 8982101236) 0.2 mg/dL 0.1-1.1 CALCIUM (test code = 1698377223) 9.8 mg/dL 8.6-10.6 T PROTEIN (test code = 2464397228) 8.0 g/dL 6.3-8.2 ALBUMIN (test code = 0915744873) 4.5 g/dL 3.5-5.0 ALK PHOS (test code = 1209147537) 72 U/L 34-122 ALTv (test code = 1742-6) 14 U/L 5-35 AST(SGOT) (test code = 3630823056) 24 U/L 13-40 eGFR (test code = 98413-8) 123.2 mL/min/1.73m2 CKD-EPI eGFR (2020). Assuming creatinine has been stable day-to-day for at least three months, the eGFR indicates Category G1 (>= 90 mL/min/1.73 m2) Lab Interpretation (test code = 60454-0) [facility]21[facility]* Test Item Value Reference Range Interpretation Comme nts LIPASE (test code = 4806628474) 86 U/L 0-220 Lab Interpretation (test cod e = 35670-4) [facility] QEEN8164-21-15 04:06:35* Test Item Value Reference Range Interpretation Comme nts WBC (test code = 6690-2) 7.81 4.30-11.10 RBC (test code = 789-8) 4.48 3.93-5.25 HGB (test code = 718-7) 12.2 g/dL 11.6-15.0 HCT (test code = 4544-3) 38.0 % 35.7-45.2 MCV (test code = 787-2) 84.8 fL 80.6-95.5 MCH (test code = 785-6) 27.2 pg 25.9-32.8 MCHC (test code = 786-4) 32.1 g/dL 31.6-35.1 RDW-SD (test code = 18447-5) 47.0 fL 39.0-49.9 RDW-CV (test code = 788-0) 15.1 % 12.0-15.5 PLT (test code = 777-3) 291 166-358 MPV (test code = 69708-2) 10.4 fL 9.5-12.9 NRBC/100 WBC (test code = 5875004134) 0.0 0.0-10.0 NRBC x10^3 (test code = 2889278241) See_Comment [Automated messa ge] The system which generated this result transmitted reference range: 10*3/?L. The reference range was not used to interpret this result as normal/abnormal. GRAN MAT (NEUT) % (test code = 770-8) 63.2 % IMM GRAN % (test code = 6186784156) 0.40 % LYMPH % (test code = 736-9) 24.6 % MONO % (test code = 5905-5) 6.0 % EOS % (test code = 713-8) 5.4 % BASO % (test code = 706-2) 0.4 % GRAN MAT x10^3(ANC) (test code = 7874663451) 4.94 10*3/uL 1.88-7.09 IMM GRAN x10^3 (test code = 0442815973) 0.03 10*3/uL 0.00-0.06 LYMPH x10^3 (test code = 731-0) 1.92 10*3/uL 1.32-3.29 MONO x10^3 (test code = 742-7) 0.47 10*3/uL 0.33-0.92 EOS x10^3 (test code = 711-2) 0.42 10*3/uL 0.03-0.39 H BASO x10^3 (test code = 704-7) 0.03 10*3/uL 0.01-0.07 Lab Interpretation (test code = 70738-0) Abnormal [facility] [id number] 03:19:00* Test Item Value Reference Range Interpretation Comme nts POCT PREG (test code = 1605) Positive On board controls acceptable with C Line (test code = 3574) Yes POCT PREG LOT # (test code = 3575) [id number] POCT PREG TEST DATE ( test code = 3576) 2026-01-01 Lab Interpretation (test cod e = 63891-1) Normal [facility] [id number] 18:58:00* Test Item Value Reference Range Interpretation Comme nts POCT PREG (test code = 1605) Negative On board controls acceptable with C Line (test code = 3574) Yes Lab Interpretation (test cod e = 69213-6) [facility] [id number] 00:00:00 * Test Item Value Reference Range Interpretation Comme nts SAGE SPECIES (test code = ) NEGATIVE G. VAGINALIS (test code = 71644) POSITIVE T. VAGINALIS (test code = 09014) NEGATIVE Jamari F AustinVAGINAL PATHOGENS DNA [id number] 00:00:00* Test Item Value Reference Range Interpretation Comme nts SAGE SPECIES (test code = ) NEGATIVE G. VAGINALIS (test code = 87806) POSITIVE T. VAGINALIS (test code = 54679) NEGATIVE Jamari F AustinVAGINAL PATHOGENS DNA [id number] 00:00:00* Test Item Value Reference Range Interpretation Comme nts SAGE SPECIES (test code = 06511) NEGATIVE G. VAGINALIS (test code = 77180) POSITIVE T. VAGINALIS (test code = 44540) NEGATIVE Jamari F AustinVAGINAL PATHOGENS DNA [id number] 00:00:00* Test Item Value Reference Range Interpretation Comme nts SAGE SPECIES (test code = 89479) NEGATIVE G. VAGINALIS (test code = 89807) POSITIVE T. VAGINALIS (test code = ) NEGATIVE Jamari ChavezVAGINAL PATHOGENS DNA [id number] 00:00:00* Test Item Value Reference Range Interpretation Comme nts SAGE SPECIES (test code = ) NEGATIVE G. VAGINALIS (test code = 44874) POSITIVE T. VAGINALIS (test code = 36316) NEGATIVE Jamari ChavezVAGINAL PATHOGENS DNA [id number] 00:00:00* Test Item Value Reference Range Interpretation Comme nts SAGE SPECIES (test code = ) NEGATIVE G. VAGINALIS (test code = 77865) POSITIVE T. VAGINALIS (test code = 44294) NEGATIVE Jamari Martinez AustinVAGINAL PATHOGENS DNA [id number] 00:00:00* Test Item Value Reference Range Interpretation Comme nts SAGE SPECIES (test code = ) NEGATIVE G. VAGINALIS (test code = 11110) POSITIVE T. VAGINALIS (test code = 20754) NEGATIVE Jamari Martinez AustinHIV 1/2 4TH GEN, RFLX [id number] 00:00:00* Test Item Value Reference Range Interpretation Comme nts HIV 1/2 4TH GEN, RFLX CONF ( test code = 3514) NON-REACTIVE Jamari Martinez [id number] 00:00:00* Test Item Value Reference Range Interpretation Comme nts RPR RESULT (test code = 3501) NON-REACTIVE RPR TITER (test code = 3500) NOT INDIC. TITER Jamari ChavezCT/NG, TMA, [id number] 00:00:00* Test Item Value Reference Range Interpretation Comme nts CHLAMYDIA, NAAT, URINE (test code = 87092) NEGATIVE GONORRHEA, NAAT, URINE (test code = 87915) NEGATIVE Jamari ChavezTRICHOMONAS, URINE, [id number] 00:00:00* Test Item Value Reference Range Interpretation Comme nts TRICHOMONAS, NAAT, URINE (te st code = 21644) NEGATIVE Jamari ChavezHERPES SIMPLEX [id number] 00:00:00* Test Item Value Reference Range Interpretation Comme nts HERPES SIMPLEX AB, IgM (test code = 59007) 0.29 INDEX Jamari Martinez AustinHERPES SIMPLEX 1/2 [id number] 00:00:00* Test Item Value Reference Range Interpretation Comme nts HERPES SIMPLEX 1 AB, IgG (te st code = 43348) 18.800 INDEX HERPES SIMPLEX 2 AB, IgG (te st code = 13544) 0.083 INDEX Jamari ChavezHIV 1/2 4TH GEN, RFLX [id number] 00:00:00* Test Item Value Reference Range Interpretation Comme nts HIV 1/2 4TH GEN, RFLX CONF ( test code = 3514) NON-REACTIVE Jamari Martinez [id number] 00:00:00* Test Item Value Reference Range Interpretation Comme nts RPR RESULT (test code = 3501) NON-REACTIVE RPR TITER (test code = 3500) NOT INDIC. TITER Jamari ChavezCT/NG, TMA, [id number] 00:00:00* Test Item Value Reference Range Interpretation Comme nts CHLAMYDIA, NAAT, URINE (test code = 15784) NEGATIVE GONORRHEA, NAAT, URINE (test code = 46247) NEGATIVE Jamari ChavezTRICHOMONAS, URINE, [id number] 00:00:00* Test Item Value Reference Range Interpretation Comme nts TRICHOMONAS, NAAT, URINE (te st code = 02793) NEGATIVE Jamari ChavezHERPES SIMPLEX [id number] 00:00:00* Test Item Value Reference Range Interpretation Comme nts HERPES SIMPLEX AB, IgM (test code = 13494) 0.29 INDEX Jamari ChavezHERPES SIMPLEX 1/2 [id number] 00:00:00* Test Item Value Reference Range Interpretation Comme nts HERPES SIMPLEX 1 AB, IgG (te st code = 18856) 18.800 INDEX HERPES SIMPLEX 2 AB, IgG (te st code = 83817) 0.083 INDEX Jamari ChavezHIV 1/2 4TH GEN, RFLX [id number] 00:00:00* Test Item Value Reference Range Interpretation Comme nts HIV 1/2 4TH GEN, RFLX CONF ( test code = 3514) NON-REACTIVE Jamari Martinez [id number] 00:00:00* Test Item Value Reference Range Interpretation Comme nts RPR RESULT (test code = 3501) NON-REACTIVE RPR TITER (test code = 3500) NOT INDIC. TITER Jamari Martinez AustinCT/NG, TMA, [id number] 00:00:00* Test Item Value Reference Range Interpretation Comme nts CHLAMYDIA, NAAT, URINE (test code = 56023) NEGATIVE GONORRHEA, NAAT, URINE (test code = 48745) NEGATIVE Jamari ChavezTRICHOMONAS, URINE, [id number] 00:00:00* Test Item Value Reference Range Interpretation Comme nts TRICHOMONAS, NAAT, URINE (te st code = 31656) NEGATIVE Jamari GaliciaPES SIMPLEX [id number] 00:00:00* Test Item Value Reference Range Interpretation Comme nts HERPES SIMPLEX AB, IgM (test code = 07816) 0.29 INDEX Jamari Martinez AustinHERPES SIMPLEX 1/2 [id number] 00:00:00* Test Item Value Reference Range Interpretation Comme nts HERPES SIMPLEX 1 AB, IgG (te st code = 27057) 18.800 INDEX HERPES SIMPLEX 2 AB, IgG (te st code = 64220) 0.083 INDEX Jamari ChavezHIV 1/2 4TH GEN, RFLX [id number] 00:00:00* Test Item Value Reference Range Interpretation Comme nts HIV 1/2 4TH GEN, RFLX CONF ( test code = 3514) NON-REACTIVE Jamari Martinez [id number] 00:00:00* Test Item Value Reference Range Interpretation Comme nts RPR RESULT (test code = 3501) NON-REACTIVE RPR TITER (test code = 3500) NOT INDIC. TITER Jamari Martinez AustinCT/NG, TMA, [id number] 00:00:00* Test Item Value Reference Range Interpretation Comme nts CHLAMYDIA, NAAT, URINE (test code = 29615) NEGATIVE GONORRHEA, NAAT, URINE (test code = 93462) NEGATIVE Jamari Martinez AustinTRICHOMONAS, URINE, [id number] 00:00:00* Test Item Value Reference Range Interpretation Comme nts TRICHOMONAS, NAAT, URINE (te st code = 79845) NEGATIVE Jamari ChavezHERPES SIMPLEX [id number] 00:00:00* Test Item Value Reference Range Interpretation Comme nts HERPES SIMPLEX AB, IgM (test code = 69776) 0.29 INDEX Jamari ChavezHERPES SIMPLEX 1/2 [id number] 00:00:00* Test Item Value Reference Range Interpretation Comme nts HERPES SIMPLEX 1 AB, IgG (te st code = 77438) 18.800 INDEX HERPES SIMPLEX 2 AB, IgG (te st code = 60530) 0.083 INDEX Jamari ChavezHIV 1/2 4TH GEN, RFLX [id number] 00:00:00* Test Item Value Reference Range Interpretation Comme nts HIV 1/2 4TH GEN, RFLX CONF ( test code = 3514) NON-REACTIVE Jamari [id number] 00:00:00* Test Item Value Reference Range Interpretation Comme nts RPR RESULT (test code = 3501) NON-REACTIVE RPR TITER (test code = 3500) NOT INDIC. TITER Jamari Martinez AustinCT/NG, TMA, [id number] 00:00:00* Test Item Value Reference Range Interpretation Comme nts CHLAMYDIA, NAAT, URINE (test code = 04968) NEGATIVE GONORRHEA, NAAT, URINE (test code = 75790) NEGATIVE Jamari ChavezTRICHOMONAS, URINE, [id number] 00:00:00* Test Item Value Reference Range Interpretation Comme nts TRICHOMONAS, NAAT, URINE (te st code = 55950) NEGATIVE Jamari ChavezHERPES SIMPLEX [id number] 00:00:00* Test Item Value Reference Range Interpretation Comme nts HERPES SIMPLEX AB, IgM (test code = 83377) 0.29 INDEX Jaamri ChavezHERPES SIMPLEX 1/2 [id number] 00:00:00* Test Item Value Reference Range Interpretation Comme nts HERPES SIMPLEX 1 AB, IgG (te st code = 48160) 18.800 INDEX HERPES SIMPLEX 2 AB, IgG (te st code = 93695) 0.083 INDEX Jamari ChavezHIV 1/2 4TH GEN, RFLX [id number] 00:00:00* Test Item Value Reference Range Interpretation Comme nts HIV 1/2 4TH GEN, RFLX CONF ( test code = 3514) NON-REACTIVE Jamari [id number] 00:00:00* Test Item Value Reference Range Interpretation Comme nts RPR RESULT (test code = 3501) NON-REACTIVE RPR TITER (test code = 3500) NOT INDIC. TITER Jamari Martinez AustinCT/NG, TMA, [id number] 00:00:00* Test Item Value Reference Range Interpretation Comme nts CHLAMYDIA, NAAT, URINE (test code = 88015) NEGATIVE GONORRHEA, NAAT, URINE (test code = 48987) NEGATIVE Jamari ChavezTRICHOMONAS, URINE, [id number] 00:00:00* Test Item Value Reference Range Interpretation Comme nts TRICHOMONAS, NAAT, URINE (te st code = 59823) NEGATIVE Jamari ChavezHERPES SIMPLEX [id number] 00:00:00* Test Item Value Reference Range Interpretation Comme nts HERPES SIMPLEX AB, IgM (test code = 20968) 0.29 INDEX Jamari ChavezHERPES SIMPLEX 1/2 [id number] 00:00:00* Test Item Value Reference Range Interpretation Comme nts HERPES SIMPLEX 1 AB, IgG (te st code = 60955) 18.800 INDEX HERPES SIMPLEX 2 AB, IgG (te st code = 78246) 0.083 INDEX Jamari ChavezHIV 1/2 4TH GEN, RFLX [id number] 00:00:00* Test Item Value Reference Range Interpretation Comme nts HIV 1/2 4TH GEN, RFLX CONF ( test code = 3514) NON-REACTIVE Jamari [id number] 00:00:00* Test Item Value Reference Range Interpretation Comme nts RPR RESULT (test code = 3501) NON-REACTIVE RPR TITER (test code = 3500) NOT INDIC. TITER Jamari ChavezCT/NG, TMA, [id number] 00:00:00* Test Item Value Reference Range Interpretation Comme nts CHLAMYDIA, NAAT, URINE (test code = 54077) NEGATIVE GONORRHEA, NAAT, URINE (test code = 12857) NEGATIVE Jamari ChavezTRICHOMONAS, URINE, [id number] 00:00:00* Test Item Value Reference Range Interpretation Comme nts TRICHOMONAS, NAAT, URINE (te st code = 73385) NEGATIVE Jamari ChavezHERPES SIMPLEX [id number] 00:00:00* Test Item Value Reference Range Interpretation Comme nts HERPES SIMPLEX AB, IgM (test code = 42318) 0.29 INDEX Jamari ChavezHERPES SIMPLEX 1/2 [id number] 00:00:00* Test Item Value Reference Range Interpretation Comme nts HERPES SIMPLEX 1 AB, IgG (te st code = 72395) 18.800 INDEX HERPES SIMPLEX 2 AB, IgG (te st code = 07739) 0.083 INDEX Jamari ChavezPAP TEST, THINPREP, [id number] 00:00:00* Test Item Value Reference Range Interpretation Comme nts SOURCE: (test code = 8001) Cervical/Endocervical SLIDES: (test code = 8011) 1 LMP: (test code = 8021) 08/04/2023 SPECIMEN ADEQUACY: (test code = 98470) (NOTE) INTERPRETATION: (test code = 71592) NILM/NO EPITH. ABNORMALITY;SEE BELOW OTHER COMMENTS: (test code = 8081) (NOTE) TRAFFIC LAW ATTORNEY: (test code = 8101) ALEIDA Garcia (ASCP) LOCATION: (test code = 56927) (NOTE) CPT: (test code = 8140) (NOTE) PDFE (test code = PDFReport) PDF Jamari ChavezTRICHOMONAS, URINE, [id number] 00:00:00* Test Item Value Reference Range Interpretation Comme nts TRICHOMONAS, NAAT, URINE (te st code = 95670) NEGATIVE Jamari Martinez AustinCT/NG, TMA, [id number] 00:00:00* Test Item Value Reference Range Interpretation Comme nts CHLAMYDIA, NAAT, URINE (test code = 36009) NEGATIVE GONORRHEA, NAAT, URINE (test code = 57924) NEGATIVE Jamari ChavezPAP TEST, THINPREP, [id number] 00:00:00* Test Item Value Reference Range Interpretation Comme nts SOURCE: (test code = 8001) Cervical/Endocervical SLIDES: (test code = 8011) 1 LMP: (test code = 8021) 08/04/2023 SPECIMEN ADEQUACY: (test code = 19935) (NOTE) INTERPRETATION: (test code = 55115) NILM/NO EPITH. ABNORMALITY;SEE BELOW OTHER COMMENTS: (test code = 8081) (NOTE) TRAFFIC LAW ATTORNEY: (test code = 8101) ALEIDA Garcia (ASCP) LOCATION: (test code = 40207) (NOTE) CPT: (test code = 8140) (NOTE) PDFE (test code = PDFReport) PDF Jamari F AustinTRICHOMONAS, URINE, [id number] 00:00:00* Test Item Value Reference Range Interpretation Comme nts TRICHOMONAS, NAAT, URINE (te st code = 17758) NEGATIVE Jamari Martinez AustinCT/NG, TMA, [id number] 00:00:00* Test Item Value Reference Range Interpretation Comme nts CHLAMYDIA, NAAT, URINE (test code = 95632) NEGATIVE GONORRHEA, NAAT, URINE (test code = 15515) NEGATIVE Jamari Matrinez AustinPAP TEST, THINPREP, [id number] 00:00:00* Test Item Value Reference Range Interpretation Comme nts SOURCE: (test code = 8001) Cervical/Endocervical SLIDES: (test code = 8011) 1 LMP: (test code = 8021) 08/04/2023 SPECIMEN ADEQUACY: (test code = 77104) (NOTE) INTERPRETATION: (test code = 26754) NILM/NO EPITH. ABNORMALITY;SEE BELOW OTHER COMMENTS: (test code = 8081) (NOTE) TRAFFIC LAW ATTORNEY: (test code = 8101) ALEIDA Garcia (ASCP) LOCATION: (test code = 07369) (NOTE) CPT: (test code = 8140) (NOTE) PDFE (test code = PDFReport) PDF Jamari Martinez AustinTRICHOMONAS, URINE, [id number] 00:00:00* Test Item Value Reference Range Interpretation Comme nts TRICHOMONAS, NAAT, URINE (te st code = 36403) NEGATIVE Jamari Martinez AustinCT/NG, TMA, [id number] 00:00:00* Test Item Value Reference Range Interpretation Comme nts CHLAMYDIA, NAAT, URINE (test code = 89353) NEGATIVE GONORRHEA, NAAT, URINE (test code = 81568) NEGATIVE Jamari F AustinPAP TEST, THINPREP, [id number] 00:00:00* Test Item Value Reference Range Interpretation Comme nts SOURCE: (test code = 8001) Cervical/Endocervical SLIDES: (test code = 8011) 1 LMP: (test code = 8021) 08/04/2023 SPECIMEN ADEQUACY: (test code = 65710) (NOTE) INTERPRETATION: (test code = 26278) NILM/NO EPITH. ABNORMALITY;SEE BELOW OTHER COMMENTS: (test code = 8081) (NOTE) TRAFFIC LAW ATTORNEY: (test code = 8101) ALEIDA Garcia (ASCP) LOCATION: (test code = 42767) (NOTE) CPT: (test code = 8140) (NOTE) PDFE (test code = PDFReport) PDF Jamari F AustinTRICHOMONAS, URINE, [id number] 00:00:00* Test Item Value Reference Range Interpretation Comme nts TRICHOMONAS, NAAT, URINE (te st code = 31708) NEGATIVE Jamari F AustinCT/NG, TMA, [id number] 00:00:00* Test Item Value Reference Range Interpretation Comme nts CHLAMYDIA, NAAT, URINE (test code = 57757) NEGATIVE GONORRHEA, NAAT, URINE (test code = 75123) NEGATIVE Jamari F AustinPAP TEST, THINPREP, [id number] 00:00:00* Test Item Value Reference Range Interpretation Comme nts SOURCE: (test code = 8001) Cervical/Endocervical SLIDES: (test code = 8011) 1 LMP: (test code = 8021) 08/04/2023 SPECIMEN ADEQUACY: (test code = 65196) (NOTE) INTERPRETATION: (test code = 69091) NILM/NO EPITH. ABNORMALITY;SEE BELOW OTHER COMMENTS: (test code = 8081) (NOTE) TRAFFIC LAW ATTORNEY: (test code = 8101) ALEIDA Garcia (ASCP) LOCATION: (test code = 96132) (NOTE) CPT: (test code = 8140) (NOTE) PDFE (test code = PDFReport) PDF Jamari F AustinTRICHOMONAS, URINE, [id number] 00:00:00* Test Item Value Reference Range Interpretation Comme nts TRICHOMONAS, NAAT, URINE (te st code = 19460) NEGATIVE Jamari F AustinCT/NG, TMA, [id number] 00:00:00* Test Item Value Reference Range Interpretation Comme nts CHLAMYDIA, NAAT, URINE (test code = 59551) NEGATIVE GONORRHEA, NAAT, URINE (test code = 75821) NEGATIVE Jamari F AustinPAP TEST, THINPREP, [id number] 00:00:00* Test Item Value Reference Range Interpretation Comme nts SOURCE: (test code = 8001) Cervical/Endocervical SLIDES: (test code = 8011) 1 LMP: (test code = 8021) 08/04/2023 SPECIMEN ADEQUACY: (test code = 69858) (NOTE) INTERPRETATION: (test code = 90753) NILM/NO EPITH. ABNORMALITY;SEE BELOW OTHER COMMENTS: (test code = 8081) (NOTE) TRAFFIC LAW ATTORNEY: (test code = 8101) ALEIDA Garcia (ASCP) LOCATION: (test code = 54649) (NOTE) CPT: (test code = 8140) (NOTE) PDFE (test code = PDFReport) PDF Jamari Martinez AustinTRICHOMONAS, URINE, [id number] 00:00:00* Test Item Value Reference Range Interpretation Comme nts TRICHOMONAS, NAAT, URINE (te st code = 88942) NEGATIVE Jamari Martinez AustinCT/NG, TMA, [id number] 00:00:00* Test Item Value Reference Range Interpretation Comme nts CHLAMYDIA, NAAT, URINE (test code = 78862) NEGATIVE GONORRHEA, NAAT, URINE (test code = 35077) NEGATIVE Jamari ChavezPAP TEST, THINPREP, [id number] 00:00:00* Test Item Value Reference Range Interpretation Comme nts SOURCE: (test code = 8001) Cervical/Endocervical SLIDES: (test code = 8011) 1 LMP: (test code = 8021) 08/04/2023 SPECIMEN ADEQUACY: (test code = 93939) (NOTE) INTERPRETATION: (test code = 42786) NILM/NO EPITH. ABNORMALITY;SEE BELOW OTHER COMMENTS: (test code = 8081) (NOTE) TRAFFIC LAW ATTORNEY: (test code = 8101) ALEIDA Garcia (ASCP) LOCATION: (test code = 96628) (NOTE) CPT: (test code = 8140) (NOTE) PDFE (test code = PDFReport) PDF Jamari Martinez AustinTRICHOMONAS, URINE, [id number] 00:00:00* Test Item Value Reference Range Interpretation Comme nts TRICHOMONAS, NAAT, URINE (te st code = 11150) NEGATIVE Jamari Martinez AustinCT/NG, TMA, [id number] 00:00:00* Test Item Value Reference Range Interpretation Comme nts CHLAMYDIA, NAAT, URINE (test code = 44467) NEGATIVE GONORRHEA, NAAT, URINE (test code = 36487) NEGATIVE Jamari Martinez AustinVAGINAL PATHOGENS DNA [id number] 00:00:00* Test Item Value Reference Range Interpretation Comme nts SAGE SPECIES (test code = 82387) NEGATIVE G. VAGINALIS (test code = 38816) POSITIVE T. VAGINALIS (test code = 16466) NEGATIVE Jamari Martinez AustinVAGINAL PATHOGENS DNA [id number] 00:00:00* Test Item Value Reference Range Interpretation Comme nts SAGE SPECIES (test code = 30552) NEGATIVE G. VAGINALIS (test code = 18989) POSITIVE T. VAGINALIS (test code = 06612) NEGATIVE Jamari Martinez AustinVAGINAL PATHOGENS DNA [id number] 00:00:00* Test Item Value Reference Range Interpretation Comme nts SAGE SPECIES (test code = 77269) NEGATIVE G. VAGINALIS (test code = 54641) POSITIVE T. VAGINALIS (test code = 69820) NEGATIVE Jamari Martinez AustinVAGINAL PATHOGENS DNA [id number] 00:00:00* Test Item Value Reference Range Interpretation Comme nts SAGE SPECIES (test code = 40622) NEGATIVE G. VAGINALIS (test code = 03756) POSITIVE T. VAGINALIS (test code = 15516) NEGATIVE Jamari Martinez AustinVAGINAL PATHOGENS DNA [id number] 00:00:00* Test Item Value Reference Range Interpretation Comme nts SAGE SPECIES (test code = 23115) NEGATIVE G. VAGINALIS (test code = 57772) POSITIVE T. VAGINALIS (test code = 03858) NEGATIVE Jamari Martinez AustinVAGINAL PATHOGENS DNA [id number] 00:00:00* Test Item Value Reference Range Interpretation Comme nts SAGE SPECIES (test code = 41802) NEGATIVE G. VAGINALIS (test code = 67612) POSITIVE T. VAGINALIS (test code = 10649) NEGATIVE Jamari Martinez AustinVAGINAL PATHOGENS DNA [id number] 00:00:00* Test Item Value Reference Range Interpretation Comme nts SAGE SPECIES (test code = 83520) NEGATIVE G. VAGINALIS (test code = ) POSITIVE T. VAGINALIS (test code = ) NEGATIVE Jamari Martinez AustinPOCT [id number] 20:11:00* Test Item Value Reference Range Interpretation Comme nts POCT PREG (test code = 1605) Negative On board controls acceptable with C Line (test code = 3574) Yes POCT PREG LOT # (test code = 3575) POCT PREG TEST DATE (test code = 3576) MARCO (test code = MARCO) accurate developme nt and interpretation of all internal controls Lab Interpretation (test code = 66184-4) Normal [facility] [id number] 16:01:00* Test Item Value Reference Range Interpretation Comme nts POCT PREG (test code = 1605) Negative On board controls acceptable with C Line (test code = 3574) Yes POCT PREG LOT # (test code = 3575) POCT PREG TEST DATE (test code = 3576) MARCO (test code = MARCO) accurate developme nt and interpretation of all internal controls [facility] [id number] 16:01:00* Test Item Value Reference Range Interpretation Comme nts POCT PREG (test code = 1605) Negative On board controls acceptable with C Line (test code = 3574) Yes POCT PREG LOT # (test code = 3575) POCT PREG TEST DATE (test code = 3576) MARCO (test code = MARCO) accurate developme nt and interpretation of all internal controls [facility] URINALYSIS W SPECIFIC [id number] 16:00:00* Test Item Value Reference Range Interpretation Comme nts POCT U SP GRAV (test code = 3255) 1.005 mg/dl 1.005-1.025 POCT PH U (test code = 3254) 5.0 mg/dl 5-8 POCT U LEUK EST (test code = 3263) 1+ Negative - Negative POCT U NIT (test code = 3262) negative Negative - Negative POCT U PROT (test code = 3259) negative Negative - Negative POCT U GLU (test code = 3256) normal Negative - Negative POCT U KETONE (test code = 3258) negative Negative - Negative POCT U UROBILI (test code = 3260) normal 0.2-1 POCT U BILI (test code = 3261) negative Negative - Negative POCT U BLD (test code = 3257) about 50 Negative - Negative POCT U COLOR (test code = 3266) light yellow POCT U APPEAR (test code = 3267) clear MARCO (test code = MARCO) accurate development and interpretation of all internal [facility] [id number] 16:00:00* Test Item Value Reference Range Interpretation Comme nts POCT U SP GRAV (test code = 3255) 1.005 mg/dl 1.005-1.025 POCT PH U (test code = 3254) 5.0 mg/dl 5-8 POCT U LEUK EST (test code = 3263) 1+ Negative - Negative POCT U NIT (test code = 3262) negative Negative - Negative POCT U PROT (test code = 3259) negative Negative - Negative POCT U GLU (test code = 3256) normal Negative - Negative POCT U KETONE (test code = 3258) negative Negative - Negative POCT U UROBILI (test code = 3260) normal 0.2-1 POCT U BILI (test code = 3261) negative Negative - Negative POCT U BLD (test code = 3257) about 50 Negative - Negative POCT U COLOR (test code = 3266) light yellow POCT U APPEAR (test code = 3267) clear MARCO (test code = MARCO) accurate development and interpretation of all internal controls [facility] Notes Date/Time Note Provider Source 2024-10-01 00:51:58 Pt given printed and verbal discharge instructions regarding ABD pain in early , encouraged hydration, Pt verbalized understanding of instructions, pt awake alert oriented, resp reg unlabored, skin w/d, color appropriate for race, moves all ext well,pt encouraged to follow up with pcp and OBGYN Advised to seek medical attention for new/prolonged/worsening of symptoms, No adverse reaction to meds given in ER noted upon discharge PIV d'cd, dressing to site, catheter in tact. Awake, alert oriented, resp reg unlabored, skin w/d, pt leaving amb with steady gait, in no apparent distress, Pablo Grimes RN [facility] 2024-09-30 22:58:03 Nurse Report Report given to CHRIS Grimes. Chief complaint, assessment findings, infusion verify and orders reviewed. Plan of care discussed at bedside with patient and both nurses. Patient/family members verbalized understanding. BELKIS HARRISON RN Belkis Harrison RN [facility] [facility] 2024-09-30 21:33:50 Pt given urine cup and placed back into lobby with instructions for collecting urine sample. [facility] 2024-09-30 21:27:21 Pt arrived ambulatory without assist. Pt boyfriend with her, okay to discuss care in front of him. Pt c/o "cramping" and "itchy." Pt has not seen a AUTOMOTIVE TIRE TESTER A1 LMP 08/20/2024 Liseth Moore RN [facility] 2024-09-30 21:18:00 [facility] Emergency Department Note Patient Name: Gómez Wolff Date of : 1995 28 year old female Treatment Room: Room/bed info not found Primary Care Physician: Alma Rosa Busby Patient Escorted by: Family [5] Mode of Arrival: Personal means [1] EMS Treatment Prior to ED Arrival: SOLUTIONS MANAGER treatment: None Travel and Exposure Screening: Symptoms Does patient have any of these symptoms?: (not recorded) Exposure Screening Has patient had contact with someone with a communicable disease in the last month?: (not recorded) Diseases exposed to:: (not recorded) Is Patient ?: (not recorded) Exposure Date: (not recorded) Chief Complaint: Chief Complaint Patient presents with CRAMPING Vaginal Problem History of Present Illness: Onset yesterday with pelvic pain, "cramping", episodic, no definitive aggravating or relieving factors. No vaginal bleeding or discharge. (+) urinary frequency. No dysuria. No flank pain. No fever. (+) nausea without emesis. No diarrhea. (+) home test 2 weeks ago. Last menstrual period ended 08/20/2024. With this , she is A1 (elective). Last born 05/2021. History provided by: Patient and significant other (boyfriend) Past Medical History/Immunizations: Past Medical History: Diagnosis Date Abnormal glandular Papanicolaou smear of cervix 07/14/2021 Anemia of mother in , antepartum 05/28/2021 Eczema Genital herpes simplex 07/12/2015 Tetanus received in last 5 years: Yes Allergies: No Known Allergies Past Social History: Tobacco Use Never smoked or used smokeless tobacco. Alcohol Use Not Currently. Drug Use Yes; Marijuana. Sexual Activity Sexually active; Partners: Male; Control/Protection: Condom. Comments: last sexual intercourse 07/13/2021 Past Surgical History: History reviewed. No pertinent surgical history. Review of Systems: Review of Systems Constitutional: Negative. HENT: Negative. Eyes: Negative. Respiratory: Negative. Cardiovascular: Negative. Gastrointestinal: Positive for nausea. Negative for abdominal pain, diarrhea and vomiting. Genitourinary: Positive for frequency and pelvic pain. Negative for dysuria, flank pain, vaginal bleeding, vaginal discharge and vaginal pain. Musculoskeletal: Negative. Skin: Negative. Neurological: Negative. Psychiatric/Behavioral: Negative. Physical Exam: ED Triage Vitals [09/30/240] Weight 72.6 kg (160 lb) Actual or estimated Estimated by patient/family report Height 1.549 m (5' 1") BP (!) 141/79 Pulse 83 Resp 20 Temp 37 ?C (98.6 ?F) Temp source Oral SpO2 100 % Measured on Room air Physical Exam Vitals and nursing note reviewed. Constitutional: General: She is not in acute distress. Appearance: Normal appearance. She is not ill-appearing, toxic-appearing or diaphoretic. HENT: Head: Normocephalic and atraumatic. Right Ear: External ear normal. Left Ear: External ear normal. Nose: Nose normal. Mouth/Throat: Mouth: Mucous membranes are moist. Eyes: Extraocular Movements: Extraocular movements intact. Conjunctiva/sclera: Conjunctivae normal. Cardiovascular: Rate and Rhythm: Normal rate. Pulmonary: Effort: Pulmonary effort is normal. No respiratory distress. Abdominal: General: There is no distension. Palpations: Abdomen is soft. Tenderness: There is abdominal tenderness (suprapubic). There is no right CVA tenderness or left CVA tenderness. Musculoskeletal: General: Normal range of motion. Cervical back: Normal range of motion. Skin: General: Skin is warm and dry. Neurological: General: No focal deficit present. Mental Status: She is alert. Psychiatric: Mood and Affect: Mood normal. Behavior: Behavior normal. Thought Content: Thought content normal. Judgment: Judgment normal. Radiology: No orders to display Lab Results: Lab Results - No data to display EKG: If EKG completed, see Procedure Note. Orders and Treatments: Orders Placed This Encounter Procedures US FIRST TRIMESTER LESS THAN 14 WEEKS WITH TRANSVAGINAL CBC WITH DIFF COMP. METABOLIC PANEL (47163) LIPASE URINALYSIS POCT TEST TOTAL BHCG (QUANTITATIVE) No orders of the defined types were placed in this encounter. First Provider Eval: ED Events Date/Time Event User Comments 09/30/242125 Medical Screening Begins SUHAS GARCIA MD -- 09/30/242125 First Provider Evaluation SUHAS GARCIA MD -- ED COURSE Diagnosis/Impression as of 10/01/24 0041 Pelvic pain Nausea 6 weeks gestation of Procedures: Procedures MDM: Medical Decision Making Primary impression: pelvic pain Secondary impression: , nausea Differential Diagnoses, including but not limited to: electrolyte / glucose abnl, anemia, ARIANNE, cystitis, , ectopic, Problems Addressed: Nausea: acute illness or injury Pelvic pain: acute illness or injury Amount and/or Complexity of Data Reviewed Independent Historian: Details: self Labs: ordered. Decision-making details documented in ED Course. Radiology: ordered. Decision-making details documented in ED Course. Risk Risk Details: Care transferred to Dr Calix at 2300 with studies and disposition pending. Flowsheet Documentation: Scoring Tools: No data recorded Disposition/Condition: ED Disposition None Discharge Medications: Patient's Medications START taking these medications No medications on file CONTINUE taking these medications which have NOT CHANGED FLUTICASONE PROPIONATE 50 MCG/ACTUATION NASAL SPRAY Use 2 Sprays in each nostril daily. LORATADINE 10 MG TABLET Take 1 tablet by mouth in the morning. NUVARING 0.12-0.015 MG/24 HR VAGINAL INSERT Insert 1 Each into vagina once every month. Insert vaginally and leave in place for 3 consecutive weeks, then remove for 1 week. OLOPATADINE (PATADAY) 0.2 % OPHTHALMIC DROPS Place 1 Drop in each eye in the morning. ONDANSETRON 4 MG DISINTEGRATING TABLET Take 1 tablet by mouth every 8 (eight) hours as needed for Nausea and Vomiting (N/V). START taking Modified Medications as Prescribed No medications on file STOP taking these medications No medications on file Follow-up: Care transferred to Dr Calix at 2300 with studies and disposition pending. Electronically signed by: Suhas Garcia MD 09/30/242219 [facility] 2024-09-30 21:18:00 Patient Care assumed at shift change pending prior to disposition: Imaging Time of Transfer of Care: 12:41 AM Off-going Physician:Jose Summary: Gómez Wolff is a 28 year old female presenting with chief complaint of nausea an abdominal pain, pending US to r/o ectopic. Current interventions: Medications - No data to display Results: Labs Reviewed CBC WITH DIFF - Abnormal; Notable for the following components: Result Value EOS x10 3 0.42 (*) All other components within normal limits COMP. METABOLIC PANEL (18013) - Abnormal; Notable for the following components: NA 134 (*) All other components within normal limits URINALYSIS - Abnormal; Notable for the following components: BACTERIA Few (*) MUCOUS Marked (*) HYAL CAST 3 (*) All other components within normal limits LIPASE - Normal POCT TEST - Normal TOTAL BETA HCG ASSAY Narrative: Gestational Age Range (mIU/mL) 1-10 Weeks [id number] 11-15 Weeks 30194-101794 16-22 Weeks [id number] 23-40 Weeks [id number] Biotin has been reported to cause a negative bias, interpret results relative to patient's use of biotin. US FIRST TRIMESTER LESS THAN 14 WEEKS WITH TRANSVAGINAL Final Result Impression: 1. Single viable intrauterine gestation with estimated gestational age of 6 weeks and 1 day by crown-rump length. 2. No evidence of subchorionic hemorrhage. RL: [id number] End of Report Additional Notes: Diagnosis/Impression as of 10/01/24 0041 Pelvic pain Nausea 6 weeks gestation of Medical Decision Making US shows no ectopic- 6 weeks fetus discharged Problems Addressed: 6 weeks gestation of : acute illness or injury with systemic symptoms Nausea: acute illness or injury Pelvic pain: acute illness or injury Amount and/or Complexity of Data Reviewed Labs: ordered. Decision-making details documented in ED Course. Radiology: ordered. Decision-making details documented in ED Course. Disposition: Discharged Home Social Determinants of Health: none. Diagnoses that have been ruled out: None Diagnoses that are still under consideration: None Final diagnoses: Pelvic pain Nausea 6 weeks gestation of @EDDX@ Le Calix DO 10/01/2441 [facility]2024-08-06 00:00:00 [facility]2024-05-13 00:00:00 [facility]2024-05-06 15:11:20 Pt discharged with diagnosis of UTI, pharyngitis, and N/V. Printed and verbal instructions reviewed with and given to patient. Prescriptions given x 2. Pt verbalized understanding of teaching, medications, and recommended follow-up. Denies questions or concerns at this time. Pt ambulatory at discharge. Appears in no apparent distress. No ataxia noted. T Columba Mack RNBl[facility] [id number] 14:51:00 Pt given water for PO challenge. [facility] [id number] 13:21:43 Gómez Wolff is a 28 year old female c/o feeling nausea for 3 three days and headache for 4 days, woke up with sore throat today [facility]inos [id number]00 Jamari [facility]2024-02-27 00:00:00 Jamari [facility]2023-12-20 00:00:00 [facility]2023-09-15 00:00:00 [facility]2023-08-10 08:52:59 Noted. [place] [facility]2023-08-10 08:44:48 Called patient and scheduled wwe on 07/20/23 at 1:15 pm. Patient stating will go to Urgent Care for symptoms she is having at this time and keep appointmentfor wwe on 07/20/23. Patient notified. Suzanne HowardBlanchard [facility] Health System [facility] [id number] 13:21:15 Pt is requesting call back, states is having irritation and discharge. Please call [phone] (home) XANDER SimsBlanchard [facility]
[2024-10-06 15:37] LABS: Absolute Eosinophils 0.3 K/uL (0-0.5); Absolute Lymphocytes (CBC) 1.5 K/uL (0.7-4.9); Absolute Monocytes 0.6 K/uL (0.1-1.3); Basophils % 0.3 % (0-1.3); Eosinophils % 4.5 % (0-4.4); Hematocrit 36.6 % (36.0-45.0); Hemoglobin 11.9 g/dL (12.0-15.0); Lymphocytes % 19.6 % (15.3-44.8); MCH 27.3 pg (27.0-35.0); MCHC 32.5 g/dL (32.0-36.0); MCV 84.1 fL (80-100); MPV 8.1 fL (7.6-11.3); Monocytes % 8.7 % (3.3-12.3); Neutrophils % 66.9 % (41.7-73.7); Platelets 284 thou/uL (152-406); RBC Red Blood Cell Count 4.35 M/uL (3.86-4.86); Red Cell Distribution Width 15.7 % (12.1-15.2)
[2024-10-06 15:59] LABS: Albumin 3.4 g/dL (3.4-5.0); Albumin/Globulin Ratio 0.8 (1.1-1.8); Alkaline Phosphatase 64 U/L (45-117); Anion Gap 9.1 mEq/L (5.0-15.0); BUN Blood Urea Nitrogen 8 mg/dL (7-18); Bicarbonate 25 mEq/L (21-32); Bilirubin Total 0.3 mg/dL (0.2-1.0); Globulin 4.1 g/dL (2.3-3.5); Glomerular Filtration Rate 121 ml/min (=/>90); Glucose Level 84 mg/dL (74-106); Lipase 26 U/L (13-75); Protein, Total 7.5 g/dL (6.4-8.2); Sodium Level 136 mEq/L (136-145)
[2024-10-06 16:01] LABS: ALT/SGPT < 14 U/L (13-56); AST/SGOT 17 U/L (15-37); Potassium 4.1 mEq/L (3.5-5.1)
[2024-10-06 16:02] LABS: Magnesium 2.1 mg/dL (1.6-2.4)
[2024-10-06] MEDS ORDERED: FAMOTIDINE 20 MG/2 ML VIAL IV ONE (16:06)
[2024-10-06] MEDS ORDERED: NA CHLORIDE 0.9% 1,000 ML ONE (16:06)
[2024-10-06] MEDS ORDERED: ONDANSETRON 4 MG/2 ML VIAL ONE (16:06)
[2024-10-06 18:05] LABS: Specific Gravity 1.024 (1.005-1.030)
[2024-10-06 18:06] LABS: Specific Gravity 1.024 (1.005-1.030); Urine Bilirubin NEGATIVE (Negative); Urine Blood Negative (Negative); Urine Clarity Turbid (Clear); Urine Color Light-Yellow (Yellow); Urine Glucose NEGATIVE (Negative); Urine Ketones TRACE (Negative); Urine Microscopic Reflex YN NO UMIC; Urine Nitrite NEGATIVE (Negative); Urine Protein NEGATIVE (Negative); Urine Urobilinogen Normal (Normal); Urine pH 5.5 (5.0-7.0)
--- NOTE | 2024-10-06 19:05 | RAD REPORT ---
EXAM:TRANSVAG OB CLINICAL HISTORY: with abdominal pain and vomiting TECHNIQUE: Endovaginal sonography performed COMPARISON: None FINDINGS: The uterus measures 10 x 6 x 6 cm. Within the endometrium is a gestational sac. Within this is a yolk sac and pole measuring 6 mm. Cardiac activity and 24 bpm. Left ovary normal in size and echotexture. Right ovary not seen secondary to overlying bowel gas. The right and left adnexa unremarkable No significant free fluid. 1 cm subchorionic hemorrhage IMPRESSION: Single live intrauterine with an estimated gestational age 7 weeks 0 days MELI 05/25/2025 1 cm subchorionic hemorrhage
--- NOTE | 2024-10-06 19:16 | EDPHYS ---
Physician Documentation [facility] Name: Nicole Wolff Age: 28 yrs Sex: Female : 1995 Arrival Date: 10/06/2024 Time: 13:56 Bed 10 Private MD: ED Physician Mc Longoria HPI: 10/06 14:45 This 28 yrs old Black Female presents to ER via Ambulatory with complaints of Vomiting cp - 7wks preg. 14:45 The patient presents to the emergency department with nausea and vomiting, that started cp for past several week vomiting has been intermittent, now persistent for past 2 days. patient reports she is 7 weeks , . 14:45 course: care: private OB physician, Leakage of Fluid: none cp appreciated, Ultrasound: the patient had an ultrasound. Associated signs and symptoms: Pertinent positives: abdominal pain, Pertinent negatives: diarrhea, dysuria, fever, ruptured membranes, vaginal bleeding. 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 LMP 08/18/2024, unknown iw 14:47 5, Living 3, unknown iw Historical: - Allergies: 14:47 No Known Allergies; iw - Home Meds: 14:47 None [Active]; iw - PMHx: 14:47 None; iw - PSHx: 14:47 None; iw ROS: 14:50 Constitutional: Positive for poor PO intake, Negative for body aches, chills, fever, cp 14:50 Eyes: Negative for injury, pain, redness, and discharge, cp 14:50 ENT: Negative for drainage from ear(s), ear pain, sore throat, difficulty swallowing, difficulty handling secretions, 14:50 Cardiovascular: Negative for chest pain, edema, palpitations, 14:50 Respiratory: Negative for cough, shortness of breath, wheezing, 14:50 Abdomen/GI: Positive for abdominal pain, nausea and vomiting, anorexia, Negative for diarrhea, constipation, hematemesis, black/tarry stool, rectal bleeding, 14:50 Back: Negative for pain at rest, pain with movement, 14:50 Neuro: Negative for altered mental status, numbness, 14:50 All other systems are negative, Exam: 14:55 Constitutional: The patient appears in no acute distress, alert, awake, non-toxic, well cp developed, well nourished, uncomfortable, 14:55 Head/Face: Normocephalic, atraumatic. cp 14:55 Eyes: Periorbital structures: appear normal, Conjunctiva: normal, no exudate, no injection, Sclera: no appreciated abnormality, Lids and lashes: appear normal, bilaterally, 14:55 ENT: External ear(s): are unremarkable, Nose: is normal, Mouth: Lips: moist, Oral mucosa: pink and intact, moist, Posterior pharynx: Airway: no evidence of obstruction, patent, 14:55 Chest/axilla: Inspection: normal, 14:55 Cardiovascular: Rate: normal, Rhythm: regular, 14:55 Respiratory: the patient does not display signs of respiratory distress, Respirations: normal, no use of accessory muscles, no retractions, labored breathing, is not present, Breath sounds: are clear throughout, no decreased breath sounds, no stridor, no wheezing, 14:55 Abdomen/GI: Inspection: abdomen appears normal, Bowel sounds: active, all quadrants, Palpation: soft, in all quadrants, mild abdominal tenderness, in all quadrants, rebound tenderness, is not appreciated, 14:55 Back: pain, is absent, ROM is normal, 14:55 Neuro: Orientation: to person, place \T\ time. Mentation: is normal, Vital Signs: 14:46 BP 122 / 74; Pulse 87; Resp 16; Temp 98; Pulse Ox 100% on R/A; Weight 72.57 kg; Height iw 5 ft. 1 in. ; Pain 0/10; 16:20 BP 126 / 78; Pulse 70; Resp 18 S; Pulse Ox 100% on R/A; aa5 17:23 BP 115 / 69; Pulse 71; Resp 16 S; Pulse Ox 98% on R/A; aa5 14:46 Body Mass Index 30.23 (72.57 kg, 154.94 cm) iw 14:46 Pain Scale: Adult iw MDM: 14:48 Medical Screening Exam initiated cp 19:16 Data reviewed: vital signs, nurses notes, lab test result(s), radiologic studies, cp ultrasound, and as a result, I will discharge patient. 19:16 Differential diagnosis: dehydration, threatened miscarriage, uti. Consideration of cp Admission/Observation Escalation of care including admission/observation considered. I considered the following discharge prescriptions or medication management in the emergency department Medications were administered in the Emergency Department. See MAR. Counseling: I had a detailed discussion with the patient and/or guardian regarding the historical points, exam findings, and any diagnostic results supporting the discharge/admit diagnosis, lab results, radiology results, the need for outpatient follow up, an OB/Gyne specialist, to return to the emergency department if symptoms worsen or persist or if there are any questions or concerns that arise at home. Response to treatment: the patient's symptoms have markedly improved after treatment, pain and nausea improved, vomiting resolved, and as a result, I will discharge patient. 10/06 14:43 Order name: CBC with Diff; Complete Time: 16:35 cp 10/06 16:35 Interpretation: Normal except: HGB 11.9; RDW 15.7; EOSINOPHIL % 4.5. cp 10/06 14:43 Order name: CMP; Complete Time: 16:35 cp 10/06 14:43 Order name: Lipase; Complete Time: 16:35 cp 10/06 14:43 Order name: Test, Urine; Complete Time: 18:24 cp 10/06 14:43 Order name: Urinalysis w/ reflexes; Complete Time: 18:24 cp 10/06 14:43 Order name: Magnesium; Complete Time: 16:35 cp 10/06 17:49 Order name: TRANSVAG OB; Complete Time: 19:07 EDMS 10/06 14:43 Order name: IV Saline Lock; Complete Time: 15:32 cp 10/06 14:43 Order name: Labs collected and sent; Complete Time: 15:32 cp 10/06 18:57 Order name: PO challenge; Complete Time: 19:03 cp Administered Medications: 16:17 Drug: Famotidine IVP 20 mg IVP once; dilute with 10 mL 0.9% NaCl; give over 2 minutes aa5 Route: IVP; Site: left antecubital; 16:20 Follow up: Response: No adverse reaction aa5 16:18 Drug: Ondansetron IVP 4 mg IVP once; over 2 minutes Route: IVP; Site: left antecubital; aa5 16:20 Follow up: Response: No adverse reaction aa5 16:18 Drug: NS 0.9% IV 1000 ml IV at 1 bolus Per protocol; to be given as a bolus over 60 aa5 minutes Route: IV; Rate: 1 bolus; Site: left antecubital; 17:18 Follow up: IV Status: Completed infusion; IV Intake: 1000ml aa5 Disposition: 16:34 I was immediately available on-site in the Emergency Department for consultation in the ms3 care of the patient. Disposition Summary: 10/06/24 19:15 Discharge Ordered Notes: Location: Home cp Problem: new cp Symptoms: have improved cp Condition: Stable cp Diagnosis - related conditions, unspecified, first trimester cp - Nausea with vomiting, unspecified cp - Subchorionic Hemorrhage cp Followup: cp - With: Private Physician - When: 1 week - Reason: Recheck today's complaints Discharge Instructions: - Discharge Summary Sheet cp - Abdominal Pain During cp - Nausea and Vomiting, Adult cp - Subchorionic Hematoma cp - First Trimester of cp - Activity Restriction During cp Forms: - Medication Reconciliation Form cp - Antibiotic Education cp - Prescription Opioid Use cp - Patient Portal Instructions cp - Leadership Thank You Letter cp - Work release form tl4 Prescriptions: - promethazine 25 mg Oral Tablet - take 1 tablet ORAL route every 6 hours As needed; 20 tablet; Refills: 0, cp Product Selection Permitted Signatures: Dispatcher [employer] Luda Cox RN RN iw Penny Coronado RN RN aa5 Vinh Celestin PA PA cp Mc Longoria DO DO ms3 Corrections: (The following items were deleted from the chart) 14:43 14:43 CBC+H.LAB.BRZ ordered. EDMS EDMS 14:43 14:43 COMPREHENSIVE METABOLIC PANEL+C.LAB.BRZ ordered. EDMS EDMS 14:43 14:43 LIPASE+C.LAB.BRZ ordered. EDMS EDMS 14:43 14:43 Test, Urine+UC.LAB.BRZ ordered. EDMS EDMS 14:43 14:43 Urinalysis+U.LAB.BRZ ordered. EDMS EDMS 14:43 14:43 MAGNESIUM+C.LAB.BRZ ordered. EDMS EDMS 17:49 17:39 OB Limited+US.RAD.BRZ ordered. EDMS EDMS
--- NOTE | 2024-10-06 19:16 | ER ---
Nurse's Notes [facility] Name: Nicole Wolff Age: 28 yrs Sex: Female : 1995 Arrival Date: 10/06/2024 Time: 13:56 Bed 10 Private MD: Diagnosis: related conditions, unspecified, first trimester;Nausea with vomiting, unspecified;Subchorionic Hemorrhage Presentation: 10/06 14:46 Chief complaint: Patient states: vomiting since yesterday , feels dehydrated, is 7 iw weeks . Coronavirus screen: Client presents with at least one sign or symptom that may indicate coronavirus-19. Ebola Screen: No symptoms or risks identified at this time. Initial Sepsis Screen: Does the patient meet any 2 criteria? No. Patient's initial sepsis screen is negative. Does the patient have a suspected source of infection? No. Patient's initial sepsis screen is negative. Risk Assessment: Do you want to hurt yourself or someone else? Patient reports no desire to harm self or others. Onset of symptoms was October 05, 2024. 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 LMP 08/18/2024, unknown iw 14:47 5, Living 3, unknown iw Historical: - Allergies: 14:47 No Known Allergies; iw - Home Meds: 14:47 None [Active]; iw - PMHx: 14:47 None; iw - PSHx: 14:47 None; iw Screenin:45 [facility] ED Fall Risk Assessment (Adult) History of falling in the last 3 months, tl4 including since admission No falls in past 3 months (0 pts) Confusion or Disorientation No (0 pts) Intoxicated or Sedated No (0 pts) Impaired Gait No (0 pts) Mobility Assist Device Used No (0 pt) Altered Elimination No (0 pt) Score/Fall Risk Level 0 - 2 = Low Risk Oriented to surroundings, Maintained a safe environment, Educated pt \T\ family on fall prevention, incl call for assistance when getting out of bed, Assessed \T\ reinforced patient's understanding of fall precautions. Abuse screen: Denies threats or abuse. Denies injuries from another. Nutritional screening: No deficits noted. Tuberculosis screening: No symptoms or risk factors identified. Assessment: 16:17 General: Appears comfortable, Behavior is calm, cooperative. Neuro: Level of aa5 Consciousness is awake, alert, obeys commands, Oriented to person, place, time, situation. Respiratory: Airway is patent Respiratory effort is even, unlabored, Respiratory pattern is regular, symmetrical. Derm: Skin is dry, Skin is normal, Skin temperature is warm. 17:00 Reassessment: Patient states feeling better. Patient states symptoms have improved. GI: aa5 Patient currently denies nausea. 17:24 Reassessment: Pt given sandwich, fruit cup, and water per request. . Neuro: Level of aa5 Consciousness is awake, alert, obeys commands, Oriented to person, place, time, situation. Respiratory: Airway is patent Respiratory effort is even, unlabored, Respiratory pattern is regular, symmetrical. Derm: Skin is dry, Skin is normal, Skin temperature is warm. 17:50 Reassessment: Pt tolerating food well, pt now ambulatory to restroom . aa5 17:50 Reassessment: Patient states feeling better. aa5 Vital Signs: 14:46 BP 122 / 74; Pulse 87; Resp 16; Temp 98; Pulse Ox 100% on R/A; Weight 72.57 kg; Height iw 5 ft. 1 in. ; Pain 0/10; 16:20 BP 126 / 78; Pulse 70; Resp 18 S; Pulse Ox 100% on R/A; aa5 17:23 BP 115 / 69; Pulse 71; Resp 16 S; Pulse Ox 98% on R/A; aa5 14:46 Body Mass Index 30.23 (72.57 kg, 154.94 cm) iw 14:46 Pain Scale: Adult iw ED Course: 13:58 Patient arrived in ED. ra3 14:02 Vinh Celestin PA is PHCP. cp 14:02 Mc Longoria DO is Attending Physician. cp 14:47 Triage completed. iw 15:32 Initial lab(s) drawn, by me, sent to lab. Inserted saline lock: 20 gauge in left iw antecubital area, using aseptic technique. Blood collected. Flushed with 10 mL NS. 16:17 Patient has correct armband on for positive identification. Bed in low position. Call aa5 light in reach. Adult w/ patient. Pulse ox on. NIBP on. 18:19 Patient taken to ultrasound. db 18:44 TRANSVAG OB In Process Unspecified. EDMS 19:45 No provider procedures requiring assistance completed. IV discontinued, intact, tl4 bleeding controlled, No redness/swelling at site. Pressure dressing applied. Administered Medications: 16:17 Drug: Famotidine IVP 20 mg IVP once; dilute with 10 mL 0.9% NaCl; give over 2 minutes aa5 Route: IVP; Site: left antecubital; 16:20 Follow up: Response: No adverse reaction aa5 16:18 Drug: Ondansetron IVP 4 mg IVP once; over 2 minutes Route: IVP; Site: left antecubital; aa5 16:20 Follow up: Response: No adverse reaction aa5 16:18 Drug: NS 0.9% IV 1000 ml IV at 1 bolus Per protocol; to be given as a bolus over 60 aa5 minutes Route: IV; Rate: 1 bolus; Site: left antecubital; 17:18 Follow up: IV Status: Completed infusion; IV Intake: 1000ml aa5 Intake: 17:18 IV: 1000ml; Total: 1000ml. aa5 Outcome: 19:15 Discharge ordered by . cp 19:45 Discharged to home ambulatory, tl4 19:45 Condition: stable 19:45 Discharge instructions given to patient, Instructed on discharge instructions, follow up and referral plans. medication usage, Demonstrated understanding of instructions, follow-up care, medications, Prescriptions given X 1, 19:49 Patient left the ED. tl4 Signatures: Dispatcher [employer] EDAL Luda Kincaid RN RN iw Penny Coronado RN RN aa5 Vinh Celestin PA PA Berna Gomez RN RN db Logdahl, Toni, RN RN tl4 Bonnie López 3
[2024-10-06 20:05] VITALS: TEMP 98
[2024-10-06 20:16] VITALS: BP 115/69; O2SAT 98
== END 2024-10-06 19:49 | disposition home or self-care (01) ==
LOC: ER 13:56
DX: O21.9 Vomiting of pregnancy, unspecified (principal); O20.8 Other hemorrhage in early pregnancy; Z3A.01 Less than 8 weeks gestation of pregnancy
CPT/HCPCS: 96361; 85025; 36415; 83735; 81025; 81003; 83690; 80053; 76813; 96375; 96374; 99285; J2405; J7030